=== PATIENT | female | born 1965 | race African-American/Black ===

== ENCOUNTER 2017-11-23 10:55 | Inpatient (IN) | payer OTHER ==
[2017-11-23 13:35] VITALS: BMI 22.3
--- NOTE | 2017-11-23 14:12 | HP ---
COWS - Scale Resting Pulse: 0= [place] 80 or Below Sweatin= Chills/Flushing Restless Observation: 1= Difficult to Sit Still Pupil Size: 0= Normal to Room Light Bone or Joint Aches: 0= None Runny Nose/ Eye Tearin= Runny Nose/Eyes GI Upset > 30mins: 2= Nausea/Diarrhea Tremor Observation: 2= Slight Tremor Visible Yawning Observation: 1= 1-2x During Session Anxiety or Irritability: 2=Irritable/Anxious Goose Flesh Skin: 0=Smooth Skin COWS Score: 11 CIWA Score - CIWA Score Nausea/Vomitin Muscle Tremors: 3 Anxiety: 4-Mod. Anxious/Guarded Agitation: 3 Paroxysmal Sweats: 3 Orientation: 0-Oriented Tacttile Disturbances: 0-None Auditory Disturbances: 0-None Visual Disturbances: 0-None Headache: 0-None Present CIWA-Ar Total Score: 16 Admission ROS BHS - HPI Chief Complaint: "I am an addict and I need help." Patient is here to detox from Heroin and Alcohol. Allergies/Adverse Reactions: Allergies Allergy/AdvReac Type Severity Reaction Status Date / Time No Known Allergies Allergy Verified 11/23/17 13:59 History of Present Illness: Patient is a 52 YO female here to Detox from Heroin and Alcohol. This is patient 's first Detox admission at [facility]. Patient had a previous Detox admissions at [facility] in 09/2017 and at [facility] ([facility]) many years ago. Longest period of sobriety/non-drug use in recent years: approx. 1.5 years within last few years (while incarcerated). Exam Limitations: No Limitations - Ebola screening Have you traveled outside of the country in the last 21 days: No (N) Have you had contact with anyone from an Ebola affected area: No Have you been sick,other than usual withdrawal symptoms: No Do you have a fever: No - Review of Systems Constitutional: Chills, Diaphoresis, Fever, Loss of Appetite, Malaise, Night Sweats, Unintentional Wgt. Loss (Lost approx. 50 lbs. over last three years.) EENT: reports: Blurred Vision, Tearing Respiratory: reports: No Symptoms reported Cardiac: reports: No Symptoms Reported GI: reports: Nausea, Poor Appetite, Vomiting, Indigestion, Abdominal cramping : reports: No Symptoms Reported Musculoskeletal: reports: No Symptoms Reported Integumentary: reports: No Symptoms Reported Neuro: reports: Seizure (Seizure Disorder, Takes Dilantin. Last Seizure: 04/2017 ; evaluated at ER.), Tremors Endocrine: reports: No Symptoms Reported Hematology: reports: No Symptoms Reported, Swollen Glands Psychiatric: reports: Judgement Intact, Mood/Affect Appropiate, Orientated x3, Anxious, Depressed (No previous Treatment.) Other Systems: Reviewed and Negative Patient History - Patient Medical History Hx Anemia: No Hx Asthma: No Hx Chronic Obstructive Pulmonary Disease (COPD): No Hx Cancer: No Hx Cardiac Disorders: No Hx Congestive Heart Failure: No Hx Hypertension: No Hx Hypercholesterolemia: No Hx Pacemaker: No HX Cerebrovascular Accident: No Hx Seizures: Yes (Seizure Disorder, Takes Dilantin; Last Seizure: 04/2017.) Hx Dementia: No Hx Diabetes: No Hx Gastrointestinal Disorders: No Hx Liver Disease: No Hx Genitourinary Disorders: No Hx Sexually Transmitted Disorders: No Hx Renal Disease (ESRD): No Hx Thyroid Disease: No Hx Human Immunodeficiency Virus (HIV): No (Never Tested.) Hx Hepatitis C: No (Does not recall if ever tested, uncertain if postive for Hep B or C.) Hx Depression: Yes (No previous treatment. Patient Declines PSYCH eval. this admission.) Hx Suicide Attempt: No (PATIENT DENIES CURRENT SI / HI.) Hx Bipolar Disorder: No Hx Schizophrenia: No Other Medical History: Hep B or Hep C (tested positive in past, uncertain for which type). - Patient Surgical History Past Surgical History: No Hx Neurologic Surgery: No Hx Cataract Extraction: No Hx Cardiac Surgery: No Hx Lung Surgery: No Hx Breast Surgery: No Hx Breast Biopsy: No Hx Abdominal Surgery: No Hx Appendectomy: No Hx Cholecystectomy: No Hx Genitourinary Surgery: No Hx Section: No Hx Orthopedic Surgery: No Hx Hysterectomy: No Other Surgical History: DENIES. Anesthesia Reaction: No - PPD History Previous Implant?: Yes Documented Results: Negative w/o proof Implanted On Prior R Admission?: No PPD to be Administered?: Yes - Reproductive History Patient is a Female of Child Bearing Age (11 -55 yrs old): Yes LMP comment: Approx. 13 years ago. - Smoking Cessation Smoking history: Current every day smoker Have you smoked in the past 12 months: Yes Aproximately how many cigarettes per day: 20 Cigars Per Day: 0 Hx Chewing Tobacco Use: No Initiated information on smoking cessation: Yes 'Breaking Loose' booklet given: 11/23/17 (GIVEN TO PATIENT.) - Substance & Tx. History Hx Alcohol Use: Yes Hx Substance Use: Yes Substance Use Type: Alcohol, Cocaine, Heroin Hx Substance Use Treatment: Yes (Last Detox admission: [facility], 2017.) - Substances Abused Alcohol Route: Oral Frequency: 1-2 times per week Amount used: 8OZ BEER Age of first use: 2 Date of Last Use: 11/23/17 Cocaine Route: Smoking Frequency: Daily Amount used: $200 Age of first use: 25 Date of Last Use: 11/23/17 Heroin Route: SNIFF Frequency: Daily Amount used: 6 BAGS Age of first use: 12 Date of Last Use: 11/23/17 Family Disease History - Family Disease History Family History: Denies Admission Physical Exam BHS - Vital Signs Vital Signs: Vital Signs - 24 hr 11/23/17 11/23/17 13:27 13:32 Temperature 96.2 F L 96.2 F L Pulse Rate 65 65 Respiratory 20 20 Rate Blood Pressure 130/75 130/75 - Physical General Appearance: Yes: No Apparent Distress, Nourished, Appropriately Dressed , Tremorous, Anxious HEENTM: Yes: Hearing grossly Normal, Normocephalic, Normal Voice, JANNETTE, Pharynx Normal Respiratory: Yes: Chest Non-Tender, Lungs Clear, No Respiratory Distress, No Accessory Muscle Use Neck: Yes: No masses,lesions,Nodules, Supple, Trachea in good position Breast: Yes: Breast Exam Deferred Cardiology: Yes: Regular Rhythm, Regular Rate, S1, S2 Abdominal: Yes: Normal Bowel Sounds, Non Tender, Flat, Soft Genitourinary: Yes: Within Normal Limits Back: Yes: Normal Inspection Musculoskeletal: Yes: full range of Motion, Gait Steady Extremities: Yes: Normal Capillary Refill, Normal Range of Motion, Non-Tender, Tremors Neurological: Yes: Fully Oriented, Alert, Normal Mood/Affect, Normal Response Integumentary: Yes: Normal Color, Dry, Warm Lymphatic: Yes: Within Normal Limits - Diagnostic (1) Opioid dependence with withdrawal Current Visit: Yes Status: Acute (2) Alcohol dependence with uncomplicated withdrawal Current Visit: Yes Status: Acute (3) Cocaine dependence, uncomplicated Current Visit: Yes Status: Acute (4) Nicotine dependence Current Visit: Yes Status: Chronic Qualifiers: Nicotine product type: cigarettes Substance use status: uncomplicated Qualified Code(s): F17.210 - Nicotine dependence, cigarettes, uncomplicated (5) Seizure disorder Current Visit: Yes Status: Chronic Cleared for Admission [facility] - Detox or Rehab [facility] Level of Care: Medically Managed Detox Regimen/Protocol: Methadone/Librium S Breath Alcohol Content Breath Alcohol Content: 0 Urine Pregancy Test - Result Urine Test Results: Negative- NO Line Present Urine Drug Screen - Results Drug Screen Negative: No Urine Drug Screen Results: KANE-Cocaine, OPI-Opiates, BAR-Barbiturates
[2017-11-23] MEDS ORDERED: P-EPHED 60MG/TRIPROLIDI 2.5MG TABLET PO PRN (14:37)
[2017-11-23] MEDS ORDERED: MAG HYDROX/AL HYDROX/SIMETH 30 ML UNIT-DOSE CUP PO PRN (14:37)
[2017-11-23] MEDS ORDERED: IBUPROFEN 400 MG TABLET (FP) PO PRN (14:37)
[2017-11-23] MEDS ORDERED: MAGNESIUM CITRATE 300 ML BOTTLE PO PRN (14:37)
[2017-11-23] MEDS ORDERED: MENTHOL/PHENOL 1 EACH UD MM PRN (14:37)
[2017-11-23] MEDS ORDERED: MAGNESIUM HYDROX 2400MG/30ML ORAL SUSPENSION 30 ML CUP PO PRN (14:37)
[2017-11-23] MEDS ORDERED: ACETAMINOPHEN 325 MG TABLET (FP) PO PRN (14:37)
[2017-11-23] MEDS ORDERED: guaiFENesin/D-METHORPHAN HB 10 ML UNIT-DOSE CUPS PO PRN (14:37)
[2017-11-23] MEDS ORDERED: chlordiazePOXIDE HCL 25 MG CAPSULE PO PRN (14:37)
[2017-11-23] MEDS ORDERED: NICOTINE POLACRILEX 2 MG GUM BUC PRN (14:37)
[2017-11-23] MEDS ORDERED: LOPERAMIDE HCL 2 MG CAPSULE PO PRN (14:37)
[2017-11-23] MEDS ORDERED: chlordiazePOXIDE HCL 25 MG CAPSULE PO ONE (15:45)
[2017-11-23] MEDS ORDERED: METHADONE HCL 10 MG TABLET (FOR DETOX USE ONLY) PO ONE ×2 (15:45→23:00)
[2017-11-23] MEDS: PHENYTOIN NA EXTENDED 100 MG CAPSULE (FP) PO SCH ×2 (15:55→22:52)
[2017-11-23] MEDS: NICOTINE 21 MG/24 HOURS TOPICAL PATCH TD SCH (15:56)
[2017-11-23] MEDS: chlordiazePOXIDE HCL 25 MG CAPSULE PO SCH ×2 (18:34→22:52)
[2017-11-23 21:15] LABS: URINE APPEARANCE SL CLOUDY; URINE BILIRUBIN NEGATIVE (<2.0 mg/dL); URINE COLOR YELLOW; URINE GLUCOSE (UA) NEGATIVE (NEGATIVE)
[2017-11-23 21:16] LABS: URINE BLOOD NEGATIVE (NEGATIVE); URINE KETONE NEGATIVE (NEGATIVE); URINE LEUK ESTERASE TRACE (NEGATIVE); URINE NITRITE NEGATIVE (NEGATIVE); URINE PROTEIN NEGATIVE (NEGATIVE); URINE UROBILINOGEN NORMAL mg/dL (0.2-1.0)
[2017-11-23 21:17] LABS: EPI CELLS FEW /HPF (FEW); URINE BACTERIA RARE /hpf (NONE SEEN); URINE MUCUS RARE
[2017-11-23] MEDS ORDERED: MELATONIN 5 MG TABLETS PO PRN (22:00)
[2017-11-23] MEDS: THIAMINE HCL 100 MG TABLET (FP) PO SCH (22:52)
[2017-11-24] MEDS: PHENYTOIN NA EXTENDED 100 MG CAPSULE (FP) PO SCH ×3 (05:44→22:25)
[2017-11-24] MEDS: chlordiazePOXIDE HCL 25 MG CAPSULE PO SCH ×4 (05:44→22:25)
[2017-11-24] MEDS ORDERED: METHADONE HCL 10 MG TABLET (FOR DETOX USE ONLY) PO SCH (10:00)
[2017-11-24] MEDS: PRENATAL VITAMINS W/ FOLIC ACID TABLET (FP) PO SCH (10:40)
[2017-11-24] MEDS: NICOTINE 21 MG/24 HOURS TOPICAL PATCH TD SCH (10:41)
[2017-11-24 10:42] LABS: HEMATOCRIT 35.5 % (32.4-45.2); HEMOGLOBIN 11.6 GM/dL (10.7-15.3); MCH 28.3 pg (25.7-33.7); MCHC 32.7 g/dl (32.0-36.0); MEAN CELL VOLUME 86.5 fl (80-96); MEAN PLT VOLUME 8.9 fl (7.5-11.1); PLATELET COUNT 146 K/MM3 (134-434); RDW 15.8 % (11.6-15.6)
[2017-11-24 10:49] LABS: ALBUMIN 2.7 g/dl (3.4-5.0); ANION GAP 3 (8-16); BLOOD UREA NITROGEN 25 mg/dL (7-18); CALCIUM 7.9 mg/dL (8.5-10.1); CHLORIDE 113 mmol/L (98-107); CO2 29 mmol/L (21-32); GLUCOSE,RANDOM 91 mg/dL (74-106); POTASSIUM 4.3 mmol/L (3.5-5.1); SODIUM 145 mmol/L (136-145)
[2017-11-24 10:53] LABS: ALK PHOS 137 U/L (45-117); CREATININE 0.7 mg/dL (0.55-1.02); SGOT/AST 13 U/L (15-37); SGPT/ALT 16 U/L (12-78); TOT PROT 5.8 g/dl (6.4-8.2)
[2017-11-24 11:02] LABS: BILIRUBIN,TOTAL < 0.1 mg/dL (0.2-1.0)
--- NOTE | 2017-11-24 13:52 | PN ---
[facility] CIWA - CIWA Score Nausea/Vomitin Muscle Tremors: 3 Anxiety: 3 Agitation: 3 Paroxysmal Sweats: 1-Minimal Palms Moist Orientation: 0-Oriented Tacttile Disturbances: 1-Very Mild Itch/Numbness Auditory Disturbances: 1-Very Mild Visual Disturbances: 0-None Headache: 2-Mild CIWA-Ar Total Score: 17 BHS COWS - Scale Resting Pulse: 1= [place] 81-100 Sweatin= Chills/Flushing Restless Observation: 3= Extraneous Movement Pupil Size: 1= Pupils >than Normal Bone or Joint Aches: 2= Severe Diffuse Aches Runny Nose/ Eye Tearin= Runny Nose/Eyes GI Upset > 30mins: 2= Nausea/Diarrhea Tremor Observation of Outstretched Hands: 2= Slight Tremor Visible Yawning Observation: 1= 1-2x During Session Anxiety or Irritability: 2=Irritable/Anxious Goose Flesh Skin: 0=Smooth Skin COWS Score: 17 [facility] Progress Note (SOAP) Subjective: ALET,IRRITABLE,ANXIOUS,INTERRUPTED SLEEP,TREMOR,PAIN IN THE BODY AND BACK Objective: 11/24/17 13:50 Vital Signs Temperature 97.1 F L 11/24/17 10:50 Pulse Rate 82 11/24/17 10:50 Respiratory Rate 20 11/24/17 10:50 Blood Pressure 124/76 11/24/17 10:50 O2 Sat by Pulse Oximetry (%) EKG NSR,NORMAL ECG Laboratory Last Values WBC 3.0 K/mm3 (4.0-10.0) L 11/24/17 07:50 RBC 4.10 M/mm3 (3.60-5.2) 11/24/17 07:50 Hgb 11.6 GM/dL (10.7-15.3) 11/24/17 07:50 Hct 35.5 % (32.4-45.2) 11/24/17 07:50 MCV 86.5 fl (80-96) 11/24/17 07:50 MCH 28.3 pg (25.7-33.7) 11/24/17 07:50 MCHC 32.7 g/dl (32.0-36.0) 11/24/17 07:50 RDW 15.8 % (11.6-15.6) H 11/24/17 07:50 Plt Count 146 K/MM3 (134-434) 11/24/17 07:50 MPV 8.9 fl (7.5-11.1) 11/24/17 07:50 Sodium 145 mmol/L (136-145) 11/24/17 07:50 Potassium 4.3 mmol/L (3.5-5.1) 11/24/17 07:50 Chloride 113 mmol/L (98-107) H 11/24/17 07:50 Carbon Dioxide 29 mmol/L (21-32) 11/24/17 07:50 Anion Gap 3 (8-16) L 11/24/17 07:50 BUN 25 mg/dL (7-18) H 11/24/17 07:50 Creatinine 0.7 mg/dL (0.55-1.02) 11/24/17 07:50 Creat Clearance w eGFR > 60 (>60) 11/24/17 07:50 Random Glucose 91 mg/dL (74-106) 11/24/17 07:50 Calcium 7.9 mg/dL (8.5-10.1) L 11/24/17 07:50 Total Bilirubin < 0.1 mg/dL (0.2-1.0) L 11/24/17 07:50 AST 13 U/L (15-37) L 11/24/17 07:50 ALT 16 U/L (12-78) 11/24/17 07:50 Alkaline Phosphatase 137 U/L (45-117) H 11/24/17 07:50 Total Protein 5.8 g/dl (6.4-8.2) L 11/24/17 07:50 Albumin 2.7 g/dl (3.4-5.0) L 11/24/17 07:50 Urine Color Yellow 11/23/17 18:40 Urine Appearance Sl cloudy 11/23/17 18:40 Urine pH 6.0 (5.0-8.0) 11/23/17 18:40 Ur Specific [place] 1.025 (1.001-1.035) 11/23/17 18:40 Urine Protein Negative (NEGATIVE) 11/23/17 18:40 Urine Glucose (UA) Negative (NEGATIVE) 11/23/17 18:40 Urine Ketones Negative (NEGATIVE) 11/23/17 18:40 Urine Blood Negative (NEGATIVE) 11/23/17 18:40 Urine Nitrite Negative (NEGATIVE) 11/23/17 18:40 Urine Bilirubin Negative (<2.0 mg/dL) 11/23/17 18:40 Urine Urobilinogen Normal mg/dL (0.2-1.0) 11/23/17 18:40 Ur Leukocyte Esterase Trace (NEGATIVE) 11/23/17 18:40 Urine WBC (Auto) 5 /hpf (3-5) 11/23/17 18:40 Urine RBC (Auto) 2 /hpf (0-3) 11/23/17 18:40 Ur Epithelial Cells Few /HPF (FEW) 11/23/17 18:40 Urine Bacteria Rare /hpf (NONE SEEN) 11/23/17 18:40 Urine Mucus Rare 11/23/17 18:40 RPR Titer Nonreactive (NONREACTIVE) 11/24/17 07:50 HIV 1&2 Antibody Screen Negative 11/24/17 07:50 HIV P24 Antigen Negative 11/24/17 07:50 Assessment: 11/24/17 13:51 WITHDRAWAL SYMPTOM Plan: CONTINUE DETOX
--- NOTE | 2017-11-24 16:09 | PN ---
[facility] Progress Note Note: Laboratory Last Values WBC 3.0 K/mm3 (4.0-10.0) L 11/24/17 07:50 RBC 4.10 M/mm3 (3.60-5.2) 11/24/17 07:50 Hgb 11.6 GM/dL (10.7-15.3) 11/24/17 07:50 Hct 35.5 % (32.4-45.2) 11/24/17 07:50 MCV 86.5 fl (80-96) 11/24/17 07:50 MCH 28.3 pg (25.7-33.7) 11/24/17 07:50 MCHC 32.7 g/dl (32.0-36.0) 11/24/17 07:50 RDW 15.8 % (11.6-15.6) H 11/24/17 07:50 Plt Count 146 K/MM3 (134-434) 11/24/17 07:50 MPV 8.9 fl (7.5-11.1) 11/24/17 07:50 Sodium 145 mmol/L (136-145) 11/24/17 07:50 Potassium 4.3 mmol/L (3.5-5.1) 11/24/17 07:50 Chloride 113 mmol/L (98-107) H 11/24/17 07:50 Carbon Dioxide 29 mmol/L (21-32) 11/24/17 07:50 Anion Gap 3 (8-16) L 11/24/17 07:50 BUN 25 mg/dL (7-18) H 11/24/17 07:50 Creatinine 0.7 mg/dL (0.55-1.02) 11/24/17 07:50 Creat Clearance w eGFR > 60 (>60) 11/24/17 07:50 Random Glucose 91 mg/dL (74-106) 11/24/17 07:50 Calcium 7.9 mg/dL (8.5-10.1) L 11/24/17 07:50 Total Bilirubin < 0.1 mg/dL (0.2-1.0) L 11/24/17 07:50 AST 13 U/L (15-37) L 11/24/17 07:50 ALT 16 U/L (12-78) 11/24/17 07:50 Alkaline Phosphatase 137 U/L (45-117) H 11/24/17 07:50 Total Protein 5.8 g/dl (6.4-8.2) L 11/24/17 07:50 Albumin 2.7 g/dl (3.4-5.0) L 11/24/17 07:50 Urine Color Yellow 11/23/17 18:40 Urine Appearance Sl cloudy 11/23/17 18:40 Urine pH 6.0 (5.0-8.0) 11/23/17 18:40 Ur Specific [place] 1.025 (1.001-1.035) 11/23/17 18:40 Urine Protein Negative (NEGATIVE) 11/23/17 18:40 Urine Glucose (UA) Negative (NEGATIVE) 11/23/17 18:40 Urine Ketones Negative (NEGATIVE) 11/23/17 18:40 Urine Blood Negative (NEGATIVE) 11/23/17 18:40 Urine Nitrite Negative (NEGATIVE) 11/23/17 18:40 Urine Bilirubin Negative (<2.0 mg/dL) 11/23/17 18:40 Urine Urobilinogen Normal mg/dL (0.2-1.0) 11/23/17 18:40 Ur Leukocyte Esterase Trace (NEGATIVE) 11/23/17 18:40 Urine WBC (Auto) 5 /hpf (3-5) 11/23/17 18:40 Urine RBC (Auto) 2 /hpf (0-3) 11/23/17 18:40 Ur Epithelial Cells Few /HPF (FEW) 11/23/17 18:40 Urine Bacteria Rare /hpf (NONE SEEN) 11/23/17 18:40 Urine Mucus Rare 11/23/17 18:40 Phenytoin 5.6 ug/ml (10.0-20.0) L 11/24/17 07:50 RPR Titer Nonreactive (NONREACTIVE) 11/24/17 07:50 HIV 1&2 Antibody Screen Negative 11/24/17 07:50 HIV P24 Antigen Negative 11/24/17 07:50 DILANTIN LEVEL 5.6 DILANTIN 300 MS LOADING DOSE REPEAT DILANTIN LEVEL IN AM CONTINUE DILANTIN 100 MGS PO TID SEIZURE PRECAUTION
[2017-11-24] MEDS ORDERED: PHENYTOIN NA EXTENDED 100 MG CAPSULE (FP) PO ONE (16:15)
[2017-11-24] MEDS: THIAMINE HCL 100 MG TABLET (FP) PO SCH (22:25)
[2017-11-25] MEDS: PHENYTOIN NA EXTENDED 100 MG CAPSULE (FP) PO SCH ×3 (06:02→22:35)
[2017-11-25] MEDS: chlordiazePOXIDE HCL 25 MG CAPSULE PO SCH ×2 (06:02→11:03)
[2017-11-25] MEDS: PRENATAL VITAMINS W/ FOLIC ACID TABLET (FP) PO SCH (11:03)
[2017-11-25] MEDS: METHADONE HCL 5 MG TABLET (FOR DETOX USE ONLY) PO SCH (11:04)
[2017-11-25] MEDS: NICOTINE 21 MG/24 HOURS TOPICAL PATCH TD SCH (11:04)
[2017-11-25] MEDS ORDERED: PHENYTOIN NA EXTENDED 100 MG CAPSULE (FP) PO ONE (11:36)
--- NOTE | 2017-11-25 11:42 | PN ---
[facility] CIWA - CIWA Score Nausea/Vomitin-Mild Nausea/No Vomiting Muscle Tremors: 4-Moderate,w/Arms Extend Anxiety: 3 Agitation: 3 Paroxysmal Sweats: 1-Minimal Palms Moist Orientation: 0-Oriented Tacttile Disturbances: 1-Very Mild Itch/Numbness Auditory Disturbances: 0-None Visual Disturbances: 0-None Headache: 1-Very Mild CIWA-Ar Total Score: 14 BHS COWS - Scale Resting Pulse: 0= [place] 80 or Below Sweatin= Chills/Flushing Restless Observation: 1= Difficult to Sit Still Pupil Size: 0= Normal to Room Light Bone or Joint Aches: 2= Severe Diffuse Aches Runny Nose/ Eye Tearin= Runny Nose/Eyes GI Upset > 30mins: 2= Nausea/Diarrhea Tremor Observation of Outstretched Hands: 2= Slight Tremor Visible Yawning Observation: 2= >3x During Session Anxiety or Irritability: 2=Irritable/Anxious Goose Flesh Skin: 0=Smooth Skin COWS Score: 14 [facility] Progress Note (SOAP) Subjective: joint pain body ache stuffy nose sweat tremor anxiety restlessness trouble sleep at night Objective: 11/25/17 11:40 Vital Signs Temperature 97.7 F 11/25/17 07:04 Pulse Rate 73 11/25/17 07:04 Respiratory Rate 18 11/25/17 07:04 Blood Pressure 134/59 11/25/17 07:04 O2 Sat by Pulse Oximetry (%) Laboratory Last Values WBC 3.0 K/mm3 (4.0-10.0) L 11/24/17 07:50 RBC 4.10 M/mm3 (3.60-5.2) 11/24/17 07:50 Hgb 11.6 GM/dL (10.7-15.3) 11/24/17 07:50 Hct 35.5 % (32.4-45.2) 11/24/17 07:50 MCV 86.5 fl (80-96) 11/24/17 07:50 MCH 28.3 pg (25.7-33.7) 11/24/17 07:50 MCHC 32.7 g/dl (32.0-36.0) 11/24/17 07:50 RDW 15.8 % (11.6-15.6) H 11/24/17 07:50 Plt Count 146 K/MM3 (134-434) 11/24/17 07:50 MPV 8.9 fl (7.5-11.1) 11/24/17 07:50 Sodium 145 mmol/L (136-145) 11/24/17 07:50 Potassium 4.3 mmol/L (3.5-5.1) 11/24/17 07:50 Chloride 113 mmol/L (98-107) H 11/24/17 07:50 Carbon Dioxide 29 mmol/L (21-32) 11/24/17 07:50 Anion Gap 3 (8-16) L 11/24/17 07:50 BUN 25 mg/dL (7-18) H 11/24/17 07:50 Creatinine 0.7 mg/dL (0.55-1.02) 11/24/17 07:50 Creat Clearance w eGFR > 60 (>60) 11/24/17 07:50 Random Glucose 91 mg/dL (74-106) 11/24/17 07:50 Calcium 7.9 mg/dL (8.5-10.1) L 11/24/17 07:50 Total Bilirubin < 0.1 mg/dL (0.2-1.0) L 11/24/17 07:50 AST 13 U/L (15-37) L 11/24/17 07:50 ALT 16 U/L (12-78) 11/24/17 07:50 Alkaline Phosphatase 137 U/L (45-117) H 11/24/17 07:50 Total Protein 5.8 g/dl (6.4-8.2) L 11/24/17 07:50 Albumin 2.7 g/dl (3.4-5.0) L 11/24/17 07:50 Urine Color Yellow 11/23/17 18:40 Urine Appearance Sl cloudy 11/23/17 18:40 Urine pH 6.0 (5.0-8.0) 11/23/17 18:40 Ur Specific [place] 1.025 (1.001-1.035) 11/23/17 18:40 Urine Protein Negative (NEGATIVE) 11/23/17 18:40 Urine Glucose (UA) Negative (NEGATIVE) 11/23/17 18:40 Urine Ketones Negative (NEGATIVE) 11/23/17 18:40 Urine Blood Negative (NEGATIVE) 11/23/17 18:40 Urine Nitrite Negative (NEGATIVE) 11/23/17 18:40 Urine Bilirubin Negative (<2.0 mg/dL) 11/23/17 18:40 Urine Urobilinogen Normal mg/dL (0.2-1.0) 11/23/17 18:40 Ur Leukocyte Esterase Trace (NEGATIVE) 11/23/17 18:40 Urine WBC (Auto) 5 /hpf (3-5) 11/23/17 18:40 Urine RBC (Auto) 2 /hpf (0-3) 11/23/17 18:40 Ur Epithelial Cells Few /HPF (FEW) 11/23/17 18:40 Urine Bacteria Rare /hpf (NONE SEEN) 11/23/17 18:40 Urine Mucus Rare 11/23/17 18:40 Phenytoin 8.4 ug/ml (10.0-20.0) L D 11/25/17 07:30 RPR Titer Nonreactive (NONREACTIVE) 11/24/17 07:50 HIV 1&2 Antibody Screen Negative 11/24/17 07:50 HIV P24 Antigen Negative 11/24/17 07:50 lab noted dilantin 300 mg po now repet serum level 11/26/16 Assessment: 11/25/17 11:41 withdrawal sx seizure Plan: continue detox dilantin 300 mg x 1 now repeat dilantin 11/26/17
[2017-11-25] MEDS: chlordiazePOXIDE 5 MG CAPSULE PO SCH ×2 (17:43→22:35)
[2017-11-25] MEDS: THIAMINE HCL 100 MG TABLET (FP) PO SCH (22:35)
[2017-11-26] MEDS: chlordiazePOXIDE 5 MG CAPSULE PO SCH ×2 (06:42→10:27)
[2017-11-26] MEDS: PHENYTOIN NA EXTENDED 100 MG CAPSULE (FP) PO SCH ×3 (06:42→22:30)
[2017-11-26] MEDS: PRENATAL VITAMINS W/ FOLIC ACID TABLET (FP) PO SCH (10:26)
[2017-11-26] MEDS: METHADONE HCL 5 MG TABLET (FOR DETOX USE ONLY) PO SCH (10:27)
[2017-11-26] MEDS: NICOTINE 21 MG/24 HOURS TOPICAL PATCH TD SCH (10:27)
--- NOTE | 2017-11-26 12:44 | EKG ---
Test Reason : Blood Pressure : / mmHG Vent. Rate : 069 BPM Atrial Rate : 069 BPM P-R Int : 122 ms QRS Dur : 080 ms QT Int : 400 ms P-R-T Axes : 074 063 048 degrees QTc Int : 428 ms NORMAL SINUS RHYTHM NORMAL ECG NO PREVIOUS ECGS AVAILABLE Confirmed by CECELIA WOODALL MD ([id number]) on 11/26/2017 12:43:32 PM Referred By: Confirmed By:CECELIA WOODALL MD
--- NOTE | 2017-11-26 13:22 | PN ---
BHS Progress Note (SOAP) Subjective: sleepy offers no new complaint Objective: 11/26/17 13:20 ambulates steadily Vital Signs Temperature 96.3 F L 11/26/17 10:22 Pulse Rate 73 11/26/17 10:22 Respiratory Rate 18 11/26/17 10:22 Blood Pressure 121/78 11/26/17 10:22 O2 Sat by Pulse Oximetry (%) Assessment: 11/26/17 13:22 withdrawal sx Plan: Continue detox
[2017-11-26] MEDS: chlordiazePOXIDE HCL 10 MG CAPSULE PO SCH ×2 (17:16→22:31)
[2017-11-26] MEDS: THIAMINE HCL 100 MG TABLET (FP) PO SCH (22:30)
[2017-11-27] MEDS: PHENYTOIN NA EXTENDED 100 MG CAPSULE (FP) PO SCH ×2 (06:03→13:13)
[2017-11-27] MEDS: chlordiazePOXIDE HCL 10 MG CAPSULE PO SCH ×2 (06:03→10:04)
[2017-11-27] MEDS ORDERED: METHADONE HCL 10 MG TABLET (FOR DETOX USE ONLY) PO SCH (10:00)
[2017-11-27] MEDS: PRENATAL VITAMINS W/ FOLIC ACID TABLET (FP) PO SCH (10:02)
[2017-11-27] MEDS: NICOTINE 21 MG/24 HOURS TOPICAL PATCH TD SCH (10:04)
[2017-11-27 10:22] VITALS: BP 137/71; PULSE 83; TEMP 98.1
--- NOTE | 2017-11-27 11:25 | PN ---
BHS Progress Note (SOAP) Subjective: feeling better no body pain no joint aches no tremor less sweat Objective: 11/27/17 11:23 Vital Signs Temperature 98.1 F 11/27/17 10:21 Pulse Rate 83 11/27/17 10:21 Respiratory Rate 18 11/27/17 10:21 Blood Pressure 137/71 11/27/17 10:21 O2 Sat by Pulse Oximetry (%) Laboratory Last Values WBC 3.0 K/mm3 (4.0-10.0) L 11/24/17 07:50 RBC 4.10 M/mm3 (3.60-5.2) 11/24/17 07:50 Hgb 11.6 GM/dL (10.7-15.3) 11/24/17 07:50 Hct 35.5 % (32.4-45.2) 11/24/17 07:50 MCV 86.5 fl (80-96) 11/24/17 07:50 MCH 28.3 pg (25.7-33.7) 11/24/17 07:50 MCHC 32.7 g/dl (32.0-36.0) 11/24/17 07:50 RDW 15.8 % (11.6-15.6) H 11/24/17 07:50 Plt Count 146 K/MM3 (134-434) 11/24/17 07:50 MPV 8.9 fl (7.5-11.1) 11/24/17 07:50 Sodium 145 mmol/L (136-145) 11/24/17 07:50 Potassium 4.3 mmol/L (3.5-5.1) 11/24/17 07:50 Chloride 113 mmol/L (98-107) H 11/24/17 07:50 Carbon Dioxide 29 mmol/L (21-32) 11/24/17 07:50 Anion Gap 3 (8-16) L 11/24/17 07:50 BUN 25 mg/dL (7-18) H 11/24/17 07:50 Creatinine 0.7 mg/dL (0.55-1.02) 11/24/17 07:50 Creat Clearance w eGFR > 60 (>60) 11/24/17 07:50 Random Glucose 91 mg/dL (74-106) 11/24/17 07:50 Calcium 7.9 mg/dL (8.5-10.1) L 11/24/17 07:50 Total Bilirubin < 0.1 mg/dL (0.2-1.0) L 11/24/17 07:50 AST 13 U/L (15-37) L 11/24/17 07:50 ALT 16 U/L (12-78) 11/24/17 07:50 Alkaline Phosphatase 137 U/L (45-117) H 11/24/17 07:50 Total Protein 5.8 g/dl (6.4-8.2) L 11/24/17 07:50 Albumin 2.7 g/dl (3.4-5.0) L 11/24/17 07:50 Urine Color Yellow 11/23/17 18:40 Urine Appearance Sl cloudy 11/23/17 18:40 Urine pH 6.0 (5.0-8.0) 11/23/17 18:40 Ur Specific [place] 1.025 (1.001-1.035) 11/23/17 18:40 Urine Protein Negative (NEGATIVE) 11/23/17 18:40 Urine Glucose (UA) Negative (NEGATIVE) 11/23/17 18:40 Urine Ketones Negative (NEGATIVE) 11/23/17 18:40 Urine Blood Negative (NEGATIVE) 11/23/17 18:40 Urine Nitrite Negative (NEGATIVE) 11/23/17 18:40 Urine Bilirubin Negative (<2.0 mg/dL) 11/23/17 18:40 Urine Urobilinogen Normal mg/dL (0.2-1.0) 11/23/17 18:40 Ur Leukocyte Esterase Trace (NEGATIVE) 11/23/17 18:40 Urine WBC (Auto) 5 /hpf (3-5) 11/23/17 18:40 Urine RBC (Auto) 2 /hpf (0-3) 11/23/17 18:40 Ur Epithelial Cells Few /HPF (FEW) 11/23/17 18:40 Urine Bacteria Rare /hpf (NONE SEEN) 11/23/17 18:40 Urine Mucus Rare 11/23/17 18:40 Phenytoin 14.9 ug/ml (10.0-20.0) D 11/26/17 07:30 RPR Titer Nonreactive (NONREACTIVE) 11/24/17 07:50 HIV 1&2 Antibody Screen Negative 11/24/17 07:50 HIV P24 Antigen Negative 11/24/17 07:50 lab noted hypocalcemia Assessment: 11/27/17 11:25 mild withdrawal sx low calcium 11/27/17 11:25 11/27/17 11:26 seizure Plan: medically supervised detox melissa farr level
[2017-11-27] MEDS ORDERED: CALCIUM 250MG/VIT-D 125 UNITS 1 COMBO TABLET PO SCH (12:00)
--- NOTE | 2017-11-27 14:29 | DS ---
[facility] Detox Discharge Summary Admission Date: 11/23/17 Discharge Date: 11/27/17 - History Present History: Alcohol Dependence, Opioid Dependence Additional Comments: 52 years old female admitted on 11/23/17 for alcohol and opioid detox patient wants to terminate her detox regimen today that detox is not for her denies suicidal denies homocidal no self destructive behavior patient is alert oriented x 3 no acute distress health teaching on risk of addiction encourage aftercare as arranged by the counselor - Physical Exam Results Vital Signs: Vital Signs Temperature 98.1 F 11/27/17 10:21 Pulse Rate 83 11/27/17 10:21 Respiratory Rate 18 11/27/17 10:21 Blood Pressure 137/71 11/27/17 10:21 O2 Sat by Pulse Oximetry (%) Pertinent Admission Physical Exam Findings: withdrawal sx Vital Signs Temperature 98.1 F 11/27/17 10:21 Pulse Rate 83 11/27/17 10:21 Respiratory Rate 18 11/27/17 10:21 Blood Pressure 137/71 11/27/17 10:21 O2 Sat by Pulse Oximetry (%) Laboratory Last Values WBC 3.0 K/mm3 (4.0-10.0) L 11/24/17 07:50 RBC 4.10 M/mm3 (3.60-5.2) 11/24/17 07:50 Hgb 11.6 GM/dL (10.7-15.3) 11/24/17 07:50 Hct 35.5 % (32.4-45.2) 11/24/17 07:50 MCV 86.5 fl (80-96) 11/24/17 07:50 MCH 28.3 pg (25.7-33.7) 11/24/17 07:50 MCHC 32.7 g/dl (32.0-36.0) 11/24/17 07:50 RDW 15.8 % (11.6-15.6) H 11/24/17 07:50 Plt Count 146 K/MM3 (134-434) 11/24/17 07:50 MPV 8.9 fl (7.5-11.1) 11/24/17 07:50 Sodium 145 mmol/L (136-145) 11/24/17 07:50 Potassium 4.3 mmol/L (3.5-5.1) 11/24/17 07:50 Chloride 113 mmol/L (98-107) H 11/24/17 07:50 Carbon Dioxide 29 mmol/L (21-32) 11/24/17 07:50 Anion Gap 3 (8-16) L 11/24/17 07:50 BUN 25 mg/dL (7-18) H 11/24/17 07:50 Creatinine 0.7 mg/dL (0.55-1.02) 11/24/17 07:50 Creat Clearance w eGFR > 60 (>60) 11/24/17 07:50 Random Glucose 91 mg/dL (74-106) 11/24/17 07:50 Calcium 7.9 mg/dL (8.5-10.1) L 11/24/17 07:50 Total Bilirubin < 0.1 mg/dL (0.2-1.0) L 11/24/17 07:50 AST 13 U/L (15-37) L 11/24/17 07:50 ALT 16 U/L (12-78) 11/24/17 07:50 Alkaline Phosphatase 137 U/L (45-117) H 11/24/17 07:50 Total Protein 5.8 g/dl (6.4-8.2) L 11/24/17 07:50 Albumin 2.7 g/dl (3.4-5.0) L 11/24/17 07:50 Urine Color Yellow 11/23/17 18:40 Urine Appearance Sl cloudy 11/23/17 18:40 Urine pH 6.0 (5.0-8.0) 11/23/17 18:40 Ur Specific Bryce 1.025 (1.001-1.035) 11/23/17 18:40 Urine Protein Negative (NEGATIVE) 11/23/17 18:40 Urine Glucose (UA) Negative (NEGATIVE) 11/23/17 18:40 Urine Ketones Negative (NEGATIVE) 11/23/17 18:40 Urine Blood Negative (NEGATIVE) 11/23/17 18:40 Urine Nitrite Negative (NEGATIVE) 11/23/17 18:40 Urine Bilirubin Negative (<2.0 mg/dL) 11/23/17 18:40 Urine Urobilinogen Normal mg/dL (0.2-1.0) 11/23/17 18:40 Ur Leukocyte Esterase Trace (NEGATIVE) 11/23/17 18:40 Urine WBC (Auto) 5 /hpf (3-5) 11/23/17 18:40 Urine RBC (Auto) 2 /hpf (0-3) 11/23/17 18:40 Ur Epithelial Cells Few /HPF (FEW) 11/23/17 18:40 Urine Bacteria Rare /hpf (NONE SEEN) 11/23/17 18:40 Urine Mucus Rare 11/23/17 18:40 Phenytoin 14.9 ug/ml (10.0-20.0) D 11/26/17 07:30 RPR Titer Nonreactive (NONREACTIVE) 11/24/17 07:50 HIV 1&2 Antibody Screen Negative 11/24/17 07:50 HIV P24 Antigen Negative 11/24/17 07:50 lab noted - Treatment Hospital Course: Detox Protocol Followed, Responded well Patient has Accepted a Rehab Referral to: as per counselor arranged - Medication Discharge Medications: Ambulatory Orders Phenytoin Na Extended [Dilantin -] 100 mg PO TID #90 capsule 11/27/17 - Diagnosis (1) Alcohol dependence with uncomplicated withdrawal Status: Acute (2) Opioid dependence with withdrawal Status: Acute (3) Nicotine dependence Status: Acute Qualifiers: Nicotine product type: cigarettes Substance use status: in withdrawal Qualified Code(s): F17.213 - Nicotine dependence, cigarettes, with withdrawal (4) Seizure disorder Status: Chronic - AMA Did Patient Leave Against Medical Advice: Yes
[2017-11-28] MEDS ORDERED: METHADONE HCL 5 MG TABLET (FOR DETOX USE ONLY) PO SCH (06:00)
== END 2017-11-27 13:30 | disposition left against medical advice (07) | DRG 770 ==
LOC: YASAS 10:55 → Y6N 15:18
PROVIDERS: ADMIT Internal Medicine; ATTEND Internal Medicine
PROC: HZ2ZZZZ Detoxification Services for Substance Abuse Treatment (ICD-10-PCS; principal; 2017-11-23)
DX: F11.23 Opioid dependence with withdrawal (principal); F10.230 Alcohol dependence with withdrawal, uncomplicated; F14.20 Cocaine dependence, uncomplicated; F17.213 Nicotine dependence, cigarettes, with withdrawal; G40.909 Epilepsy, unspecified, not intractable, without status epilepticus
CPT/HCPCS: 36415; 80053; 80185; 81003; 81015; 85027; 86593; 87389; 93005; 93010

== ENCOUNTER 2018-01-14 11:39 | Inpatient (IN) | payer OTHER ==
[2018-01-14 13:37] VITALS: BMI 21.5
--- NOTE | 2018-01-14 15:38 | HP ---
COWS - Scale Resting Pulse: 0= [place] 80 or Below Sweatin= Chills/Flushing Restless Observation: 3= Extraneous Movement Pupil Size: 0= Normal to Room Light Bone or Joint Aches: 2= Severe Diffuse Aches Runny Nose/ Eye Tearin= Runny Nose/Eyes GI Upset > 30mins: 2= Nausea/Diarrhea Tremor Observation: 2= Slight Tremor Visible Yawning Observation: 2= >3x During Session Anxiety or Irritability: 2=Irritable/Anxious Goose Flesh Skin: 0=Smooth Skin COWS Score: 16 CIWA Score - CIWA Score Nausea/Vomitin-Mild Nausea/No Vomiting Muscle Tremors: 4-Moderate,w/Arms Extend Anxiety: 4-Mod. Anxious/Guarded Agitation: 4-Moderately Restless Paroxysmal Sweats: 1-Minimal Palms Moist Orientation: 1-Uncertain about Date Tacttile Disturbances: 1-Very Mild Itch/Numbness Auditory Disturbances: 0-None Visual Disturbances: 0-None Headache: 2-Mild CIWA-Ar Total Score: 18 Admission ROS S - HPI Chief Complaint: alcohol and opiate withdrawal sx Allergies/Adverse Reactions: Allergies Allergy/AdvReac Type Severity Reaction Status Date / Time No Known Allergies Allergy Verified 01/14/18 13:52 History of Present Illness: 52 years old female with long history of alcohol opiate nicotine dependence had seizure Exam Limitations: No Limitations - Ebola screening Have you traveled outside of the country in the last 21 days: No (N) Have you had contact with anyone from an Ebola affected area: No Have you been sick,other than usual withdrawal symptoms: No Do you have a fever: No - Review of Systems Constitutional: Loss of Appetite, Changes in sleep, Unintentional Wgt. Loss, Unexplained wgt Loss EENT: reports: Dental Problems (multiple teeth missing) Respiratory: reports: No Symptoms reported Cardiac: reports: No Symptoms Reported GI: reports: Nausea, Poor Appetite, Poor Fluid Intake, Abdominal cramping : reports: No Symptoms Reported Musculoskeletal: reports: Back Pain, Joint Pain, Muscle Pain, Neck Pain Integumentary: reports: No Symptoms Reported Neuro: reports: Seizure (01/12/18 since 1992 brain aneurythem), Tremors Endocrine: reports: No Symptoms Reported Hematology: reports: No Symptoms Reported Psychiatric: reports: Judgement Intact, Mood/Affect Appropiate, Orientated x3 Other Systems: Reviewed and Negative Patient History - Patient Medical History Hx Anemia: No Hx Asthma: No Hx Chronic Obstructive Pulmonary Disease (COPD): No Hx Cancer: No Hx Cardiac Disorders: No Hx Congestive Heart Failure: No Hx Hypertension: No Hx Hypercholesterolemia: No Hx Pacemaker: No HX Cerebrovascular Accident: No 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) Hx Dementia: No Hx Diabetes: No Hx Gastrointestinal Disorders: No Hx Liver Disease: No Hx Genitourinary Disorders: No Hx Sexually Transmitted Disorders: No (gonorrhea and syphilis) Hx Renal Disease (ESRD): No Hx Thyroid Disease: No Hx Human Immunodeficiency Virus (HIV): No (Never Tested.) Hx Hepatitis C: No (Does not recall if ever tested, uncertain if postive for Hep B or C.) Hx Depression: No Hx Suicide Attempt: No Hx Bipolar Disorder: No Hx Schizophrenia: No - Patient Surgical History Past Surgical History: Yes Hx Neurologic Surgery: Yes (brain aneurysm in 1992) Hx Cataract Extraction: No Hx Cardiac Surgery: No Hx Lung Surgery: No Hx Breast Surgery: No Hx Breast Biopsy: No Hx Abdominal Surgery: No Hx Appendectomy: No Hx Cholecystectomy: No Hx Genitourinary Surgery: No Hx Section: No Hx Orthopedic Surgery: No Hx Hysterectomy: No Other Surgical History: DENIES. Anesthesia Reaction: No - PPD History Previous Implant?: Yes Documented Results: Negative w/proof Implanted On Prior [facility] Admission?: Yes Date: 11/25/17 Results: 0 mm PPD to be Administered?: No - Reproductive History Patient is a Female of Child Bearing Age (11 -55 yrs old): Yes Last Menstrual Period: 01/15/08 Patient : No - Smoking Cessation Smoking history: Current every day smoker Have you smoked in the past 12 months: Yes Aproximately how many cigarettes per day: 10 Cigars Per Day: 0 Hx Chewing Tobacco Use: No Initiated information on smoking cessation: Yes 'Breaking Loose' booklet given: 01/14/18 - Substance & Tx. History Hx Alcohol Use: Yes Hx Substance Use: Yes Substance Use Type: Alcohol, Cocaine, Opiates Hx Substance Use Treatment: Yes (11/2017 [facility]) - Substances Abused Heroin Route: Inhalation Frequency: Daily Amount used: 6-8 bags Age of first use: 12 Date of Last Use: 01/14/18 Crack Route: Smoking Frequency: Daily Amount used: $300 Age of first use: 26 Date of Last Use: 01/14/18 Alcohol-vodka/beer Route: Oral Frequency: Daily Amount used: 2-3 pts./1- pk. Age of first use: 11 Date of Last Use: 01/14/18 Family Disease History - Family Disease History Family Disease History: [place]: Father (), Mother (), Other: Father , Mother, Brother (no contact), Sister (no contact) Admission Physical Exam [facility] - Vital Signs Vital Signs: Vital Signs - 24 hr 01/14/18 13:29 Temperature 97.9 F Pulse Rate 68 Respiratory 20 Rate Blood Pressure 154/86 - Physical General Appearance: Yes: Appropriately Dressed, Mild Distress, Thin, Tremorous, Irritable, Sweating, Anxious HEENTM: Yes: Hearing grossly Normal, Normocephalic, Normal Voice, Other ( craniotomy 1993 aneurythem repaired) Respiratory: Yes: Chest Non-Tender, Lungs Clear, Normal Breath Sounds, No Respiratory Distress, No Accessory Muscle Use Neck: Yes: Supple, Trachea in good position Breast: Yes: Breasts Symetrical, No Discharge Cardiology: Yes: Regular Rhythm, Regular Rate, S1, S2 Abdominal: Yes: Non Tender, Flat, Increased Bowel Sounds Genitourinary: Yes: Within Normal Limits Back: Yes: Normal Inspection Musculoskeletal: Yes: full range of Motion, Gait Steady, Back pain, Muscle Pain Extremities: Yes: Normal Inspection, Normal Range of Motion, Non-Tender, Tremors Neurological: Yes: Fully Oriented, Alert, Motor Strength 5/5, Normal Mood/Affect , Normal Response Integumentary: Yes: Warm Lymphatic: Yes: Within Normal Limits - Diagnostic (1) Alcohol dependence with uncomplicated withdrawal Current Visit: Yes Status: Acute (2) Nicotine dependence Current Visit: Yes Status: Acute Qualifiers: Nicotine product type: cigarettes Substance use status: in withdrawal Qualified Code(s): F17.213 - Nicotine dependence, cigarettes, with withdrawal (3) Opioid dependence with withdrawal Current Visit: Yes Status: Acute (4) Seizure disorder Current Visit: Yes Status: Chronic Comment: dilantin level pending Cleared for Admission [facility] - Detox or Rehab [facility] Level of Care: Medically Managed Detox Regimen/Protocol: Methadone/Librium [facility] Breath Alcohol Content Breath Alcohol Content: 0 Urine Pregancy Test - Result Urine Test Results: Negative- NO Line Present Urine Drug Screen - Results Drug Screen Negative: No Urine Drug Screen Results: KANE-Cocaine, OPI-Opiates, BAR-Barbiturates
[2018-01-14] MEDS ORDERED: IBUPROFEN 400 MG TABLET (FP) PO PRN (15:45)
[2018-01-14] MEDS ORDERED: MAGNESIUM HYDROX 2400MG/30ML ORAL SUSPENSION 30 ML CUP PO PRN (15:45)
[2018-01-14] MEDS ORDERED: LOPERAMIDE HCL 2 MG CAPSULE PO PRN (15:45)
[2018-01-14] MEDS ORDERED: ACETAMINOPHEN 325 MG TABLET (FP) PO PRN (15:45)
[2018-01-14] MEDS ORDERED: MAGNESIUM CITRATE 300 ML BOTTLE PO PRN (15:45)
[2018-01-14] MEDS ORDERED: chlordiazePOXIDE HCL 25 MG CAPSULE PO PRN (15:45)
[2018-01-14] MEDS ORDERED: guaiFENesin/D-METHORPHAN HB 10 ML UNIT-DOSE CUPS PO PRN (15:45)
[2018-01-14] MEDS ORDERED: MAG HYDROX/AL HYDROX/SIMETH 30 ML UNIT-DOSE CUP PO PRN (15:45)
[2018-01-14] MEDS ORDERED: P-EPHED 60MG/TRIPROLIDI 2.5MG TABLET PO PRN (15:45)
[2018-01-14] MEDS ORDERED: MENTHOL/PHENOL 1 EACH UD MM PRN (15:45)
[2018-01-14] MEDS ORDERED: NICOTINE POLACRILEX 2 MG GUM BC PRN (15:45)
[2018-01-14] MEDS ORDERED: METHADONE HCL 10 MG TABLET (FOR DETOX USE ONLY) PO ONE ×2 (16:45→23:00)
[2018-01-14] MEDS: chlordiazePOXIDE HCL 25 MG CAPSULE PO SCH ×2 (18:33→22:19)
[2018-01-14] MEDS: PHENYTOIN NA EXTENDED 100 MG CAPSULE (FP) PO SCH ×2 (18:34→22:17)
[2018-01-14] MEDS: NICOTINE 14 MG/24 HOURS TOPICAL PATCH TD SCH (18:36)
[2018-01-14] MEDS ORDERED: MELATONIN 5 MG TABLETS PO PRN (22:00)
[2018-01-14] MEDS: THIAMINE HCL 100 MG TABLET (FP) PO SCH (22:17)
[2018-01-15 02:19] LABS: URINE APPEARANCE CLOUDY; URINE BILIRUBIN NEGATIVE (<2.0 mg/dL); URINE BLOOD NEGATIVE (NEGATIVE); URINE COLOR AMBER; URINE GLUCOSE (UA) NEGATIVE (NEGATIVE); URINE KETONE NEGATIVE (NEGATIVE); URINE LEUK ESTERASE TRACE (NEGATIVE); URINE NITRITE POSITIVE (NEGATIVE)
[2018-01-15 02:41] LABS: URINE PROTEIN 1+ (NEGATIVE)
[2018-01-15 02:52] LABS: EPI CELLS FEW /HPF (FEW); URINE BACTERIA FEW /hpf (NONE SEEN); URINE MUCUS MANY
[2018-01-15] MEDS: PHENYTOIN NA EXTENDED 100 MG CAPSULE (FP) PO SCH ×3 (05:18→22:16)
[2018-01-15] MEDS: chlordiazePOXIDE HCL 25 MG CAPSULE PO SCH ×4 (05:18→22:16)
[2018-01-15] MEDS ORDERED: METHADONE HCL 10 MG TABLET (FOR DETOX USE ONLY) PO SCH (10:00)
[2018-01-15 10:22] LABS: HEMATOCRIT 35.6 % (32.4-45.2); HEMOGLOBIN 11.5 GM/dL (10.7-15.3); MCH 28.6 pg (25.7-33.7); MCHC 32.4 g/dl (32.0-36.0); MEAN CELL VOLUME 88.3 fl (80-96); MEAN PLT VOLUME 9.1 fl (7.5-11.1); PLATELET COUNT 219 K/MM3 (134-434); RBC 4.03 M/mm3 (3.60-5.2); RDW 14.8 % (11.6-15.6); WHITE BLOOD COUNT 4.4 K/mm3 (4.0-10.0)
[2018-01-15] MEDS: PRENATAL VITAMINS W/ FOLIC ACID TABLET (FP) PO SCH (10:31)
[2018-01-15] MEDS: NICOTINE 14 MG/24 HOURS TOPICAL PATCH TD SCH (10:32)
[2018-01-15 10:46] LABS: ALBUMIN 3.1 g/dl (3.4-5.0); ANION GAP 9 (8-16); BILIRUBIN,TOTAL 0.2 mg/dL (0.2-1.0); BLOOD UREA NITROGEN 17 mg/dL (7-18); CALCIUM 8.4 mg/dL (8.5-10.1); CHLORIDE 109 mmol/L (98-107); CO2 27 mmol/L (21-32); CREATININE 0.8 mg/dL (0.55-1.02); GLUCOSE,RANDOM 80 mg/dL (74-106); POTASSIUM 4.3 mmol/L (3.5-5.1); SGOT/AST 20 U/L (15-37); SGPT/ALT 21 U/L (12-78); SODIUM 145 mmol/L (136-145); TOT PROT 6.9 g/dl (6.4-8.2)
[2018-01-15 10:49] LABS: ALK PHOS 153 U/L (45-117)
--- NOTE | 2018-01-15 11:04 | PN ---
[facility] CIWA - CIWA Score Nausea/Vomitin Muscle Tremors: 3 Anxiety: 2 Agitation: 2 Paroxysmal Sweats: 1-Minimal Palms Moist Orientation: 0-Oriented Tacttile Disturbances: 1-Very Mild Itch/Numbness Auditory Disturbances: 1-Very Mild Visual Disturbances: 1-Very Mild Sensitivity Headache: 2-Mild CIWA-Ar Total Score: 16 BHS COWS - Scale Resting Pulse: 0= [place] 80 or Below Sweatin= Chills/Flushing Restless Observation: 3= Extraneous Movement Pupil Size: 1= Pupils >than Normal Bone or Joint Aches: 2= Severe Diffuse Aches Runny Nose/ Eye Tearin= Runny Nose/Eyes GI Upset > 30mins: 2= Nausea/Diarrhea Tremor Observation of Outstretched Hands: 2= Slight Tremor Visible Yawning Observation: 1= 1-2x During Session Anxiety or Irritability: 2=Irritable/Anxious Goose Flesh Skin: 0=Smooth Skin COWS Score: 16 [facility] Progress Note (SOAP) Subjective: alert,irritable,anxious,interrupted sleep,tremor,pain in the body and back Objective: 01/15/18 11:02 Vital Signs Temperature 98.1 F 01/15/18 09:19 Pulse Rate 79 01/15/18 09:19 Respiratory Rate 18 01/15/18 09:19 Blood Pressure 127/74 01/15/18 09:19 O2 Sat by Pulse Oximetry (%) ekg nsr,prolong qt 390/435 no chest pain,no sob,no dizziness Laboratory Last Values WBC 4.4 K/mm3 (4.0-10.0) D 01/15/18 06:00 RBC 4.03 M/mm3 (3.60-5.2) 01/15/18 06:00 Hgb 11.5 GM/dL (10.7-15.3) 01/15/18 06:00 Hct 35.6 % (32.4-45.2) 01/15/18 06:00 MCV 88.3 fl (80-96) 01/15/18 06:00 MCH 28.6 pg (25.7-33.7) 01/15/18 06:00 MCHC 32.4 g/dl (32.0-36.0) 01/15/18 06:00 RDW 14.8 % (11.6-15.6) 01/15/18 06:00 Plt Count 219 K/MM3 (134-434) D 01/15/18 06:00 MPV 9.1 fl (7.5-11.1) 01/15/18 06:00 Sodium 145 mmol/L (136-145) 01/15/18 06:00 Potassium 4.3 mmol/L (3.5-5.1) 01/15/18 06:00 Chloride 109 mmol/L (98-107) H 01/15/18 06:00 Carbon Dioxide 27 mmol/L (21-32) 01/15/18 06:00 Anion Gap 9 (8-16) 01/15/18 06:00 BUN 17 mg/dL (7-18) 01/15/18 06:00 Creatinine 0.8 mg/dL (0.55-1.02) 01/15/18 06:00 Creat Clearance w eGFR > 60 (>60) 01/15/18 06:00 Random Glucose 80 mg/dL (74-106) 01/15/18 06:00 Calcium 8.4 mg/dL (8.5-10.1) L 01/15/18 06:00 Total Bilirubin 0.2 mg/dL (0.2-1.0) D 01/15/18 06:00 AST 20 U/L (15-37) 01/15/18 06:00 ALT 21 U/L (12-78) 01/15/18 06:00 Alkaline Phosphatase 153 U/L (45-117) H 01/15/18 06:00 Total Protein 6.9 g/dl (6.4-8.2) 01/15/18 06:00 Albumin 3.1 g/dl (3.4-5.0) L 01/15/18 06:00 Urine Color Coleen 01/14/18 Unknown Urine Appearance Cloudy 01/14/18 Unknown Urine pH 6.0 (5.0-8.0) 01/14/18 Unknown Ur Specific [place] 1.030 (1.001-1.035) 01/14/18 Unknown Urine Protein 1+ (NEGATIVE) H 01/14/18 Unknown Urine Glucose (UA) Negative (NEGATIVE) 01/14/18 Unknown Urine Ketones Negative (NEGATIVE) 01/14/18 Unknown Urine Blood Negative (NEGATIVE) 01/14/18 Unknown Urine Nitrite Positive (NEGATIVE) 01/14/18 Unknown Urine Bilirubin Negative (<2.0 mg/dL) 01/14/18 Unknown Urine Urobilinogen 2.0 mg/dL (0.2-1.0) H 01/14/18 Unknown Ur Leukocyte Esterase Trace (NEGATIVE) 01/14/18 Unknown Urine WBC (Auto) 9 /hpf (3-5) 01/14/18 Unknown Urine RBC (Auto) 6 /hpf (0-3) 01/14/18 Unknown Ur Epithelial Cells Few /HPF (FEW) 01/14/18 Unknown Urine Bacteria Few /hpf (NONE SEEN) 01/14/18 Unknown Urine Mucus Many 01/14/18 Unknown 01/15/18 11:04 lab pending Assessment: 01/15/18 11:04 withdrawal symptom Plan: continue detox
--- NOTE | 2018-01-15 17:59 | EKG ---
Test Reason : Blood Pressure : / mmHG Vent. Rate : 075 BPM Atrial Rate : 075 BPM P-R Int : 114 ms QRS Dur : 078 ms QT Int : 390 ms P-R-T Axes : 069 053 050 degrees QTc Int : 435 ms NORMAL SINUS RHYTHM POSSIBLE ANTERIOR INFARCT , AGE UNDETERMINED ABNORMAL ECG WHEN COMPARED WITH ECG OF 14-JAN-2018 18:18, NO SIGNIFICANT CHANGE WAS FOUND Confirmed by MD KATHERINE, MILENA ([id number]) on 01/15/2018 5:59:23 PM Referred By: Confirmed By:MILENA MURPHY MD
--- NOTE | 2018-01-15 18:00 | EKG ---
Test Reason : Blood Pressure : / mmHG Vent. Rate : 074 BPM Atrial Rate : 074 BPM P-R Int : 122 ms QRS Dur : 076 ms QT Int : 390 ms P-R-T Axes : 075 057 052 degrees QTc Int : 432 ms NORMAL SINUS RHYTHM NONSPECIFIC ST ABNORMALITY ABNORMAL ECG WHEN COMPARED WITH ECG OF 23-NOV-2017 15:43, NO SIGNIFICANT CHANGE WAS FOUND Confirmed by MD KATHERINE, MILENA ([id number]) on 01/15/2018 5:59:50 PM Referred By: Confirmed By:MILENA MURPHY MD
[2018-01-15] MEDS: THIAMINE HCL 100 MG TABLET (FP) PO SCH (22:16)
[2018-01-16] MEDS: chlordiazePOXIDE HCL 25 MG CAPSULE PO SCH ×2 (06:12→10:50)
[2018-01-16] MEDS: PHENYTOIN NA EXTENDED 100 MG CAPSULE (FP) PO SCH ×3 (07:12→22:32)
[2018-01-16] MEDS: METHADONE HCL 5 MG TABLET (FOR DETOX USE ONLY) PO SCH (10:49)
[2018-01-16] MEDS: NICOTINE 14 MG/24 HOURS TOPICAL PATCH TD SCH (10:49)
[2018-01-16] MEDS: PRENATAL VITAMINS W/ FOLIC ACID TABLET (FP) PO SCH (10:49)
--- NOTE | 2018-01-16 11:27 | PN ---
[facility] CIWA - CIWA Score Nausea/Vomitin Muscle Tremors: 3 Anxiety: 2 Agitation: 2 (0) Paroxysmal Sweats: 1-Minimal Palms Moist Orientation: 0-Oriented Tacttile Disturbances: 1-Very Mild Itch/Numbness Auditory Disturbances: 1-Very Mild Visual Disturbances: 0-None Headache: 2-Mild CIWA-Ar Total Score: 15 BHS COWS - Scale Resting Pulse: 0= [place] 80 or Below Sweatin= Chills/Flushing Restless Observation: 3= Extraneous Movement Pupil Size: 1= Pupils >than Normal Bone or Joint Aches: 2= Severe Diffuse Aches Runny Nose/ Eye Tearin= Runny Nose/Eyes GI Upset > 30mins: 2= Nausea/Diarrhea Tremor Observation of Outstretched Hands: 2= Slight Tremor Visible Yawning Observation: 1= 1-2x During Session Anxiety or Irritability: 2=Irritable/Anxious Goose Flesh Skin: 0=Smooth Skin COWS Score: 16 S Progress Note (SOAP) Subjective: alert,irritable,anxious,interrupted sleep,pain in the body and back Objective: 01/16/18 11:24 Vital Signs Temperature 97.0 F L 01/16/18 09:37 Pulse Rate 77 01/16/18 09:37 Respiratory Rate 16 01/16/18 09:37 Blood Pressure 139/94 01/16/18 09:37 O2 Sat by Pulse Oximetry (%) Assessment: 01/16/18 11:25 withdrawal symptom Plan: continue detox
[2018-01-16] MEDS: chlordiazePOXIDE 5 MG CAPSULE PO SCH ×2 (18:10→22:31)
[2018-01-16] MEDS: THIAMINE HCL 100 MG TABLET (FP) PO SCH (22:32)
[2018-01-17] MEDS: chlordiazePOXIDE 5 MG CAPSULE PO SCH ×2 (06:20→10:21)
[2018-01-17] MEDS: PHENYTOIN NA EXTENDED 100 MG CAPSULE (FP) PO SCH ×3 (06:21→22:24)
[2018-01-17] MEDS ORDERED: PHENYTOIN NA EXTENDED 100 MG CAPSULE (FP) PO ONE (10:07)
--- NOTE | 2018-01-17 10:13 | PN ---
S Progress Note (SOAP) Subjective: alert,irritable,anxious,interrupted sleep,tremor,pain in the body and back Objective: 01/17/18 10:11 Vital Signs Temperature 98.1 F 01/17/18 09:14 Pulse Rate 83 01/17/18 09:14 Respiratory Rate 18 01/17/18 09:14 Blood Pressure 153/88 01/17/18 09:14 O2 Sat by Pulse Oximetry (%) Laboratory Last Values WBC 4.4 K/mm3 (4.0-10.0) D 01/15/18 06:00 RBC 4.03 M/mm3 (3.60-5.2) 01/15/18 06:00 Hgb 11.5 GM/dL (10.7-15.3) 01/15/18 06:00 Hct 35.6 % (32.4-45.2) 01/15/18 06:00 MCV 88.3 fl (80-96) 01/15/18 06:00 MCH 28.6 pg (25.7-33.7) 01/15/18 06:00 MCHC 32.4 g/dl (32.0-36.0) 01/15/18 06:00 RDW 14.8 % (11.6-15.6) 01/15/18 06:00 Plt Count 219 K/MM3 (134-434) D 01/15/18 06:00 MPV 9.1 fl (7.5-11.1) 01/15/18 06:00 Sodium 145 mmol/L (136-145) 01/15/18 06:00 Potassium 4.3 mmol/L (3.5-5.1) 01/15/18 06:00 Chloride 109 mmol/L (98-107) H 01/15/18 06:00 Carbon Dioxide 27 mmol/L (21-32) 01/15/18 06:00 Anion Gap 9 (8-16) 01/15/18 06:00 BUN 17 mg/dL (7-18) 01/15/18 06:00 Creatinine 0.8 mg/dL (0.55-1.02) 01/15/18 06:00 Creat Clearance w eGFR > 60 (>60) 01/15/18 06:00 Random Glucose 80 mg/dL (74-106) 01/15/18 06:00 Calcium 8.4 mg/dL (8.5-10.1) L 01/15/18 06:00 Total Bilirubin 0.2 mg/dL (0.2-1.0) D 01/15/18 06:00 AST 20 U/L (15-37) 01/15/18 06:00 ALT 21 U/L (12-78) 01/15/18 06:00 Alkaline Phosphatase 153 U/L (45-117) H 01/15/18 06:00 Total Protein 6.9 g/dl (6.4-8.2) 01/15/18 06:00 Albumin 3.1 g/dl (3.4-5.0) L 01/15/18 06:00 Urine Color Coleen 01/14/18 Unknown Urine Appearance Cloudy 01/14/18 Unknown Urine pH 6.0 (5.0-8.0) 01/14/18 Unknown Ur Specific [place] 1.030 (1.001-1.035) 01/14/18 Unknown Urine Protein 1+ (NEGATIVE) H 01/14/18 Unknown Urine Glucose (UA) Negative (NEGATIVE) 01/14/18 Unknown Urine Ketones Negative (NEGATIVE) 01/14/18 Unknown Urine Blood Negative (NEGATIVE) 01/14/18 Unknown Urine Nitrite Positive (NEGATIVE) 01/14/18 Unknown Urine Bilirubin Negative (<2.0 mg/dL) 01/14/18 Unknown Urine Urobilinogen 2.0 mg/dL (0.2-1.0) H 01/14/18 Unknown Ur Leukocyte Esterase Trace (NEGATIVE) 01/14/18 Unknown Urine WBC (Auto) 9 /hpf (3-5) 01/14/18 Unknown Urine RBC (Auto) 6 /hpf (0-3) 01/14/18 Unknown Ur Epithelial Cells Few /HPF (FEW) 01/14/18 Unknown Urine Bacteria Few /hpf (NONE SEEN) 01/14/18 Unknown Urine Mucus Many 01/14/18 Unknown Phenytoin < 2.5 ug/ml (10.0-20.0) L D 01/14/18 15:47 RPR Titer Nonreactive (NONREACTIVE) 01/15/18 06:00 Assessment: 01/17/18 10:12 withdrawal symptom Plan: continue detox,dilantin 300 mgs po now then tid,repeat dilantin in am
[2018-01-17] MEDS: METHADONE HCL 5 MG TABLET (FOR DETOX USE ONLY) PO SCH (10:20)
[2018-01-17] MEDS: PRENATAL VITAMINS W/ FOLIC ACID TABLET (FP) PO SCH (10:20)
[2018-01-17] MEDS: NICOTINE 14 MG/24 HOURS TOPICAL PATCH TD SCH (10:21)
[2018-01-17] MEDS: chlordiazePOXIDE HCL 10 MG CAPSULE PO SCH ×2 (17:47→22:24)
[2018-01-17] MEDS: THIAMINE HCL 100 MG TABLET (FP) PO SCH (22:24)
[2018-01-18] MEDS: chlordiazePOXIDE HCL 10 MG CAPSULE PO SCH ×2 (05:52→10:43)
[2018-01-18] MEDS: PHENYTOIN NA EXTENDED 100 MG CAPSULE (FP) PO SCH ×3 (05:52→22:35)
[2018-01-18] MEDS ORDERED: METHADONE HCL 10 MG TABLET (FOR DETOX USE ONLY) PO SCH (10:00)
[2018-01-18] MEDS: NICOTINE 14 MG/24 HOURS TOPICAL PATCH TD SCH (10:43)
[2018-01-18] MEDS: PRENATAL VITAMINS W/ FOLIC ACID TABLET (FP) PO SCH (10:43)
--- NOTE | 2018-01-18 12:07 | PN ---
S Progress Note (SOAP) Subjective: alert,irritable,anxious,interrupted sleep Objective: 01/18/18 12:06 Vital Signs Temperature 97.9 F 01/18/18 11:33 Pulse Rate 83 01/18/18 11:33 Respiratory Rate 16 01/18/18 11:33 Blood Pressure 141/75 01/18/18 11:33 O2 Sat by Pulse Oximetry (%) Laboratory Results - last 24 hr 01/18/18 07:30 Phenytoin 10.8 D Assessment: 01/18/18 12:06 withdrawal symptom Plan: continue detox,discharge in am
[2018-01-18] MEDS: THIAMINE HCL 100 MG TABLET (FP) PO SCH (22:35)
[2018-01-19] MEDS: PHENYTOIN NA EXTENDED 100 MG CAPSULE (FP) PO SCH (05:23)
[2018-01-19] MEDS ORDERED: METHADONE HCL 5 MG TABLET (FOR DETOX USE ONLY) PO SCH (06:00)
--- NOTE | 2018-01-19 10:00 | PN ---
S Progress Note (SOAP) Subjective: alert,no complaint Objective: 01/19/18 09:59 Vital Signs Temperature 97.7 F 01/19/18 06:45 Pulse Rate 75 01/19/18 06:45 Respiratory Rate 18 01/19/18 06:45 Blood Pressure 141/96 01/19/18 06:45 O2 Sat by Pulse Oximetry (%) Assessment: 01/19/18 09:59 detox completed,no withdrawal symptom Plan: discharge today,follow up with after care program as arrangement
--- NOTE | 2018-01-19 10:04 | DS ---
[facility] Detox Discharge Summary Admission Date: 01/14/18 Discharge Date: 01/19/18 - History Present History: Alcohol Dependence, Opioid Dependence Additional Comments: follow up with after care program as arrangement Pertinent Past History: nicotine dependence seizure disorder - Physical Exam Results Vital Signs: Vital Signs Temperature 97.7 F 01/19/18 06:45 Pulse Rate 75 01/19/18 06:45 Respiratory Rate 18 01/19/18 06:45 Blood Pressure 141/96 01/19/18 06:45 O2 Sat by Pulse Oximetry (%) Pertinent Admission Physical Exam Findings: withdrawal signs and symptom Vital Signs Temperature 97.7 F 01/19/18 06:45 Pulse Rate 75 01/19/18 06:45 Respiratory Rate 18 01/19/18 06:45 Blood Pressure 141/96 01/19/18 06:45 O2 Sat by Pulse Oximetry (%) Laboratory Last Values WBC 4.4 K/mm3 (4.0-10.0) D 01/15/18 06:00 RBC 4.03 M/mm3 (3.60-5.2) 01/15/18 06:00 Hgb 11.5 GM/dL (10.7-15.3) 01/15/18 06:00 Hct 35.6 % (32.4-45.2) 01/15/18 06:00 MCV 88.3 fl (80-96) 01/15/18 06:00 MCH 28.6 pg (25.7-33.7) 01/15/18 06:00 MCHC 32.4 g/dl (32.0-36.0) 01/15/18 06:00 RDW 14.8 % (11.6-15.6) 01/15/18 06:00 Plt Count 219 K/MM3 (134-434) D 01/15/18 06:00 MPV 9.1 fl (7.5-11.1) 01/15/18 06:00 Sodium 145 mmol/L (136-145) 01/15/18 06:00 Potassium 4.3 mmol/L (3.5-5.1) 01/15/18 06:00 Chloride 109 mmol/L (98-107) H 01/15/18 06:00 Carbon Dioxide 27 mmol/L (21-32) 01/15/18 06:00 Anion Gap 9 (8-16) 01/15/18 06:00 BUN 17 mg/dL (7-18) 01/15/18 06:00 Creatinine 0.8 mg/dL (0.55-1.02) 01/15/18 06:00 Creat Clearance w eGFR > 60 (>60) 01/15/18 06:00 Random Glucose 80 mg/dL (74-106) 01/15/18 06:00 Calcium 8.4 mg/dL (8.5-10.1) L 01/15/18 06:00 Total Bilirubin 0.2 mg/dL (0.2-1.0) D 01/15/18 06:00 AST 20 U/L (15-37) 01/15/18 06:00 ALT 21 U/L (12-78) 01/15/18 06:00 Alkaline Phosphatase 153 U/L (45-117) H 01/15/18 06:00 Total Protein 6.9 g/dl (6.4-8.2) 01/15/18 06:00 Albumin 3.1 g/dl (3.4-5.0) L 01/15/18 06:00 Urine Color [place] 01/14/18 Unknown Urine Appearance Cloudy 01/14/18 Unknown Urine pH 6.0 (5.0-8.0) 01/14/18 Unknown Ur Specific [place] 1.030 (1.001-1.035) 01/14/18 Unknown Urine Protein 1+ (NEGATIVE) H 01/14/18 Unknown Urine Glucose (UA) Negative (NEGATIVE) 01/14/18 Unknown Urine Ketones Negative (NEGATIVE) 01/14/18 Unknown Urine Blood Negative (NEGATIVE) 01/14/18 Unknown Urine Nitrite Positive (NEGATIVE) 01/14/18 Unknown Urine Bilirubin Negative (<2.0 mg/dL) 01/14/18 Unknown Urine Urobilinogen 2.0 mg/dL (0.2-1.0) H 01/14/18 Unknown Ur Leukocyte Esterase Trace (NEGATIVE) 01/14/18 Unknown Urine WBC (Auto) 9 /hpf (3-5) 01/14/18 Unknown Urine RBC (Auto) 6 /hpf (0-3) 01/14/18 Unknown Ur Epithelial Cells Few /HPF (FEW) 01/14/18 Unknown Urine Bacteria Few /hpf (NONE SEEN) 01/14/18 Unknown Urine Mucus Many 01/14/18 Unknown Phenytoin 10.8 ug/ml (10.0-20.0) D 01/18/18 07:30 RPR Titer Nonreactive (NONREACTIVE) 01/15/18 06:00 - Treatment Hospital Course: Detox Protocol Followed, Detoxed Safely, Responded well, Discharged Condition Good, Rehab Referral Accepted Patient has Accepted a Rehab Referral to: [facility] - Medication Discharge Medications: Ambulatory Orders Phenytoin Na Extended [Dilantin -] 100 mg PO TID #90 capsule 11/27/17 - Diagnosis (1) Opioid dependence with withdrawal Current Visit: Yes Status: Acute (2) Alcohol dependence with uncomplicated withdrawal Current Visit: Yes Status: Acute (3) Nicotine dependence Current Visit: Yes Status: Acute Qualifiers: Nicotine product type: cigarettes Substance use status: in withdrawal Qualified Code(s): F17.213 - Nicotine dependence, cigarettes, with withdrawal (4) Seizure disorder Current Visit: Yes Status: Chronic - AMA Did Patient Leave Against Medical Advice: No
[2018-01-19 10:24] VITALS: BP 135/80; PULSE 78; TEMP 97.2
[2018-01-19] MEDS: NICOTINE 14 MG/24 HOURS TOPICAL PATCH TD SCH (11:36)
[2018-01-19] MEDS: PRENATAL VITAMINS W/ FOLIC ACID TABLET (FP) PO SCH (11:36)
== END 2018-01-19 11:33 | disposition home or self-care (01) | DRG 773 ==
LOC: YASAS 11:39 → Y6N 15:39
PROVIDERS: ADMIT Surgery; ATTEND Surgery
PROC: HZ2ZZZZ Detoxification Services for Substance Abuse Treatment (ICD-10-PCS; principal; 2018-01-14)
DX: F11.23 Opioid dependence with withdrawal (principal); F10.230 Alcohol dependence with withdrawal, uncomplicated; F17.213 Nicotine dependence, cigarettes, with withdrawal; G40.909 Epilepsy, unspecified, not intractable, without status epilepticus; Z87.42 Personal history of other diseases of the female genital tract; Z86.79 Personal history of other diseases of the circulatory system
CPT/HCPCS: 36415; 80053; 80185; 81003; 81015; 85027; 86593; 93005; 93010

== ENCOUNTER 2018-07-22 10:49 | Inpatient (IN) | payer OTHER ==
[2018-07-22 11:23] VITALS: BMI 20.7
--- NOTE | 2018-07-22 13:33 | HP ---
CIWA Score - Admission Criteria OASAS Guidelines: Admission for Medically Managed Detox: Requires at least one of the followin. CIWA greater than 12 2. Seizures within the past 24 hours 3. Delirium tremens within the past 24 hours 4. Hallucinations within the past 24 hours 5. Acute intervention needed for co occurring medical disorder 6. Acute intervention needed for co occurring psychiatric disorder 7. Severe withdrawal that cannot be handled at a lower level of care (continued vomiting, continued diarrhea, abnormal vital signs) requiring intravenous medication and/or fluids 8. Admission ROS S - HPI Chief Complaint: I am here for rehab for further treatment. Allergies/Adverse Reactions: Allergies Allergy/AdvReac Type Severity Reaction Status Date / Time No Known Allergies Allergy Verified 07/22/18 12:30 History of Present Illness: pt is a 53yr old female with a history of alcohol, crack/cocaine dependence seeking rehab for treatment. Pt last detox was about 5months ago. Pt longest sobriety was 3yrs ago for about 9months. Exam Limitations: No Limitations - Ebola screening Have you traveled outside of the country in the last 21 days: No Have you had contact with anyone from an Ebola affected area: No Have you been sick,other than usual withdrawal symptoms: No Do you have a fever: No - Review of Systems Constitutional: No Symptoms Reported EENT: reports: Dental Problems (missing teeth.) Respiratory: reports: No Symptoms reported Cardiac: reports: No Symptoms Reported GI: reports: No Symptoms Reported : reports: No Symptoms Reported Musculoskeletal: reports: No Symptoms Reported Integumentary: reports: No Symptoms Reported Neuro: reports: Seizure (last seizure 7mo ago) Endocrine: reports: No Symptoms Reported Hematology: reports: No Symptoms Reported Psychiatric: reports: Judgement Intact, Mood/Affect Appropiate, Orientated x3, Anxious Other Systems: Reviewed and Negative Patient History - Patient Medical History Hx Anemia: No Hx Asthma: No Hx Chronic Obstructive Pulmonary Disease (COPD): No Hx Cancer: No Hx Cardiac Disorders: No Hx Congestive Heart Failure: No Hx Hypertension: No Hx Hypercholesterolemia: No Hx Pacemaker: No HX Cerebrovascular Accident: No Hx Seizures: Yes (r/t brain aneurysm-last episode was in 01/2018) Hx Dementia: No Hx Diabetes: No Hx Gastrointestinal Disorders: No Hx Liver Disease: No Hx Genitourinary Disorders: No Hx Sexually Transmitted Disorders: Yes (syphilis) Hx Renal Disease (ESRD): No Hx Thyroid Disease: No Hx Human Immunodeficiency Virus (HIV): No (negative) Hx Hepatitis C: Yes Hx Depression: Yes Hx Suicide Attempt: No (denies) Hx Bipolar Disorder: No Hx Schizophrenia: No - Patient Surgical History Past Surgical History: Yes Hx Neurologic Surgery: Yes (brain aneurysm in 1992) Hx Cataract Extraction: No Hx Cardiac Surgery: No Hx Lung Surgery: No Hx Breast Surgery: No Hx Breast Biopsy: No Hx Abdominal Surgery: No Hx Appendectomy: No Hx Cholecystectomy: No Hx Genitourinary Surgery: No Hx Section: No Hx Orthopedic Surgery: No Hx Hysterectomy: No Other Surgical History: DENIES. Anesthesia Reaction: No - PPD History Previous Implant?: Yes Documented Results: Negative w/proof Implanted On Prior [facility] Admission?: Yes Date: 11/25/17 Results: 0 mm PPD to be Administered?: No - Reproductive History Patient is a Female of Child Bearing Age (11 -55 yrs old): Yes Last Menstrual Period: 01/15/08 Patient : No - Smoking Cessation Smoking history: Current every day smoker Have you smoked in the past 12 months: Yes Aproximately how many cigarettes per day: 10 Cigars Per Day: 0 Hx Chewing Tobacco Use: No Initiated information on smoking cessation: Yes 'Breaking Loose' booklet given: 07/22/18 - Substance & Tx. History Hx Alcohol Use: Yes Hx Substance Use: Yes Substance Use Type: Alcohol, Cocaine Hx Substance Use Treatment: Yes (last detox [facility] 2017) - Substances Abused Crack Route: Smoking Frequency: Daily Amount used: $200 Age of first use: 25 Date of Last Use: 07/21/18 Alcohol-beer Route: Oral Frequency: 3-6 times per week Amount used: 7 (12 oz.) Age of first use: 3 Date of Last Use: 07/20/18 Family Disease History - Family Disease History Family Disease History: CA: Father (), Mother (), Other: Father , Mother, Brother (no contact), Sister (no contact) Admission Physical Exam [facility] - Vital Signs Vital Signs: Vital Signs - 24 hr 07/22/18 11:16 Temperature 96.0 F L Pulse Rate 73 Respiratory 17 Rate Blood Pressure 111/74 - Physical General Appearance: Yes: Within Normal Limits, Thin, Anxious HEENTM: Yes: Hearing grossly Normal, Normal Voice, Other (missing teeth) Respiratory: Yes: Lungs Clear, Normal Breath Sounds, No Respiratory Distress Neck: Yes: No masses,lesions,Nodules Breast: Yes: Within Normal Limits Cardiology: Yes: Regular Rhythm, Regular Rate, S1, S2 Abdominal: Yes: Normal Bowel Sounds, Non Tender, Flat Genitourinary: Yes: Within Normal Limits Back: Yes: Within Normal Limits Musculoskeletal: Yes: full range of Motion Extremities: Yes: Normal Capillary Refill, Normal Inspection, Tremors Neurological: Yes: Fully Oriented, Alert, Normal Response Integumentary: Yes: Normal Color Lymphatic: Yes: Within Normal Limits - Diagnostic (1) Cocaine dependence, uncomplicated Current Visit: Yes Status: Chronic (2) Nicotine dependence Current Visit: Yes Status: Chronic Qualifiers: Nicotine product type: cigarettes Substance use status: uncomplicated Qualified Code(s): F17.210 - Nicotine dependence, cigarettes, uncomplicated (3) Seizure disorder Current Visit: Yes Status: Chronic Comment: dilantin level pending (4) Methadone maintenance therapy patient Current Visit: Yes Status: Chronic Comment: dose verified with program last received today 07/22/18 with 110mg [facility] - Detox or Rehab [facility] Level of Care: Medically Managed Claeared for Rehab Admission: Yes [facility] Breath Alcohol Content Breath Alcohol Content: 0 Urine Drug Screen - Results Drug Screen Negative: No Urine Drug Screen Results: KANE-Cocaine, MTD-Methadone Inpatient Rehab Admission - Initial Determination Are CD services needed?: Yes Free of communicable disease: Yes Not in need of hospitalization: Yes - Rehab Admission Criteria Previous failed treatment: Yes Poor recovery environment: Yes Comorbidities: Yes Lacks judgement: Yes
[2018-07-22] MEDS ORDERED: MAG HYDROX/AL HYDROX/SIMETH 30 ML UNIT-DOSE CUP PO PRN (13:38)
[2018-07-22] MEDS ORDERED: guaiFENesin/D-METHORPHAN HB 10 ML UNIT-DOSE CUPS PO PRN (13:38)
[2018-07-22] MEDS ORDERED: P-EPHED 60MG/TRIPROLIDI 2.5MG TABLET PO PRN (13:38)
[2018-07-22] MEDS ORDERED: LOPERAMIDE HCL 2 MG CAPSULE PO PRN (13:38)
[2018-07-22] MEDS ORDERED: MENTHOL/PHENOL 1 EACH UD MM PRN (13:38)
[2018-07-22] MEDS ORDERED: IBUPROFEN 400 MG TABLET (FP) PO PRN (13:38)
[2018-07-22] MEDS ORDERED: ACETAMINOPHEN 325 MG TABLET (FP) PO PRN (13:38)
[2018-07-22] MEDS ORDERED: MAGNESIUM CITRATE 300 ML BOTTLE PO PRN (13:38)
[2018-07-22] MEDS ORDERED: MAGNESIUM HYDROX 2400MG/30ML ORAL SUSPENSION 30 ML CUP PO PRN (13:38)
[2018-07-22] MEDS ORDERED: hydrOXYzine PAMOATE 50 MG CAPSULE (FP) PO PRN (13:38)
[2018-07-22] MEDS ORDERED: NICOTINE POLACRILEX 4 MG GUM BUC PRN (13:38)
[2018-07-22 14:38] LABS: HEMATOCRIT 40.5 % (32.4-45.2); HEMOGLOBIN 12.8 GM/dL (10.7-15.3); MCH 28.1 pg (25.7-33.7); MCHC 31.5 g/dl (32.0-36.0); MEAN PLT VOLUME 9.1 fl (7.5-11.1); PLATELET COUNT 171 K/MM3 (134-434); RBC 4.55 M/mm3 (3.60-5.2); RDW 14.9 % (11.6-15.6); WHITE BLOOD COUNT 3.4 K/mm3 (4.0-10.0)
[2018-07-22 14:59] LABS: ALBUMIN 3.4 g/dl (3.4-5.0); ALK PHOS 194 U/L (45-117); ANION GAP 6 MMOL/L (8-16); BILIRUBIN,TOTAL 0.2 mg/dL (0.2-1); BLOOD UREA NITROGEN 17 mg/dL (7-18); CALCIUM 8.4 mg/dL (8.5-10.1); CHLORIDE 108 mmol/L (98-107); CO2 29 mmol/L (21-32); GLUCOSE,RANDOM 99 mg/dL (74-106); POTASSIUM 4.8 mmol/L (3.5-5.1); SGOT/AST 21 U/L (15-37); SGPT/ALT 29 U/L (13-61); SODIUM 142 mmol/L (136-145); TOT PROT 7.2 g/dl (6.4-8.2)
[2018-07-22] MEDS: PHENYTOIN NA EXTENDED 100 MG CAPSULE (FP) PO SCH ×2 (15:00→21:28)
--- NOTE | 2018-07-22 16:35 | HP ---
Psychiatrist Admission - Data Date of interview: 07/22/18 Admission source: [facility] Identifying data: This is the first inpatient rehasbilitation for this 53 years old AA single female mother of 38 yo daughter,undomiciled,supported by PA. Medical History: Significant for Seizure disorder,H/O Brain aneyrism. Psychiatric History: denies,no suicidal attempts,no psychiatric admissions reported. Physical/Sexual Abuse/Trauma History: denies Vital Signs: Vital Signs - 24 hr 07/22/18 07/22/18 11:16 15:19 Temperature 96.0 F L 97.6 F Pulse Rate 73 82 Respiratory 17 16 Rate Blood Pressure 111/74 101/64 Allergies/Adverse Reactions: Allergies Allergy/AdvReac Type Severity Reaction Status Date / Time No Known Allergies Allergy Verified 07/22/18 12:30 Date of last physical exam: 07/22/18 Concur with the findings of this exam: Yes - Substance Abuse/Tx History Hx Alcohol Use: No Hx Substance Use: Yes (cocaine since 25 yo,heroin since 12 yo,sniffing,8 bags daily,MMTP 110 mg) Substance Use Type: Cocaine, Heroin Hx Substance Use Treatment: Yes (never completed inpatient rehab treatment) Mental Status Exam - Mental Status Exam Alert and Oriented to: Time, Place, Person Cognitive Function: Grossly Intact Patient Appearance: Well Groomed Mood: Euthymic Affect: Mood Congruent Patient Behavior: Cooperative Speech Pattern: Clear Voice Loudness: Normal Thought Process: Goal Oriented Thought Disorder: Not Present Hallucinations: Denies Suicidal Ideation: Denies Homicidal Ideation: Denies Insight/Judgement: Fair Sleep: Fair Appetite: Good Muscle strength/Tone: Normal Gait/Station: Normal Psychiatric Findings - Problem List ([place] 1, 2,3) (1) Cocaine dependence, uncomplicated Current Visit: Yes Status: Chronic (2) Methadone maintenance therapy patient Current Visit: Yes Status: Chronic Comment: dose verified with program last received today 07/22/18 with 110mg with HANY Staples and HANY Renee at [facility] mmtp (3) Nicotine dependence Current Visit: Yes Status: Chronic Qualifiers: Nicotine product type: cigarettes Substance use status: uncomplicated Qualified Code(s): F17.210 - Nicotine dependence, cigarettes, uncomplicated (4) Seizure disorder Current Visit: Yes Status: Chronic Comment: dilantin level pending - Initial Treatment Plan Initial Treatment Plan: Will monitor progress.
[2018-07-22 17:16] LABS: URINE APPEARANCE CLOUDY; URINE BILIRUBIN NEGATIVE (<2.0 mg/dL); URINE COLOR YELLOW; URINE GLUCOSE (UA) NEGATIVE (NEGATIVE); URINE KETONE NEGATIVE (NEGATIVE); URINE LEUK ESTERASE 1+ (NEGATIVE); URINE NITRITE POSITIVE (NEGATIVE); URINE PROTEIN NEGATIVE (NEGATIVE); URINE UROBILINOGEN NEGATIVE mg/dL (0.2-1.0)
[2018-07-22 17:36] LABS: EPI CELLS RARE /HPF (FEW); URINE BACTERIA FEW /hpf (NONE SEEN); URINE HYALINE CAST 3 /lpf; URINE MUCUS FEW
[2018-07-22] MEDS: MELATONIN 5 MG TABLETS PO PRN (21:28)
[2018-07-22] MEDS: THIAMINE HCL 100 MG TABLET (FP) PO SCH (21:28)
[2018-07-23] MEDS ORDERED: METHADONE HCL 40 MG DISPERSABLE TABLET PO SCH (06:00)
[2018-07-23] MEDS ORDERED: METHADONE HCL 10 MG TABLET ONE (06:28)
[2018-07-23] MEDS ORDERED: METHADONE HCL 40 MG DISPERSABLE TABLET ONE (06:29)
[2018-07-23] MEDS: METHADONE 80 MG, METHADONE 30 MG PO SCH (06:44)
[2018-07-23] MEDS: PHENYTOIN NA EXTENDED 100 MG CAPSULE (FP) PO SCH ×3 (06:44→21:12)
[2018-07-23] MEDS: NICOTINE 21 MG/24 HOURS TOPICAL PATCH TD SCH (10:16)
[2018-07-23] MEDS: PRENATAL VITAMINS W/ FOLIC ACID TABLET (FP) PO SCH (10:16)
--- NOTE | 2018-07-23 13:03 | EKG ---
Test Reason : Blood Pressure : / mmHG Vent. Rate : 078 BPM Atrial Rate : 078 BPM P-R Int : 118 ms QRS Dur : 080 ms QT Int : 372 ms P-R-T Axes : 078 052 058 degrees QTc Int : 424 ms NORMAL SINUS RHYTHM NORMAL ECG WHEN COMPARED WITH ECG OF 15-JAN-2018 10:36, NO SIGNIFICANT CHANGE WAS FOUND Confirmed by Everett Borden ([id number]) on 07/23/2018 1:03:14 PM Referred By: Confirmed By:Everett Borden
[2018-07-23] MEDS ORDERED: PT OWN MED DRAWER 7, Y5N ONE (14:01)
[2018-07-23] MEDS: THIAMINE HCL 100 MG TABLET (FP) PO SCH (21:12)
[2018-07-23] MEDS: MELATONIN 5 MG TABLETS PO PRN (21:12)
[2018-07-24] MEDS ORDERED: METHADONE HCL 40 MG DISPERSABLE TABLET ONE (03:27)
[2018-07-24] MEDS ORDERED: METHADONE HCL 10 MG TABLET ONE (03:27)
[2018-07-24] MEDS: METHADONE 80 MG, METHADONE 30 MG PO SCH (06:16)
[2018-07-24] MEDS: PHENYTOIN NA EXTENDED 100 MG CAPSULE (FP) PO SCH ×3 (06:17→21:46)
[2018-07-24] MEDS: NICOTINE 21 MG/24 HOURS TOPICAL PATCH TD SCH (09:56)
[2018-07-24] MEDS: PRENATAL VITAMINS W/ FOLIC ACID TABLET (FP) PO SCH (09:56)
[2018-07-24] MEDS: THIAMINE HCL 100 MG TABLET (FP) PO SCH (21:46)
[2018-07-24] MEDS: MELATONIN 5 MG TABLETS PO PRN (21:46)
[2018-07-25] MEDS ORDERED: METHADONE HCL 10 MG TABLET ONE (03:26)
[2018-07-25] MEDS ORDERED: METHADONE HCL 40 MG DISPERSABLE TABLET ONE (03:26)
[2018-07-25] MEDS: METHADONE 80 MG, METHADONE 30 MG PO SCH (06:23)
[2018-07-25] MEDS: PHENYTOIN NA EXTENDED 100 MG CAPSULE (FP) PO SCH ×3 (06:24→21:23)
[2018-07-25] MEDS: NICOTINE 21 MG/24 HOURS TOPICAL PATCH TD SCH (09:53)
[2018-07-25] MEDS: PRENATAL VITAMINS W/ FOLIC ACID TABLET (FP) PO SCH (09:53)
[2018-07-25] MEDS: THIAMINE HCL 100 MG TABLET (FP) PO SCH (21:23)
[2018-07-26] MEDS ORDERED: METHADONE HCL 10 MG TABLET ONE (06:00)
[2018-07-26] MEDS ORDERED: METHADONE HCL 40 MG DISPERSABLE TABLET ONE (06:01)
[2018-07-26] MEDS: PHENYTOIN NA EXTENDED 100 MG CAPSULE (FP) PO SCH ×3 (06:15→21:37)
[2018-07-26] MEDS: METHADONE 80 MG, METHADONE 30 MG PO SCH (06:15)
[2018-07-26] MEDS: NICOTINE 21 MG/24 HOURS TOPICAL PATCH TD SCH (10:04)
[2018-07-26] MEDS: PRENATAL VITAMINS W/ FOLIC ACID TABLET (FP) PO SCH (10:04)
[2018-07-26] MEDS: THIAMINE HCL 100 MG TABLET (FP) PO SCH (21:37)
[2018-07-27] MEDS ORDERED: METHADONE HCL 40 MG DISPERSABLE TABLET ONE (03:26)
[2018-07-27] MEDS ORDERED: METHADONE HCL 10 MG TABLET ONE (03:26)
[2018-07-27] MEDS: METHADONE 80 MG, METHADONE 30 MG PO SCH (06:32)
[2018-07-27] MEDS: PHENYTOIN NA EXTENDED 100 MG CAPSULE (FP) PO SCH ×3 (06:34→21:16)
[2018-07-27] MEDS: NICOTINE 21 MG/24 HOURS TOPICAL PATCH TD SCH (09:54)
[2018-07-27] MEDS: PRENATAL VITAMINS W/ FOLIC ACID TABLET (FP) PO SCH (09:54)
[2018-07-27] MEDS: THIAMINE HCL 100 MG TABLET (FP) PO SCH (21:16)
[2018-07-27] MEDS: MELATONIN 5 MG TABLETS PO PRN (21:16)
[2018-07-28] MEDS ORDERED: METHADONE HCL 40 MG DISPERSABLE TABLET ONE (02:55)
[2018-07-28] MEDS ORDERED: METHADONE HCL 10 MG TABLET ONE (02:55)
[2018-07-28] MEDS: PHENYTOIN NA EXTENDED 100 MG CAPSULE (FP) PO SCH ×3 (06:27→21:13)
[2018-07-28] MEDS: METHADONE 80 MG, METHADONE 30 MG PO SCH (06:28)
[2018-07-28] MEDS: PRENATAL VITAMINS W/ FOLIC ACID TABLET (FP) PO SCH (10:02)
[2018-07-28] MEDS: NICOTINE 21 MG/24 HOURS TOPICAL PATCH TD SCH (10:02)
[2018-07-28] MEDS: MELATONIN 5 MG TABLETS PO PRN (21:13)
[2018-07-28] MEDS: THIAMINE HCL 100 MG TABLET (FP) PO SCH (21:13)
[2018-07-29] MEDS ORDERED: METHADONE HCL 10 MG TABLET PO SCH (06:00)
[2018-07-29] MEDS ORDERED: METHADONE HCL 40 MG DISPERSABLE TABLET ONE (06:13)
[2018-07-29] MEDS ORDERED: METHADONE HCL 10 MG TABLET ONE (06:13)
[2018-07-29] MEDS: METHADONE 80 MG, METHADONE 30 MG PO SCH (06:14)
[2018-07-29] MEDS: PHENYTOIN NA EXTENDED 100 MG CAPSULE (FP) PO SCH ×3 (06:14→21:05)
[2018-07-29 07:01] VITALS: TEMP 97.3
[2018-07-29] MEDS: PRENATAL VITAMINS W/ FOLIC ACID TABLET (FP) PO SCH (09:53)
[2018-07-29] MEDS: NICOTINE 21 MG/24 HOURS TOPICAL PATCH TD SCH (09:53)
[2018-07-29] MEDS: THIAMINE HCL 100 MG TABLET (FP) PO SCH (21:05)
[2018-07-29] MEDS: MELATONIN 5 MG TABLETS PO PRN (21:06)
[2018-07-30] MEDS ORDERED: METHADONE HCL 40 MG DISPERSABLE TABLET ONE (05:59)
[2018-07-30] MEDS ORDERED: METHADONE HCL 10 MG TABLET ONE (05:59)
[2018-07-30] MEDS: PHENYTOIN NA EXTENDED 100 MG CAPSULE (FP) PO SCH (06:23)
[2018-07-30] MEDS: METHADONE 80 MG, METHADONE 30 MG PO SCH (06:23)
[2018-07-30 07:24] VITALS: BP 132/75; PULSE 61
[2018-07-30] MEDS: NICOTINE 21 MG/24 HOURS TOPICAL PATCH TD SCH (10:26)
[2018-07-30] MEDS: PRENATAL VITAMINS W/ FOLIC ACID TABLET (FP) PO SCH (10:26)
--- NOTE | 2018-07-30 11:06 | PN ---
[facility] Progress Note Note: Patient completed this program today.She has met her treatment goals and will continue to address her issues on ouaptient basis.patient is stable for discharge today.
--- NOTE | 2018-07-30 11:24 | PN ---
[facility] Progress Note Note: Pt was discharged. WAs in stable condition Vital Signs Temperature 97.3 F L 07/30/18 07:23 Pulse Rate 61 07/30/18 07:23 Respiratory Rate 18 07/30/18 07:23 Blood Pressure 132/75 07/30/18 07:23 O2 Sat by Pulse Oximetry (%) She will do aftercare by attending her [facility] methadone program and outpatient meetings. Pt will also follow up with her PCP Dr Palafox at the clinic on [address] [place], [place] Narcan and Dilantin was sent to [place] [facility] and pt verbalized knowing to go pick them up on her way out. Pt was accompanied off the unit by printing assistant
== END 2018-07-30 10:43 | disposition home or self-care (01) | DRG 772 ==
LOC: YASAS 10:49 → Y3E 13:59
PROVIDERS: ADMIT Psychiatry & Neurology Psychiatry; ATTEND Psychiatry & Neurology Psychiatry
PROC: HZ42ZZZ Group Counseling for Substance Abuse Treatment, Cognitive-Behavioral (ICD-10-PCS; principal; 2018-07-22)
DX: F14.20 Cocaine dependence, uncomplicated (principal); F11.20 Opioid dependence, uncomplicated; F17.210 Nicotine dependence, cigarettes, uncomplicated; G40.909 Epilepsy, unspecified, not intractable, without status epilepticus; Z86.79 Personal history of other diseases of the circulatory system; Z87.42 Personal history of other diseases of the female genital tract
CPT/HCPCS: 36415; 80053; 81003; 81015; 85027; 86593; 87389; 93005; 93010

== ENCOUNTER 2018-10-18 12:06 | Inpatient (IN) | payer OTHER ==
[2018-10-18 14:33] VITALS: BMI 25.1
--- NOTE | 2018-10-18 15:02 | HP ---
CIWA Score Nausea/Vomitin Muscle Tremors: 2 Anxiety: 2 Agitation: 2 Paroxysmal Sweats: 1-Minimal Palms Moist Orientation: 0-Oriented Tacttile Disturbances: 1-Very Mild Itch/Numbness Auditory Disturbances: 1-Very Mild Visual Disturbances: 0-None Headache: 2-Mild CIWA-Ar Total Score: 13 - Admission Criteria OASAS Guidelines: Admission for Medically Managed Detox: Requires at least one of the followin. CIWA greater than 12 2. Seizures within the past 24 hours 3. Delirium tremens within the past 24 hours 4. Hallucinations within the past 24 hours 5. Acute intervention needed for co occurring medical disorder 6. Acute intervention needed for co occurring psychiatric disorder 7. Severe withdrawal that cannot be handled at a lower level of care (continued vomiting, continued diarrhea, abnormal vital signs) requiring intravenous medication and/or fluids 8. Admission ROS [facility] - [facility] Chief Complaint: this 53 years old female with alcohol,crack dependence seeking detox,withdrawal symptom, multiple admissions in detox,last [facility] in 08/31 mmtp 120 mgs/day,last medicate today weight loss nicotine dependence seizure last 8 months ago s/p surgery of aneurysm hepatitis c treated no significant period of sobriety Allergies/Adverse Reactions: Allergies Allergy/AdvReac Type Severity Reaction Status Date / Time No Known Allergies Allergy Verified 07/22/18 12:30 History of Present Illness: this 53 years old female with alcohol,cocaine dependence,heroin abused on mmtp 120 mgs/day,last medicated today plese see chief complaint - Ebola screening Have you traveled outside of the country in the last 21 days: No Have you had contact with anyone from an Ebola affected area: No Have you been sick,other than usual withdrawal symptoms: No Do you have a fever: No - Review of Systems Constitutional: Loss of Appetite, Malaise, Night Sweats, Changes in sleep, Unintentional Wgt. Loss EENT: reports: Tearing, Nose Congestion Respiratory: reports: No Symptoms reported Cardiac: reports: No Symptoms Reported GI: reports: Nausea, Poor Appetite, Vomiting, Abdominal cramping : reports: No Symptoms Reported Musculoskeletal: reports: Back Pain, Muscle Pain Integumentary: reports: Dryness Neuro: reports: Headache, Tremors Endocrine: reports: No Symptoms Reported Hematology: reports: No Symptoms Reported Psychiatric: reports: No Sypmtoms Reported, Judgement Intact, Mood/Affect Appropiate, Orientated x3, Depressed (history of drug overdose [place]) Other Systems: Reviewed and Negative Patient History - Patient Medical History Hx Anemia: No Hx Asthma: No Hx Chronic Obstructive Pulmonary Disease (COPD): No Hx Cancer: No Hx Cardiac Disorders: No Hx Congestive Heart Failure: No Hx Hypertension: No Hx Hypercholesterolemia: No Hx Pacemaker: No HX Cerebrovascular Accident: No Hx Seizures: Yes (r/t brain aneurysm-last episode was in 01/2018) Hx Dementia: No Hx Diabetes: No Hx Gastrointestinal Disorders: No Hx Liver Disease: No Hx Genitourinary Disorders: No Hx Sexually Transmitted Disorders: Yes (syphilis) Hx Renal Disease (ESRD): No Hx Thyroid Disease: No Hx Human Immunodeficiency Virus (HIV): No (08/31 last negative) Hx Hepatitis C: Yes Hx Depression: Yes Hx Suicide Attempt: Yes (overdose) Hx Bipolar Disorder: No Hx Schizophrenia: No Other Medical History: no suicidal,no homicidal - Patient Surgical History Past Surgical History: Yes Hx Neurologic Surgery: Yes (brain aneurysm in 1992 left) Hx Cataract Extraction: No Hx Cardiac Surgery: No Hx Lung Surgery: No Hx Breast Surgery: No Hx Breast Biopsy: No Hx Abdominal Surgery: No Hx Appendectomy: No Hx Cholecystectomy: No Hx Genitourinary Surgery: No Hx Section: No Hx Orthopedic Surgery: No Hx Hysterectomy: No Other Surgical History: DENIES. Anesthesia Reaction: No - PPD History Previous Implant?: Yes Documented Results: Negative w/proof Implanted On Prior [facility] Admission?: Yes Date: 11/25/17 Results: 0 mm PPD to be Administered?: No - Reproductive History Patient is a Female of Child Bearing Age (11 -55 yrs old): Yes Last Menstrual Period: 01/15/08 Patient : No - Smoking Cessation Smoking history: Current every day smoker Have you smoked in the past 12 months: Yes Aproximately how many cigarettes per day: 20 Cigars Per Day: 0 Hx Chewing Tobacco Use: No Initiated information on smoking cessation: Yes 'Breaking Loose' booklet given: 10/18/18 - Substance & Tx. History Hx Alcohol Use: Yes Hx Substance Use: Yes Substance Use Type: Alcohol, Cocaine, Heroin Hx Substance Use Treatment: Yes (alexa sanchez 08/31) - Substances Abused Alcohol Route: Oral Frequency: Daily Amount used: 2 pints vodka Age of first use: 12 Date of Last Use: 10/18/18 Crack Route: Smoking Frequency: Daily Amount used: $300 Age of first use: 25 Date of Last Use: 10/17/18 Heroin Route: Inhalation Frequency: Daily Amount used: 7-8 bags Age of first use: 12 Date of Last Use: 10/17/18 Family Disease History - Family Disease History Family Disease History: CA: Father (), Mother (), Other: Father , Mother, Brother (no contact), Sister (no contact) Admission Physical Exam [facility] - Vital Signs Vital Signs: Vital Signs - 24 hr 10/18/18 14:31 Temperature 96.0 F L Pulse Rate 70 Respiratory 18 Rate Blood Pressure 88/63 L - Physical General Appearance: Yes: Moderate Distress, Tremorous, Irritable, Sweating, Anxious HEENTM: Yes: Normal ENT Inspection, JANNETTE, Pharynx Normal, Other (no teeth upper no denture s/p surgery for brain aneurysm left) Respiratory: Yes: Lungs Clear, Normal Breath Sounds, No Respiratory Distress Neck: Yes: Within Normal Limits, Supple, Trachea in good position Breast: Yes: Breast Exam Deferred Cardiology: Yes: Within Normal Limits, Regular Rhythm, Regular Rate, S1, S2 Abdominal: Yes: Within Normal Limits, Normal Bowel Sounds, Non Tender, Soft Genitourinary: Yes: Within Normal Limits Back: Yes: Muscle Spasm Musculoskeletal: Yes: full range of Motion, Back pain, Muscle Pain Extremities: Yes: Normal Range of Motion, Tremors Neurological: Yes: dope mixer II-XII NML intact, Fully Oriented, Alert, Motor Strength 5/5 Integumentary: Yes: Dry Lymphatic: Yes: Within Normal Limits - Diagnostic (1) Alcohol dependence with uncomplicated withdrawal Current Visit: Yes Status: Acute (2) Cocaine dependence, uncomplicated Current Visit: No Status: Chronic (3) Methadone maintenance therapy patient Current Visit: No Status: Chronic Comment: dose verified with program last received today 07/22/18 with 110mg with HANY Staples and HANY Renee at [facility] (4) Nicotine dependence Current Visit: Yes Status: Chronic Qualifiers: Nicotine product type: cigarettes Substance use status: uncomplicated Qualified Code(s): F17.210 - Nicotine dependence, cigarettes, uncomplicated (5) Seizure disorder Current Visit: No Status: Chronic Comment: dilantin level pending (6) Heroin abuse Current Visit: Yes Status: Acute (7) No natural teeth Current Visit: Yes Status: Acute (8) Brain aneurysm Current Visit: Yes Status: Acute (9) Weight loss Current Visit: Yes Status: Acute (10) Depression Current Visit: Yes Status: Acute (11) History of suicidal ideation Current Visit: Yes Status: Acute (12) Hepatitis C Current Visit: Yes Status: Acute Cleared for Admission [facility] - Detox or Rehab [facility] Level of Care: Medically Managed Detox Regimen/Protocol: Valium S Breath Alcohol Content Breath Alcohol Content: 0 Urine Pregancy Test - Result Urine Test Results: Negative - NO Line Present Urine Drug Screen - Results Drug Screen Negative: No Urine Drug Screen Results: KANE-Cocaine, BZO-Benzodiazepines, MTD-Methadone Inpatient Rehab Admission - Rehab Decision to Admit Inpatient rehab admission?: No
[2018-10-18] MEDS ORDERED: IBUPROFEN 400 MG TABLET (FP) PO PRN (15:20)
[2018-10-18] MEDS ORDERED: MENTHOL/PHENOL 1 EACH UD MM PRN (15:20)
[2018-10-18] MEDS ORDERED: MAG HYDROX/AL HYDROX/SIMETH 30 ML UNIT-DOSE CUP PO PRN (15:20)
[2018-10-18] MEDS ORDERED: MAGNESIUM HYDROX 2400MG/30ML ORAL SUSPENSION 30 ML CUP PO PRN (15:20)
[2018-10-18] MEDS ORDERED: METHOCARBAMOL 500 MG TABLET PO PRN (15:20)
[2018-10-18] MEDS ORDERED: MAGNESIUM CITRATE 300 ML BOTTLE PO PRN (15:20)
[2018-10-18] MEDS ORDERED: BISMUTH SUBSALICYLATE 262 MG/15 ML BTL PO PRN (15:20)
[2018-10-18] MEDS ORDERED: ACETAMINOPHEN 325 MG TABLET (FP) PO PRN ×2 (15:20)
[2018-10-18] MEDS ORDERED: hydrOXYzine PAMOATE 25 MG CAPSULE (FP) PO PRN (15:20)
[2018-10-18] MEDS: diazePAM 5 MG TABLET PO PRN (17:50)
[2018-10-18] MEDS: diazePAM 5 MG TABLET PO SCH (22:57)
[2018-10-18] MEDS: THIAMINE HCL 100 MG TABLET (FP) PO SCH (22:57)
[2018-10-19] MEDS: diazePAM 5 MG TABLET PO SCH ×3 (06:22→22:17)
[2018-10-19] MEDS: METHADONE HCL 40 MG DISPERSABLE TABLET PO SCH (07:58)
[2018-10-19] MEDS: diazePAM 5 MG TABLET PO PRN (07:59)
[2018-10-19 10:11] LABS: HEMATOCRIT 39.2 % (32.4-45.2); MCH 30.2 pg (25.7-33.7); MCHC 33.2 g/dl (32.0-36.0); MEAN CELL VOLUME 90.9 fl (80-96); PLATELET COUNT 165 K/MM3 (134-434); RBC 4.32 M/mm3 (3.60-5.2); RDW 14.7 % (11.6-15.6); WHITE BLOOD COUNT 2.6 K/mm3 (4.0-10.0)
[2018-10-19] MEDS: PHENYTOIN NA EXTENDED 100 MG CAPSULE (FP) PO SCH (10:26)
[2018-10-19] MEDS: PRENATAL VITAMINS W/ FOLIC ACID TABLET (FP) PO SCH (10:26)
[2018-10-19 10:36] LABS: ALBUMIN 3.1 g/dl (3.4-5.0); ALK PHOS 173 U/L (45-117); ANION GAP 4 MMOL/L (8-16); BILIRUBIN,TOTAL 0.1 mg/dL (0.2-1); BLOOD UREA NITROGEN 19 mg/dL (7-18); CALCIUM 8.5 mg/dL (8.5-10.1); CHLORIDE 108 mmol/L (98-107); CO2 31 mmol/L (21-32); CREATININE 0.8 mg/dL (0.55-1.3); GLUCOSE,RANDOM 74 mg/dL (74-106); POTASSIUM 4.4 mmol/L (3.5-5.1); SGOT/AST 16 U/L (15-37); SGPT/ALT 34 U/L (13-61); SODIUM 143 mmol/L (136-145); TOT PROT 6.6 g/dl (6.4-8.2)
--- NOTE | 2018-10-19 15:25 | PN ---
[facility] CIWA - CIWA Score Nausea/Vomitin-No Nausea/No Vomiting Muscle Tremors: 3 Anxiety: 3 Agitation: 1-Slight > Activity Paroxysmal Sweats: 3 Orientation: 0-Oriented Tacttile Disturbances: 2-Mild Itch/Numbness/Burn Auditory Disturbances: 0-None Visual Disturbances: 1-Very Mild Sensitivity Headache: 0-None Present CIWA-Ar Total Score: 13 B[facility] Progress Note (SOAP) Subjective: Tremors, Anxious, Sweating. Objective: PATIENT A & O X 3, OBSERVED AMBULATING ON UNIT. IN NO ACUTE DISTRESS. 10/19/18 15:22 Vital Signs Temperature 96.7 F L 10/19/18 13:57 Pulse Rate 69 10/19/18 13:57 Respiratory Rate 18 10/19/18 13:57 Blood Pressure 93/62 10/19/18 13:57 O2 Sat by Pulse Oximetry (%) Laboratory Tests 10/19/18 10/19/18 10/19/18 07:40 07:40 07:40 WBC 2.6 L RBC 4.32 Hgb 13.0 Hct 39.2 MCV 90.9 MCH 30.2 MCHC 33.2 RDW 14.7 Plt Count 165 MPV 9.0 Sodium 143 Potassium 4.4 Chloride 108 H Carbon Dioxide 31 Anion Gap 4 L BUN 19 H Creatinine 0.8 Creat Clearance w eGFR > 60 Random Glucose 74 Calcium 8.5 Total Bilirubin 0.1 L AST 16 ALT 34 Alkaline Phosphatase 173 H Total Protein 6.6 Albumin 3.1 L Phenytoin 4.5 L LABS NOTED. Assessment: 10/19/18 15:23 WITHDRAWAL SYMPTOMS. Plan: CONTINUE DETOX. INCREASE DAILY PO FLUID INTAKE. X 1 DOSE OF DILATNIN ER (300 MG PO) ORDERED DUE TO LOW ADMISSION DILANTIN LEVEL.
[2018-10-19] MEDS ORDERED: PHENYTOIN NA EXTENDED 100 MG CAPSULE (FP) PO ONE (15:45)
--- NOTE | 2018-10-19 20:03 | CONSULT ---
[facility] Psychiatric Consult - Data Date of interview: 10/19/18 Admission source: [facility] Identifying data: Readmission to [facility] for this 53 y/o AA female self- referred for detoxification (heroin, cannabis, alcohol). Interviewed at [address] [place] [address]. Patient is single, a mother of one, homeless, unemployed and supported on food stamps. Substance Abuse History: Conformed by patient in this interview. Details in current [facility] report as follows : Smoking history: Current every day smoker. Have you smoked in the past 12 months: Yes. Aproximately how many cigarettes per day: 20. Cigars Per Day: 0. Hx Chewing Tobacco Use: No. Initiated information on smoking cessation: Yes. 'Breaking Loose' booklet given: . - Substance & Tx. History. Hx Alcohol Use: Yes. Hx Substance Use: Yes. Substance Use Type: Alcohol, Cocaine, Heroin. Hx Substance Use Treatment: Yes ( alexa sanchez 08/31). - Substances Abused. Alcohol. Route: Oral. Frequency : Daily. Amount used: 2 pints vodka. Age of first use: 12. Date of Last Use: 10/18/18. Crack. Route: Smoking. Frequency: Daily. Amount used: $300. Age of first use: 25. Date of Last Use: 10/17/18. Heroin. Route: Inhalation. Frequency: Daily. Amount used: 7-8 bags. Age of first use: 12. Date of Last Use: 10/17/18 Medical History: Remarkable for a history of seizure disorder, hepatitis C and neurosurgery for left brain aneurysm (01/2018). Psychiatric History: Patient denies history of psychiatric hospitalizations. Endorses brief history of OPD care for MDD. Treated in the past with sertraline. Lost to follow-up. Ms Chirinos denies history of suicide attempts. On methadone maintenance (120 mg/day). Physical/Sexual Abuse/Trauma History: Patient denies. Additional Comment: Urine Drug Screen Results: KANE-Cocaine, BZO-Benzodiazepines , MTD-Methadone. Noted. Mental Status Exam - Mental Status Exam Alert and Oriented to: Time, Place, Person Cognitive Function: Good Patient Appearance: Well Groomed Mood: Withdrawn Affect: Mood Congruent, Constricted Patient Behavior: Fatigued, Cooperative Speech Pattern: Clear Voice Loudness: Normal Thought Process: Goal Oriented Thought Disorder: Not Present Hallucinations: Denies Suicidal Ideation: Denies Homicidal Ideation: Denies Insight/Judgement: Poor Sleep: Well Appetite: Fair Gait/Station: Other (not observed. In bed for entire interview.) Psychiatric Findings - Problem List ([place] 1, 2,3) (1) Alcohol dependence with uncomplicated withdrawal Current Visit: Yes Status: Acute (2) Nicotine dependence Current Visit: Yes Status: Chronic Qualifiers: Nicotine product type: cigarettes Substance use status: uncomplicated Qualified Code(s): F17.210 - Nicotine dependence, cigarettes, uncomplicated
[2018-10-19] MEDS: MELATONIN 5 MG TABLETS PO PRN (22:18)
[2018-10-19] MEDS: THIAMINE HCL 100 MG TABLET (FP) PO SCH (22:18)
[2018-10-19 23:03] LABS: URINE APPEARANCE SLCLOUDY; URINE BILIRUBIN NEGATIVE (<2.0 mg/dL); URINE COLOR YELLOW; URINE GLUCOSE (UA) NEGATIVE (NEGATIVE); URINE KETONE NEGATIVE (NEGATIVE); URINE LEUK ESTERASE 3+ (NEGATIVE); URINE NITRITE POSITIVE (NEGATIVE); URINE PROTEIN NEGATIVE (NEGATIVE); URINE UROBILINOGEN NEGATIVE mg/dL (0.2-1.0)
[2018-10-19 23:15] LABS: EPI CELLS RARE /HPF (FEW); URINE BACTERIA MANY /hpf (NONE SEEN); URINE MUCUS FEW
[2018-10-20] MEDS: METHADONE HCL 40 MG DISPERSABLE TABLET PO SCH (05:54)
--- NOTE | 2018-10-20 10:41 | PN ---
S CIWA - CIWA Score Nausea/Vomitin-No Nausea/No Vomiting Muscle Tremors: 2 Anxiety: 1-Mildly Anxious Agitation: 2 Paroxysmal Sweats: 1-Minimal Palms Moist Orientation: 0-Oriented Tacttile Disturbances: 0-None Auditory Disturbances: 0-None Visual Disturbances: 0-None Headache: 2-Mild CIWA-Ar Total Score: 8 S Progress Note (SOAP) Subjective: feeling better today less tremor mild sweating sleep better at night patient has seizure treated with 300 mg dilantine daily admits none adherence patient had 4.7 serum level of dilantin patient preferred return to methadone treatment program for dilantin monitoring Objective: 10/20/18 10:37 Vital Signs Temperature 97.2 F L 10/20/18 09:38 Pulse Rate 69 10/20/18 09:38 Respiratory Rate 18 10/20/18 09:38 Blood Pressure 84/50 L 10/20/18 09:38 O2 Sat by Pulse Oximetry (%) Laboratory Last Values WBC 2.6 K/mm3 (4.0-10.0) L 10/19/18 07:40 RBC 4.32 M/mm3 (3.60-5.2) 10/19/18 07:40 Hgb 13.0 GM/dL (10.7-15.3) 10/19/18 07:40 Hct 39.2 % (32.4-45.2) 10/19/18 07:40 MCV 90.9 fl (80-96) 10/19/18 07:40 MCH 30.2 pg (25.7-33.7) 10/19/18 07:40 MCHC 33.2 g/dl (32.0-36.0) 10/19/18 07:40 RDW 14.7 % (11.6-15.6) 10/19/18 07:40 Plt Count 165 K/MM3 (134-434) 10/19/18 07:40 MPV 9.0 fl (7.5-11.1) 10/19/18 07:40 Sodium 143 mmol/L (136-145) 10/19/18 07:40 Potassium 4.4 mmol/L (3.5-5.1) 10/19/18 07:40 Chloride 108 mmol/L (98-107) H 10/19/18 07:40 Carbon Dioxide 31 mmol/L (21-32) 10/19/18 07:40 Anion Gap 4 MMOL/L (8-16) L 10/19/18 07:40 BUN 19 mg/dL (7-18) H 10/19/18 07:40 Creatinine 0.8 mg/dL (0.55-1.3) 10/19/18 07:40 Creat Clearance w eGFR > 60 (>60) 10/19/18 07:40 Random Glucose 74 mg/dL (74-106) 10/19/18 07:40 Calcium 8.5 mg/dL (8.5-10.1) 10/19/18 07:40 Total Bilirubin 0.1 mg/dL (0.2-1) L 10/19/18 07:40 AST 16 U/L (15-37) 10/19/18 07:40 ALT 34 U/L (13-61) 10/19/18 07:40 Alkaline Phosphatase 173 U/L (45-117) H 10/19/18 07:40 Total Protein 6.6 g/dl (6.4-8.2) 10/19/18 07:40 Albumin 3.1 g/dl (3.4-5.0) L 10/19/18 07:40 Urine Color Yellow 10/19/18 18:19 Urine Appearance Slcloudy 10/19/18 18:19 Urine pH 5.0 (5.0-8.0) 10/19/18 18:19 Ur Specific [place] 1.025 (1.010-1.035) 10/19/18 18:19 Urine Protein Negative (NEGATIVE) 10/19/18 18:19 Urine Glucose (UA) Negative (NEGATIVE) 10/19/18 18:19 Urine Ketones Negative (NEGATIVE) 10/19/18 18: Urine Blood Negative (NEGATIVE) 10/19/18 18: Urine Nitrite Positive (NEGATIVE) 10/19/18 18: Urine Bilirubin Negative (<2.0 mg/dL) 10/19/18 18: Urine Urobilinogen Negative mg/dL (0.2-1.0) 10/19/18 18:19 Ur Leukocyte Esterase 3+ (NEGATIVE) H D 10/19/18 18:19 Urine WBC (Auto) 37 /hpf (3-5) 03/09/19 18:19 Urine RBC (Auto) 3 /hpf (0-3) 10/19/18 18:19 Ur Epithelial Cells Rare /HPF (FEW) 10/19/18 18:19 Urine Bacteria Many /hpf (NONE SEEN) 10/19/18 18:19 Urine Mucus Few 10/19/18 18:19 Phenytoin 4.5 ug/ml (10.0-20.0) L 10/19/18 07:40 lab noted Assessment: 10/20/18 10:51 mild alcohol withdrawal sx 10/20/18 10:51 Plan: continue detox
[2018-10-20] MEDS: PRENATAL VITAMINS W/ FOLIC ACID TABLET (FP) PO SCH (10:49)
[2018-10-20] MEDS: PHENYTOIN NA EXTENDED 100 MG CAPSULE (FP) PO SCH (10:49)
[2018-10-20] MEDS: diazePAM 5 MG TABLET PO SCH ×2 (10:49→22:00)
[2018-10-20] MEDS: THIAMINE HCL 100 MG TABLET (FP) PO SCH (22:00)
[2018-10-20] MEDS: MELATONIN 5 MG TABLETS PO PRN (22:01)
[2018-10-21] MEDS: METHADONE HCL 40 MG DISPERSABLE TABLET PO SCH (05:21)
[2018-10-21] MEDS ORDERED: diazePAM 5 MG TABLET PO SCH (06:00)
[2018-10-21 09:37] VITALS: TEMP 96.8
[2018-10-21] MEDS: PHENYTOIN NA EXTENDED 100 MG CAPSULE (FP) PO SCH (10:19)
[2018-10-21] MEDS: PRENATAL VITAMINS W/ FOLIC ACID TABLET (FP) PO SCH (10:19)
--- NOTE | 2018-10-21 12:50 | DS ---
[facility] Detox Discharge Summary Admission Date: 10/18/18 Discharge Date: 10/21/18 - History Present History: Alcohol Dependence Additional Comments: 53 years old female admitted on for alcohol withdrawal stabilization completed detox regimen aftercare [facility] - Physical Exam Results Vital Signs: Vital Signs Temperature 96.8 F L 10/21/18 09:34 Pulse Rate 69 10/21/18 09:34 Respiratory Rate 18 10/21/18 09:34 Blood Pressure 93/59 L 10/21/18 09:34 O2 Sat by Pulse Oximetry (%) Pertinent Admission Physical Exam Findings: opiate withdrawal sx Laboratory Last Values WBC 2.6 K/mm3 (4.0-10.0) L 10/19/18 07:40 RBC 4.32 M/mm3 (3.60-5.2) 10/19/18 07:40 Hgb 13.0 GM/dL (10.7-15.3) 10/19/18 07:40 Hct 39.2 % (32.4-45.2) 10/19/18 07:40 MCV 90.9 fl (80-96) 10/19/18 07:40 MCH 30.2 pg (25.7-33.7) 10/19/18 07:40 MCHC 33.2 g/dl (32.0-36.0) 10/19/18 07:40 RDW 14.7 % (11.6-15.6) 10/19/18 07:40 Plt Count 165 K/MM3 (134-434) 10/19/18 07:40 MPV 9.0 fl (7.5-11.1) 10/19/18 07:40 Sodium 143 mmol/L (136-145) 10/19/18 07:40 Potassium 4.4 mmol/L (3.5-5.1) 10/19/18 07:40 Chloride 108 mmol/L (98-107) H 10/19/18 07:40 Carbon Dioxide 31 mmol/L (21-32) 10/19/18 07:40 Anion Gap 4 MMOL/L (8-16) L 10/19/18 07:40 BUN 19 mg/dL (7-18) H 10/19/18 07:40 Creatinine 0.8 mg/dL (0.55-1.3) 10/19/18 07:40 Creat Clearance w eGFR > 60 (>60) 10/19/18 07:40 Random Glucose 74 mg/dL (74-106) 10/19/18 07:40 Calcium 8.5 mg/dL (8.5-10.1) 10/19/18 07:40 Total Bilirubin 0.1 mg/dL (0.2-1) L 10/19/18 07:40 AST 16 U/L (15-37) 10/19/18 07:40 ALT 34 U/L (13-61) 10/19/18 07:40 Alkaline Phosphatase 173 U/L (45-117) H 10/19/18 07:40 Total Protein 6.6 g/dl (6.4-8.2) 10/19/18 07:40 Albumin 3.1 g/dl (3.4-5.0) L 10/19/18 07:40 Urine Color Yellow 10/19/18 18:19 Urine Appearance Slcloudy 10/19/18 18:19 Urine pH 5.0 (5.0-8.0) 10/19/18 18:19 Ur Specific [place] 1.025 (1.010-1.035) 10/19/18 18:19 Urine Protein Negative (NEGATIVE) 10/19/18 18: Urine Glucose (UA) Negative (NEGATIVE) 10/19/18 18: Urine Ketones Negative (NEGATIVE) 10/19/18 18: Urine Blood Negative (NEGATIVE) 10/19/18 18:19 Urine Nitrite Positive (NEGATIVE) 10/19/18 18: Urine Bilirubin Negative (<2.0 mg/dL) 10/19/18 18:19 Urine Urobilinogen Negative mg/dL (0.2-1.0) 10/19/18 18:19 Ur Leukocyte Esterase 3+ (NEGATIVE) H D 10/19/18 18:19 Urine WBC (Auto) 37 /hpf (3-5) 10/19/18 18:19 Urine RBC (Auto) 3 /hpf (0-3) 10/19/18 18:19 Ur Epithelial Cells Rare /HPF (FEW) 10/19/18 18:19 Urine Bacteria Many /hpf (NONE SEEN) 10/19/18 18:19 Urine Mucus Few 10/19/18 18:19 Phenytoin 4.5 ug/ml (10.0-20.0) L 10/19/18 07:40 RPR Titer Nonreactive (NONREACTIVE) 10/19/18 07:40 lab noted low wbc uti - Treatment Hospital Course: Detox Protocol Followed, Detoxed Safely, Responded well, Discharged Condition Good, Rehab Referral Accepted Patient has Accepted a Rehab Referral to: [facility] - Medication Discharge Medications: Ambulatory Orders Methadone [Dolophine -] 120 mg PO DAILY 10/18/18 Phenytoin Na Extended [Dilantin -] 300 mg PO DAILY #30 capsule 10/20/18 - Diagnosis (1) Seizure disorder Current Visit: Yes Status: Chronic (2) Methadone maintenance therapy patient Current Visit: Yes Status: Chronic (3) Alcohol dependence with uncomplicated withdrawal Current Visit: Yes Status: Acute (4) Hepatitis C Current Visit: Yes Status: Suspected Qualifiers: Viral hepatitis chronicity: chronic Hepatic coma status: without hepatic coma Qualified Code(s): B18.2 - Chronic viral hepatitis C - AMA Did Patient Leave Against Medical Advice: No
[2018-10-21 13:25] VITALS: BP 99/62; PULSE 71
== END 2018-10-21 15:58 | disposition other institution (70) | DRG 773 ==
LOC: YASAS 12:06 → Y3N 15:16
PROVIDERS: ADMIT Surgery; ATTEND Surgery
PROC: HZ2ZZZZ Detoxification Services for Substance Abuse Treatment (ICD-10-PCS; principal; 2018-10-18)
DX: F10.230 Alcohol dependence with withdrawal, uncomplicated (principal); F11.20 Opioid dependence, uncomplicated; F14.20 Cocaine dependence, uncomplicated; F17.210 Nicotine dependence, cigarettes, uncomplicated; G40.89 Other seizures; B18.2 Chronic viral hepatitis C; K08.109 Complete loss of teeth, unspecified cause, unspecified class; Z87.42 Personal history of other diseases of the female genital tract; Z86.79 Personal history of other diseases of the circulatory system; Z91.5 Personal history of self-harm
CPT/HCPCS: 36415; 80053; 80185; 81003; 81015; 85027; 86593

== ENCOUNTER 2018-10-21 15:47 | Inpatient (IN) | payer OTHER ==
--- NOTE | 2018-10-21 12:53 | HP ---
[facility] Rehab Assess/Revision - Admission History Admitted to Rehab from: [facility] Date of Admission to Rehab: 10/21/18 - Findings Detox History & Physical reviewed: Yes Concur with findings: Yes Comments/Additional Findings: transferred from detox to rehab admission as per protocol Inpatient Rehab Admission - Rehab Decision to Admit Inpatient rehab admission?: Yes - Initial Determination Are CD services needed?: Yes Free of communicable disease: Yes Not in need of hospitalization: Yes - Rehab Admission Criteria Previous failed treatment: Yes Poor recovery environment: Yes Comorbidities: Yes Lacks judgement: No Patient is meeting Inpatient Rehab admission criteria:: Yes
[~2018-10-21 15:47] MED LIST: ACETAMINOPHEN 325 MG TABLET (FP) PO PRN; LOPERAMIDE HCL 2 MG CAPSULE PO PRN; MAG HYDROX/AL HYDROX/SIMETH 30 ML UNIT-DOSE CUP PO PRN; MAGNESIUM CITRATE 300 ML BOTTLE PO PRN; MAGNESIUM HYDROX 2400MG/30ML ORAL SUSPENSION 30 ML CUP PO PRN; MENTHOL/PHENOL 1 EACH UD MM PRN; NICOTINE 14 MG/24 HOURS TOPICAL PATCH TD PRN; NICOTINE POLACRILEX 2 MG GUM BUC PRN; P-EPHED 60MG/TRIPROLIDI 2.5MG TABLET PO PRN; guaiFENesin 200 MG/10 ML 10 ML UNIT-DOSE CUPS PO PRN
[2018-10-21] MEDS: SULFAMETHOXAZOLE/TRIMETHOPRIM 800MG/160MG D.S. TABLET PO SCH ×2 (17:29→21:47)
[2018-10-21] MEDS: THIAMINE HCL 100 MG TABLET (FP) PO SCH (21:48)
[2018-10-22] MEDS ORDERED: MENTHOL/PHENOL 1 EACH UD MM PRN (06:35)
[2018-10-22] MEDS: METHADONE HCL 40 MG DISPERSABLE TABLET PO SCH (06:46)
[2018-10-22] MEDS: PRENATAL VITAMINS W/ FOLIC ACID TABLET (FP) PO SCH (09:59)
[2018-10-22] MEDS: SULFAMETHOXAZOLE/TRIMETHOPRIM 800MG/160MG D.S. TABLET PO SCH ×2 (10:00→21:16)
[2018-10-22] MEDS ORDERED: METHADONE HCL 40 MG DISPERSABLE TABLET PO SCH (10:00)
[2018-10-22] MEDS: PHENYTOIN NA EXTENDED 100 MG CAPSULE (FP) PO SCH (10:01)
[2018-10-22 10:23] LABS: BASO % 0.7 % (0-2.0); EOS % 4.2 % (0-4.5); HEMATOCRIT 35.4 % (32.4-45.2); HEMOGLOBIN 11.8 GM/dL (10.7-15.3); LYMPH % 40.1 % (8-40); MCH 29.6 pg (25.7-33.7); MCHC 33.3 g/dl (32.0-36.0); MEAN PLT VOLUME 9.2 fl (7.5-11.1); MONO % 11.4 % (3.8-10.2); NEUT % 43.6 % (42.8-82.8); PLATELET COUNT 185 K/MM3 (134-434); RBC 3.98 M/mm3 (3.60-5.2); RDW 14.6 % (11.6-15.6)
[2018-10-22 15:33] LABS: URINE APPEARANCE CLOUDY; URINE BILIRUBIN NEGATIVE (<2.0 mg/dL); URINE COLOR AMBER; URINE GLUCOSE (UA) NEGATIVE (NEGATIVE); URINE KETONE NEGATIVE (NEGATIVE); URINE LEUK ESTERASE TRACE (NEGATIVE); URINE NITRITE NEGATIVE (NEGATIVE); URINE PROTEIN NEGATIVE (NEGATIVE); URINE UROBILINOGEN NEGATIVE mg/dL (0.2-1.0)
[2018-10-22 15:36] LABS: EPI CELLS MODERATE /HPF (FEW); URINE HYALINE CAST 5 /lpf; URINE MUCUS RARE
--- NOTE | 2018-10-22 15:39 | PN ---
[facility] Progress Note Note: Laboratory Tests 10/22/18 10/22/18 10/22/18 08:30 08:30 08:30 WBC 3.0 L RBC 3.98 Hgb 11.8 Hct 35.4 MCV 89.0 MCH 29.6 MCHC 33.3 RDW 14.6 Plt Count 185 MPV 9.2 Absolute Neuts (auto) 1.3 L Neutrophils % 43.6 Lymphocytes % 40.1 H Monocytes % 11.4 H Eosinophils % 4.2 Basophils % 0.7 Nucleated RBC % 0 Urine Color Urine Appearance Urine pH Ur Specific [place] Urine Protein Urine Glucose (UA) Urine Ketones Urine Blood Urine Nitrite Urine Bilirubin Urine Urobilinogen Ur Leukocyte Esterase Urine WBC (Auto) Urine RBC (Auto) Ur Epithelial Cells Hyaline Casts Urine Mucus Phenytoin 13.0 HIV 1&2 Antibody Screen Negative HIV P24 Antigen Negative 10/22/18 13:10 WBC RBC Hgb Hct MCV MCH MCHC RDW Plt Count MPV Absolute Neuts (auto) Neutrophils % Lymphocytes % Monocytes % Eosinophils % Basophils % Nucleated RBC % Urine Color [place] Urine Appearance Cloudy Urine pH 5.0 Ur Specific [place] 1.026 Urine Protein Negative Urine Glucose (UA) Negative Urine Ketones Negative Urine Blood Negative Urine Nitrite Negative Urine Bilirubin Negative Urine Urobilinogen Negative Ur Leukocyte Esterase Trace Urine WBC (Auto) 4 Urine RBC (Auto) 2 Ur Epithelial Cells Moderate Hyaline Casts 5 Urine Mucus Rare Phenytoin HIV 1&2 Antibody Screen HIV P24 Antigen ua improved. increase po fluids Started on bactrim ds in detox and continued in rehab. Spoke to Tere Hobbs np in detox and intends to treat for 7 days. To stop tx on 10/25/18.
[2018-10-22] MEDS: THIAMINE HCL 100 MG TABLET (FP) PO SCH (21:16)
[2018-10-22] MEDS: MELATONIN 5 MG TABLETS PO PRN (21:17)
[2018-10-23] MEDS: METHADONE HCL 40 MG DISPERSABLE TABLET PO SCH (06:21)
[2018-10-23] MEDS: SULFAMETHOXAZOLE/TRIMETHOPRIM 800MG/160MG D.S. TABLET PO SCH ×2 (10:01→21:31)
[2018-10-23] MEDS: PRENATAL VITAMINS W/ FOLIC ACID TABLET (FP) PO SCH (10:01)
[2018-10-23] MEDS: PHENYTOIN NA EXTENDED 100 MG CAPSULE (FP) PO SCH (10:02)
[2018-10-23] MEDS ORDERED: COLLOIDAL OATMEAL 1 BAR EACH TP PRN (11:08)
[2018-10-23] MEDS: THIAMINE HCL 100 MG TABLET (FP) PO SCH (21:31)
[2018-10-23] MEDS: MELATONIN 5 MG TABLETS PO PRN (22:03)
[2018-10-24] MEDS: METHADONE HCL 40 MG DISPERSABLE TABLET PO SCH (06:20)
[2018-10-24] MEDS: PHENYTOIN NA EXTENDED 100 MG CAPSULE (FP) PO SCH (10:01)
[2018-10-24] MEDS: PRENATAL VITAMINS W/ FOLIC ACID TABLET (FP) PO SCH (10:01)
[2018-10-24] MEDS: SULFAMETHOXAZOLE/TRIMETHOPRIM 800MG/160MG D.S. TABLET PO SCH ×2 (10:01→21:38)
[2018-10-24] MEDS: IBUPROFEN 400 MG TABLET (FP) PO PRN (12:27)
[2018-10-24] MEDS: THIAMINE HCL 100 MG TABLET (FP) PO SCH (21:37)
[2018-10-24] MEDS: MELATONIN 5 MG TABLETS PO PRN (21:38)
[2018-10-25] MEDS: METHADONE HCL 40 MG DISPERSABLE TABLET PO SCH (06:12)
[2018-10-25] MEDS: SULFAMETHOXAZOLE/TRIMETHOPRIM 800MG/160MG D.S. TABLET PO SCH ×2 (10:45→21:04)
[2018-10-25] MEDS: PHENYTOIN NA EXTENDED 100 MG CAPSULE (FP) PO SCH (10:49)
[2018-10-25] MEDS: PRENATAL VITAMINS W/ FOLIC ACID TABLET (FP) PO SCH (10:49)
[2018-10-25] MEDS: MELATONIN 5 MG TABLETS PO PRN (21:04)
[2018-10-25] MEDS: THIAMINE HCL 100 MG TABLET (FP) PO SCH (21:04)
[2018-10-26] MEDS: METHADONE HCL 40 MG DISPERSABLE TABLET PO SCH (06:13)
[2018-10-26] MEDS: SULFAMETHOXAZOLE/TRIMETHOPRIM 800MG/160MG D.S. TABLET PO SCH ×2 (10:27→21:40)
[2018-10-26] MEDS: PHENYTOIN NA EXTENDED 100 MG CAPSULE (FP) PO SCH (10:27)
[2018-10-26] MEDS: PRENATAL VITAMINS W/ FOLIC ACID TABLET (FP) PO SCH (10:27)
[2018-10-26] MEDS: MELATONIN 5 MG TABLETS PO PRN (21:40)
[2018-10-26] MEDS: THIAMINE HCL 100 MG TABLET (FP) PO SCH (21:40)
[2018-10-27] MEDS: METHADONE HCL 40 MG DISPERSABLE TABLET PO SCH (06:19)
[2018-10-27] MEDS: PHENYTOIN NA EXTENDED 100 MG CAPSULE (FP) PO SCH (10:14)
[2018-10-27] MEDS: PRENATAL VITAMINS W/ FOLIC ACID TABLET (FP) PO SCH (10:14)
[2018-10-27] MEDS: SULFAMETHOXAZOLE/TRIMETHOPRIM 800MG/160MG D.S. TABLET PO SCH ×2 (10:14→21:30)
[2018-10-27] MEDS: THIAMINE HCL 100 MG TABLET (FP) PO SCH (21:30)
[2018-10-27] MEDS: MELATONIN 5 MG TABLETS PO PRN (21:31)
[2018-10-28] MEDS: METHADONE HCL 40 MG DISPERSABLE TABLET PO SCH (06:14)
[2018-10-28] MEDS: PHENYTOIN NA EXTENDED 100 MG CAPSULE (FP) PO SCH (10:24)
[2018-10-28] MEDS: PRENATAL VITAMINS W/ FOLIC ACID TABLET (FP) PO SCH (10:24)
[2018-10-28] MEDS: SULFAMETHOXAZOLE/TRIMETHOPRIM 800MG/160MG D.S. TABLET PO SCH ×2 (10:24→21:29)
--- NOTE | 2018-10-28 14:30 | PN ---
S Progress Note Note: Called by nursing staff on behalf of patient complaining of anxiety. Vistaril 50 mg po Q 4hrs ordered pending consultation
[2018-10-28] MEDS: hydrOXYzine PAMOATE 50 MG CAPSULE (FP) PO PRN ×2 (15:30→21:28)
--- NOTE | 2018-10-28 15:37 | PN ---
[facility] Progress Note Note: PT ON METHADONE 120 MG PO DAILY BUT AGITATED AND C/O "IT'S NOT HOLDING ME". REQUESTING FOR INCREASED METHADONE. PT WAS INFORMED TO SPEAK TO HER COUNSELOR AND CONTACT HER MMTP. LETTER OF INTENT TO BE FAXED TO [facility] PROGRAM ALLOWING US TO INCREASE HER IF THAT BE THEIR RECOMMENDATION. PT IS ALERT O X 3. NAD. Vital Signs (72 hours) 10/26/18 10/26/18 10/26/18 00:30 03:30 07:09 Temperature 97.2 F L Pulse Rate 60 Respiratory 17 18 18 Rate Blood Pressure 105/70 10/27/18 10/27/18 10/28/18 03:30 07:22 00:30 Temperature 97.2 F L Pulse Rate 73 Respiratory 18 18 16 Rate Blood Pressure 121/78 10/28/18 10/28/18 03:30 07:11 Temperature 97.1 F L Pulse Rate 73 Respiratory 16 16 Rate Blood Pressure 103/67 Laboratory Tests 10/22/18 10/22/18 10/22/18 08:30 08:30 08:30 WBC 3.0 L RBC 3.98 Hgb 11.8 Hct 35.4 MCV 89.0 MCH 29.6 MCHC 33.3 RDW 14.6 Plt Count 185 MPV 9.2 Absolute Neuts (auto) 1.3 L Neutrophils % 43.6 Lymphocytes % 40.1 H Monocytes % 11.4 H Eosinophils % 4.2 Basophils % 0.7 Nucleated RBC % 0 Urine Color Urine Appearance Urine pH Ur Specific [place] Urine Protein Urine Glucose (UA) Urine Ketones Urine Blood Urine Nitrite Urine Bilirubin Urine Urobilinogen Ur Leukocyte Esterase Urine WBC (Auto) Urine RBC (Auto) Ur Epithelial Cells Hyaline Casts Urine Mucus Phenytoin 13.0 HIV 1&2 Antibody Screen Negative HIV P24 Antigen Negative 10/22/18 13:10 WBC RBC Hgb Hct MCV MCH MCHC RDW Plt Count MPV Absolute Neuts (auto) Neutrophils % Lymphocytes % Monocytes % Eosinophils % Basophils % Nucleated RBC % Urine Color [place] Urine Appearance Cloudy Urine pH 5.0 Ur Specific [place] 1.026 Urine Protein Negative Urine Glucose (UA) Negative Urine Ketones Negative Urine Blood Negative Urine Nitrite Negative Urine Bilirubin Negative Urine Urobilinogen Negative Ur Leukocyte Esterase Trace Urine WBC (Auto) 4 Urine RBC (Auto) 2 Ur Epithelial Cells Moderate Hyaline Casts 5 Urine Mucus Rare Phenytoin HIV 1&2 Antibody Screen HIV P24 Antigen PLAN:CONTINUE VISTARIL 50 MG PO Q4H PRN. ONE DOSE WAS GIVEN NOW BY NURSE LEEROY.
[2018-10-28] MEDS: THIAMINE HCL 100 MG TABLET (FP) PO SCH (21:28)
[2018-10-29] MEDS: METHADONE HCL 40 MG DISPERSABLE TABLET PO SCH (06:12)
[2018-10-29] MEDS: hydrOXYzine PAMOATE 50 MG CAPSULE (FP) PO PRN ×3 (07:42→17:36)
--- NOTE | 2018-10-29 08:05 | CONSULT ---
[facility] Psychiatric Consult - Data Date of interview: 10/29/18 Admission source: 3N Identifying data: Ms Chirinos is a 53 years old single Black female, mother of a 38 years old daughter, unemployed receiving food stamp, homeless seeking inpatient rehab treatment for alcohol, opioid and cocaine Substance Abuse History: Reports history of alcohol, heroin and cocaine use. Refer to welding specialist's summary for further information Medical History: Significant for seizure disorder, history of treatment for hepatitis C, syphilis and neurosurgery for left brain aneurysm in 1992. Patient is on methadone 120 mg/day( [facility]). Smokes cigarettes 1ppd Psychiatric History: Patient is a versatile, unreliable historian. She saw Dr Huynh recently on 10/29/18 while in detox in this facility. She denied history of psychiatric hospitalizations but endorses brief history of OPD care for MDD and treatment in the past with sertraline. Now told copywriter she was hospitalized twice. She claims that first hospitalization occured 2 months ago when she was referred to a hospital in after she presented to [facility] for depression and suicidal ideation. Told copywriter that depression stemmed from the lost of her 4 years ago. Reports one more hospitalization at [facility]. Told copywriter that she was treated with Zoloft. Denies current OPD care or taking medication. Denies history of suicide attempts. Physical/Sexual Abuse/Trauma History: Denies Mental Status Exam - Mental Status Exam Alert and Oriented to: Time, Place, Person Cognitive Function: Fair Patient Appearance: Well Groomed Mood: Irritable Affect: Appropriate Patient Behavior: Uncooperative Speech Pattern: Clear Voice Loudness: Normal Thought Process: Intact Thought Disorder: Not Present Hallucinations: Denies Suicidal Ideation: Denies Homicidal Ideation: Denies Insight/Judgement: Fair Sleep: Well Appetite: Good Psychiatric Findings - Problem List ([place] 1, 2,3) (1) Substance induced mood disorder Current Visit: Yes Status: Acute (2) Alcohol dependence Current Visit: Yes Status: Acute (3) Cocaine dependence Current Visit: Yes Status: Acute (4) Nicotine dependence Current Visit: No Status: Chronic Qualifiers: Nicotine product type: cigarettes Substance use status: uncomplicated Qualified Code(s): F17.210 - Nicotine dependence, cigarettes, uncomplicated (5) Opioid dependence Current Visit: Yes Status: Chronic (6) Brain aneurysm Current Visit: No Status: Acute (7) Seizure disorder Current Visit: No Status: Chronic Comment: yordan level pending (8) Hepatitis C Current Visit: No Status: Suspected Qualifiers: Viral hepatitis chronicity: chronic Hepatic coma status: without hepatic coma Qualified Code(s): B18.2 - Chronic viral hepatitis C - Initial Treatment Plan Initial Treatment Plan: Continue inpatient rehabilitation
[2018-10-29] MEDS: SULFAMETHOXAZOLE/TRIMETHOPRIM 800MG/160MG D.S. TABLET PO SCH ×2 (10:16→21:16)
[2018-10-29] MEDS: PRENATAL VITAMINS W/ FOLIC ACID TABLET (FP) PO SCH (10:16)
[2018-10-29] MEDS: PHENYTOIN NA EXTENDED 100 MG CAPSULE (FP) PO SCH (10:16)
[2018-10-29] MEDS: IBUPROFEN 400 MG TABLET (FP) PO PRN (10:17)
[2018-10-29] MEDS: THIAMINE HCL 100 MG TABLET (FP) PO SCH (21:16)
[2018-10-29] MEDS: MELATONIN 5 MG TABLETS PO PRN (21:17)
[2018-10-30] MEDS: METHADONE HCL 40 MG DISPERSABLE TABLET PO SCH (06:27)
[2018-10-30] MEDS: hydrOXYzine PAMOATE 50 MG CAPSULE (FP) PO PRN (06:27)
[2018-10-30 07:37] VITALS: BP 120/78; PULSE 69; TEMP 97.2
[2018-10-30] MEDS: SULFAMETHOXAZOLE/TRIMETHOPRIM 800MG/160MG D.S. TABLET PO SCH (10:29)
[2018-10-30] MEDS: PHENYTOIN NA EXTENDED 100 MG CAPSULE (FP) PO SCH (10:29)
[2018-10-30] MEDS: PRENATAL VITAMINS W/ FOLIC ACID TABLET (FP) PO SCH (10:29)
[2018-10-30 11:38] LABS: URINE APPEARANCE SLCLOUDY; URINE BILIRUBIN NEGATIVE (<2.0 mg/dL); URINE COLOR YELLOW; URINE GLUCOSE (UA) NEGATIVE (NEGATIVE); URINE KETONE NEGATIVE (NEGATIVE); URINE LEUK ESTERASE TRACE (NEGATIVE); URINE NITRITE NEGATIVE (NEGATIVE); URINE PROTEIN NEGATIVE (NEGATIVE); URINE UROBILINOGEN NEGATIVE mg/dL (0.2-1.0)
[2018-10-30 11:40] LABS: CALCIUM OXALATE CRYSTALS RARE /hpf (NONE SEEN); URINE BACTERIA FEW /hpf (NONE SEEN); URINE HYALINE CAST 2 /lpf; URINE MUCUS FEW
--- NOTE | 2018-10-30 13:59 | PN ---
[facility] Progress Note Note: PT REQUESTED FOR EARLY DISCHARGE TODAY. PT MET WITH HER COUNSELOR AND HAS BEEN REFERRED TO [facility] FOR CD AFTERCARE AT [address], [place]. PT REPORTS SHE HAS PRIMARY CARE WITH DR. MCGEE AT [facility] [address]/[place], [place]. COURTESY RX FOR NARCAN ELECTRONICALLY SENT TO [facility] BELOW FOR PATIENT IT ARCHITECTURE CONSULTANT AFTER DISCHARGE. PT ALSO HAS RX FOR DILANTIN WAITING FOR IT ARCHITECTURE CONSULTANT AT [facility]. ALERT O X 3. DENIES S/H /I. Home Medications Medication Instructions Recorded Methadone [Dolophine -] 120 mg PO DAILY 10/18/18 Phenytoin Na Extended [Dilantin -] 300 mg PO DAILY #30 capsule 10/20/18 Naloxone HCl [Narcan] 4 mg NS ONCE #1 spray 10/30/18 Vital Signs (72 hours) 10/28/18 10/28/18 10/28/18 00:30 03:30 07:11 Temperature 97.1 F L Pulse Rate 73 Respiratory 16 16 16 Rate Blood Pressure 103/67 10/29/18 10/29/18 10/29/18 00:30 03:30 07:08 Temperature 97.5 F L Pulse Rate 66 Respiratory 16 16 18 Rate Blood Pressure 118/70 10/30/18 10/30/18 10/30/18 00:30 03:30 07:36 Temperature 97.2 F L Pulse Rate 69 Respiratory 16 16 18 Rate Blood Pressure 120/78 Laboratory Tests 10/22/18 10/22/18 10/22/18 08:30 08:30 08:30 WBC 3.0 L RBC 3.98 Hgb 11.8 Hct 35.4 MCV 89.0 MCH 29.6 MCHC 33.3 RDW 14.6 Plt Count 185 MPV 9.2 Absolute Neuts (auto) 1.3 L Neutrophils % 43.6 Lymphocytes % 40.1 H Monocytes % 11.4 H Eosinophils % 4.2 Basophils % 0.7 Nucleated RBC % 0 Urine Color Urine Appearance Urine pH Ur Specific [place] Urine Protein Urine Glucose (UA) Urine Ketones Urine Blood Urine Nitrite Urine Bilirubin Urine Urobilinogen Ur Leukocyte Esterase Urine WBC (Auto) Urine RBC (Auto) Ur Epithelial Cells Calcium Oxalate Crystal Urine Bacteria Hyaline Casts Urine Mucus Phenytoin 13.0 HIV 1&2 Antibody Screen Negative HIV P24 Antigen Negative 10/22/18 10/30/18 13:10 08:00 WBC RBC Hgb Hct MCV MCH MCHC RDW Plt Count MPV Absolute Neuts (auto) Neutrophils % Lymphocytes % Monocytes % Eosinophils % Basophils % Nucleated RBC % Urine Color [place] Yellow Urine Appearance Cloudy Slcloudy Urine pH 5.0 5.0 Ur Specific [place] 1.026 1.024 Urine Protein Negative Negative Urine Glucose (UA) Negative Negative Urine Ketones Negative Negative Urine Blood Negative Negative Urine Nitrite Negative Negative Urine Bilirubin Negative Negative Urine Urobilinogen Negative Negative Ur Leukocyte Esterase Trace Trace Urine WBC (Auto) 4 2 Urine RBC (Auto) 2 4 Ur Epithelial Cells Moderate Calcium Oxalate [place] Rare Urine Bacteria Few Hyaline Casts 5 2 Urine Mucus Rare Few Phenytoin HIV 1&2 Antibody Screen HIV P24 Antigen NAD MEDICALLY STABLE PLAN:FOLLOW UP WITH CD AFTERCARE RECOMMENDED. FOLLOW UP WITH PRIMARY CARE ABOVE WITHIN 1-2 WEEKS AFTER DISCHARGE.
== END 2018-10-30 13:51 | disposition home or self-care (01) | DRG 772 ==
LOC: YASAS 15:47 → Y3E 15:49
PROVIDERS: ADMIT Neuromusculoskeletal Medicine & OMM; ATTEND Neuromusculoskeletal Medicine & OMM
PROC: HZ42ZZZ Group Counseling for Substance Abuse Treatment, Cognitive-Behavioral (ICD-10-PCS; principal; 2018-10-21)
DX: F10.20 Alcohol dependence, uncomplicated (principal); F14.20 Cocaine dependence, uncomplicated; F11.20 Opioid dependence, uncomplicated; F19.24 Other psychoactive substance dependence with psychoactive substance-induced mood disorder; B18.2 Chronic viral hepatitis C; G40.909 Epilepsy, unspecified, not intractable, without status epilepticus; Z86.79 Personal history of other diseases of the circulatory system
CPT/HCPCS: 36415; 80185; 81003; 81015; 85025; 87389

== ENCOUNTER 2019-04-08 08:53 | Inpatient (IN) | payer OTHER ==
--- NOTE | 2019-04-08 12:03 | HP ---
COWS - Scale Resting Pulse: 1= NE 81-100 Sweatin= Chills/Flushing Restless Observation: 1= Difficult to Sit Still Pupil Size: 1= Pupils >than Normal Bone or Joint Aches: 2= Severe Diffuse Aches Runny Nose/ Eye Tearin= Nasal Congestion GI Upset > 30mins: 1= Stomach Cramp Tremor Observation: 1= Tremor [place], Not Seen Yawning Observation: 1= 1-2x During Session Anxiety or Irritability: 2=Irritable/Anxious (appropriate for opiate detox) Goose Flesh Skin: 0=Smooth Skin COWS Score: 12 CIWA Score - Admission Criteria OASAS Guidelines: Admission for Medically Managed Detox: Requires at least one of the followin. CIWA greater than 12 2. Seizures within the past 24 hours 3. Delirium tremens within the past 24 hours 4. Hallucinations within the past 24 hours 5. Acute intervention needed for co occurring medical disorder 6. Acute intervention needed for co occurring psychiatric disorder 7. Severe withdrawal that cannot be handled at a lower level of care (continued vomiting, continued diarrhea, abnormal vital signs) requiring intravenous medication and/or fluids 8. Admission ROS [facility] Chief Complaint: I want to get into detox. I'm using heroin every day and I left [facility] Methadone program 3 months ago. Allergies/Adverse Reactions: Allergies Allergy/AdvReac Type Severity Reaction Status Date / Time No Known Allergies Allergy Verified 04/08/19 10:22 History of Present Illness: Patient is a 54 year old black female with Opioid Dependence and Cocaine use disorder. Patient has been using 3 bundles of heroin per day, last used early this morning. She left her [facility] Methadone program 3 months ago and relapsed and started using heavily thereafter. She also admits to using Cocaine daily as well, last used yesterday. PMH: HCV, Seizure Disorder Psych Hx: Depression with attempted suicide in 2018 by overdosing on dilantin. Patient has Brain aneurysm in 1992. Exam Limitations: No Limitations - Ebola screening Have you traveled outside of the country in the last 21 days: No Have you had contact with anyone from an Ebola affected area: No Have you been sick,other than usual withdrawal symptoms: No Do you have a fever: No - Review of Systems Constitutional: Chills, Diaphoresis EENT: reports: No Symptoms Reported Respiratory: reports: No Symptoms reported Cardiac: reports: No Symptoms Reported GI: reports: Nausea, Poor Appetite : reports: No Symptoms Reported Musculoskeletal: reports: Back Pain Integumentary: reports: No Symptoms Reported Neuro: reports: No Symptoms reported Endocrine: reports: No Symptoms Reported Hematology: reports: No Symptoms Reported Psychiatric: reports: Judgement Intact, Mood/Affect Appropiate, Orientated x3 Other Systems: Reviewed and Negative Patient History - Patient Medical History Hx Anemia: No Hx Asthma: No Hx Chronic Obstructive Pulmonary Disease (COPD): No Hx Cancer: No Hx Cardiac Disorders: No Hx Congestive Heart Failure: No Hx Hypertension: No Hx Hypercholesterolemia: No Hx Pacemaker: No HX Cerebrovascular Accident: No Hx Seizures: Yes (Last seizure 01/2018) Hx Dementia: No Hx Diabetes: No Hx Gastrointestinal Disorders: No Hx Liver Disease: No Hx Genitourinary Disorders: No Hx Sexually Transmitted Disorders: Yes (Treated for Syphilis) Hx Renal Disease (ESRD): No Hx Thyroid Disease: No Hx Human Immunodeficiency Virus (HIV): No (08/31 last negative) Hx Hepatitis C: Yes Hx Depression: Yes Hx Suicide Attempt: Yes (ON with Dilantin) Hx Bipolar Disorder: No Hx Schizophrenia: No - Patient Surgical History Past Surgical History: Yes Hx Neurologic Surgery: Yes (brain aneurysm in 1992 left) Hx Cataract Extraction: No Hx Cardiac Surgery: No Hx Lung Surgery: No Hx Breast Surgery: No Hx Breast Biopsy: No Hx Abdominal Surgery: No Hx Appendectomy: No Hx Cholecystectomy: No Hx Genitourinary Surgery: No Hx Section: No Hx Orthopedic Surgery: No Hx Hysterectomy: No Other Surgical History: DENIES. Anesthesia Reaction: No - PPD History Previous Implant?: Yes Documented Results: Negative w/proof Implanted On Prior [facility] Admission?: Yes Date: 11/25/17 Results: 0 mm PPD to be Administered?: No - Reproductive History Last Menstrual Period: 09/01/04 - Smoking Cessation Smoking history: Current every day smoker Have you smoked in the past 12 months: Yes Aproximately how many cigarettes per day: 20 Cigars Per Day: 0 Hx Chewing Tobacco Use: No Initiated information on smoking cessation: Yes 'Breaking Loose' booklet given: 04/08/19 - Substances abused Alprazolam (Xanax) Substance route: Oral Frequency: 1-2 times per week Amount used: pint of vodka Age of first use: 3 Date of last use: 04/07/19 Heroin Substance route: Inhalation Frequency: Daily Amount used: 2 bags Age of first use: 12 Date of last use: 04/07/19 Family Disease History - Family Disease History Family Disease History: [place]: Father (), Mother (), Other: Father , Mother, Brother (no contact), Sister (no contact) Admission Physical Exam [facility] - Vital Signs Vital Signs: Vital Signs - 24 hr 04/08/19 10:15 Temperature 97.2 F L Pulse Rate 80 Respiratory 17 Rate Blood Pressure 150/80 - Physical General Appearance: Yes: Mild Distress HEENTM: Yes: EOMI, Hearing grossly Normal, Normocephalic, Normal Voice, JANNETTE, Pharynx Normal Respiratory: Yes: Chest Non-Tender, Lungs Clear, Normal Breath Sounds, No Respiratory Distress, No Accessory Muscle Use Neck: Yes: No masses,lesions,Nodules, Supple, Trachea in good position Breast: Yes: Breast Exam Deferred Cardiology: Yes: Regular Rhythm, Regular Rate, S1, S2 Abdominal: Yes: Non Tender, Soft, Increased Bowel Sounds Genitourinary: Yes: Within Normal Limits Back: Yes: Normal Inspection Musculoskeletal: Yes: full range of Motion, Gait Steady Extremities: Yes: Normal Capillary Refill, Normal Inspection, Normal Range of Motion, Non-Tender Neurological: Yes: resident physician II-XII NML intact, Fully Oriented, Alert, Motor Strength 5/5, Normal Mood/Affect Integumentary: Yes: Dry, Warm Lymphatic: Yes: Within Normal Limits - Diagnostic (1) Brain aneurysm Current Visit: Yes Status: Chronic (2) Depression Current Visit: Yes Status: Chronic (3) Cocaine dependence Current Visit: Yes Status: Acute (4) Opioid dependence Current Visit: Yes Status: Acute (5) Seizure disorder Current Visit: No Status: Chronic Comment: dilantin level pending (6) Hepatitis C Current Visit: No Status: Suspected Qualifiers: Viral hepatitis chronicity: chronic Hepatic coma status: without hepatic coma Qualified Code(s): B18.2 - Chronic viral hepatitis C Cleared for Admission S - Detox or Rehab [facility] Level of Care: Medically Managed Screened but not Admitted - Documentation of Visit Screened but not Admitted: No Breathalyzer - Breathalyzer Breathalyzer: 0 Vital Signs - Vital Signs Vital signs refused: No Temperature: 97.2 F Temperature source: Oral Pulse Rate: 80 Respiratory Rate: 17 Blood Pressure: 150/80 BP Location: Left Arm Blood Pressure position: Sitting - Height Height: 5 ft 11 in - Weight Weight: 145 lb Weight measurement method: Standing scale - BMI Body Mass Index (BMI): 20.2 - Bowel Function Bowel Movement: No Urine Drug Screen - Test Device Lot number: [id number] Expiration date: 01/10/21 - Control Is test valid?: Yes - Results Drug screen NEGATIVE: Yes Urine drug screen results: KANE-Cocaine, MOP-Opiates, BZO-Benzodiazepines Inpatient Rehab Admission - Rehab Decision to Admit Inpatient rehab admission?: No
[2019-04-08 12:10] VITALS: BMI 20.2
[2019-04-08] MEDS ORDERED: cloNIDine HCL 0.1 MG TABLET PO PRN (12:14)
[2019-04-08] MEDS ORDERED: MAG HYDROX/AL HYDROX/SIMETH 30 ML UNIT-DOSE CUP PO PRN (12:14)
[2019-04-08] MEDS ORDERED: MENTHOL/PHENOL 1 EACH UD MM PRN (12:14)
[2019-04-08] MEDS ORDERED: MAGNESIUM CITRATE 300 ML BOTTLE PO PRN (12:14)
[2019-04-08] MEDS ORDERED: MAGNESIUM HYDROX 2400MG/30ML ORAL SUSPENSION 30 ML CUP PO PRN (12:14)
[2019-04-08] MEDS ORDERED: ACETAMINOPHEN 325 MG TABLET (FP) PO PRN ×2 (12:14)
[2019-04-08] MEDS ORDERED: BISMUTH SUBSALICYLATE 524 MG/30 ML UD PO PRN (12:14)
[2019-04-08] MEDS: NICOTINE 7 MG/24 HOURS TOPICAL PATCH TD SCH (13:44)
[2019-04-08] MEDS ORDERED: PHENYTOIN NA EXTENDED 100 MG CAPSULE (FP) PO SCH (13:45)
[2019-04-08] MEDS ORDERED: METHADONE HCL 10 MG TABLET (FOR DETOX USE ONLY) PO ONE (13:45)
[2019-04-08] MEDS: hydrOXYzine PAMOATE 25 MG CAPSULE (FP) PO PRN (21:55)
[2019-04-08] MEDS: THIAMINE HCL 100 MG TABLET (FP) PO SCH (21:56)
[2019-04-08] MEDS: MELATONIN 5 MG TABLETS PO PRN (21:56)
[2019-04-09] MEDS: PHENYTOIN NA EXTENDED 100 MG CAPSULE (FP) PO SCH (07:11)
--- NOTE | 2019-04-09 08:15 | CONSULT ---
[facility] Psychiatric Consult - Data Date of interview: 04/09/19 Admission source: Self-referred Identifying data: Ms Chirinos is a 54 years old single Black female, mother of a 38 years old daughter, unemployed receiving food stamp, homeless seeking inpatient rehab treatment for alcohol, opioid and cocaine Medical History: Significant for seizure disorder, history of treatment for hepatitis C, syphilis and neurosurgery for left brain aneurysm in 1992. Smokes cigarettes 1ppd Psychiatric History: Patient came for interview and then decided to leave the office saying:" I'm tired of this. I don't want to be asked questions"
[2019-04-09] MEDS ORDERED: METHADONE HCL 10 MG TABLET (FOR DETOX USE ONLY) ONE (09:15)
[2019-04-09] MEDS ORDERED: METHADONE HCL 5 MG TABLET (FOR DETOX USE ONLY) ONE (09:16)
[2019-04-09] MEDS ORDERED: METHADONE (DETOX) 20 MG, METHADONE (DETOX) 5 MG PO ONE (10:00)
[2019-04-09] MEDS: PRENATAL VITAMINS W/ FOLIC ACID TABLET (FP) PO SCH (10:31)
[2019-04-09] MEDS: NICOTINE 7 MG/24 HOURS TOPICAL PATCH TD SCH (10:32)
[2019-04-09] MEDS: METHOCARBAMOL 500 MG TABLET PO PRN (10:32)
[2019-04-09] MEDS: hydrOXYzine PAMOATE 25 MG CAPSULE (FP) PO PRN (10:32)
--- NOTE | 2019-04-09 11:00 | PN ---
BHS COWS - Scale Resting Pulse: 1= [place] 81-100 Sweatin= Chills/Flushing Restless Observation: 1= Difficult to Sit Still Pupil Size: 0= Normal to Room Light Bone or Joint Aches: 2= Severe Diffuse Aches Runny Nose/ Eye Tearin= Nasal Congestion GI Upset > 30mins: 0= None Tremor Observation of Outstretched Hands: 2= Slight Tremor Visible Yawning Observation: 2= >3x During Session Anxiety or Irritability: 2=Irritable/Anxious Goose Flesh Skin: 0=Smooth Skin COWS Score: 12 BHS Progress Note (SOAP) Subjective: sweats shakes interrupted sleep body aches Objective: 04/09/19 10:58 Vital Signs Temperature 98.1 F 04/09/19 09:33 Pulse Rate 84 04/09/19 09:33 Respiratory Rate 20 04/09/19 09:33 Blood Pressure 139/71 04/09/19 09:33 O2 Sat by Pulse Oximetry (%) labs pending aaox3 ambulating no acute distress Assessment: 04/09/19 10:58 withdrawal sx Plan: continue detox increase fluids pending labs
[2019-04-09] MEDS: THIAMINE HCL 100 MG TABLET (FP) PO SCH (22:06)
[2019-04-10] MEDS: IBUPROFEN 400 MG TABLET (FP) PO PRN (07:16)
[2019-04-10] MEDS: PHENYTOIN NA EXTENDED 100 MG CAPSULE (FP) PO SCH (07:19)
[2019-04-10] MEDS ORDERED: METHADONE HCL 10 MG TABLET (FOR DETOX USE ONLY) PO ONE (10:00)
[2019-04-10] MEDS: METHOCARBAMOL 500 MG TABLET PO PRN ×2 (10:08→15:26)
[2019-04-10] MEDS: PRENATAL VITAMINS W/ FOLIC ACID TABLET (FP) PO SCH (10:08)
[2019-04-10] MEDS: NICOTINE 7 MG/24 HOURS TOPICAL PATCH TD SCH (14:52)
[2019-04-10] MEDS: hydrOXYzine PAMOATE 25 MG CAPSULE (FP) PO PRN (19:49)
[2019-04-10] MEDS: THIAMINE HCL 100 MG TABLET (FP) PO SCH (22:51)
[2019-04-11] MEDS: PHENYTOIN NA EXTENDED 100 MG CAPSULE (FP) PO SCH (07:05)
[2019-04-11] MEDS: hydrOXYzine PAMOATE 25 MG CAPSULE (FP) PO PRN (07:23)
[2019-04-11] MEDS: IBUPROFEN 400 MG TABLET (FP) PO PRN ×2 (07:23→22:14)
[2019-04-11] MEDS ORDERED: METHADONE HCL 10 MG TABLET (FOR DETOX USE ONLY) ONE (08:47)
[2019-04-11] MEDS ORDERED: METHADONE HCL 5 MG TABLET (FOR DETOX USE ONLY) ONE (08:48)
[2019-04-11] MEDS ORDERED: METHADONE (DETOX) 10 MG, METHADONE (DETOX) 5 MG PO ONE (10:00)
[2019-04-11] MEDS: PRENATAL VITAMINS W/ FOLIC ACID TABLET (FP) PO SCH (10:07)
[2019-04-11] MEDS: METHOCARBAMOL 500 MG TABLET PO PRN (10:10)
[2019-04-11] MEDS: NICOTINE 7 MG/24 HOURS TOPICAL PATCH TD SCH (10:31)
--- NOTE | 2019-04-11 13:20 | PN ---
BHS COWS - Scale Resting Pulse: 0= ME 80 or Below Sweatin= Chills/Flushing Restless Observation: 1= Difficult to Sit Still Pupil Size: 0= Normal to Room Light Bone or Joint Aches: 2= Severe Diffuse Aches Runny Nose/ Eye Tearin= None GI Upset > 30mins: 0= None Tremor Observation of Outstretched Hands: 1= Tremor [place], Not Seen Yawning Observation: 0= None Anxiety or Irritability: 1=Feels Anxious/Irritable Goose Flesh Skin: 0=Smooth Skin COWS Score: 6 BHS Progress Note (SOAP) Subjective: sweats restless interrupted sleep Objective: 04/11/19 13:19 Vital Signs Temperature 98.1 F 04/11/19 12:43 Pulse Rate 86 04/11/19 12:43 Respiratory Rate 18 04/11/19 12:43 Blood Pressure 140/79 04/11/19 12:43 O2 Sat by Pulse Oximetry (%) aaox3 ambulating no acute distress Assessment: 04/11/19 13:20 withdrawal sx Plan: continue detox increase fluids
[2019-04-11] MEDS: THIAMINE HCL 100 MG TABLET (FP) PO SCH (22:15)
[2019-04-11] MEDS: MELATONIN 5 MG TABLETS PO PRN (22:15)
[2019-04-12] MEDS: PHENYTOIN NA EXTENDED 100 MG CAPSULE (FP) PO SCH (07:06)
[2019-04-12] MEDS: IBUPROFEN 400 MG TABLET (FP) PO PRN (09:47)
[2019-04-12] MEDS: METHOCARBAMOL 500 MG TABLET PO PRN (09:48)
[2019-04-12] MEDS: PRENATAL VITAMINS W/ FOLIC ACID TABLET (FP) PO SCH (09:48)
[2019-04-12] MEDS ORDERED: METHADONE HCL 10 MG TABLET (FOR DETOX USE ONLY) PO ONE (10:00)
[2019-04-12] MEDS: NICOTINE 7 MG/24 HOURS TOPICAL PATCH TD SCH (10:40)
--- NOTE | 2019-04-12 11:21 | PN ---
BHS COWS - Scale Resting Pulse: 0= MT 80 or Below Sweatin= Chills/Flushing Restless Observation: 0= Sits Still Pupil Size: 0= Normal to Room Light Bone or Joint Aches: 0= None Runny Nose/ Eye Tearin= None GI Upset > 30mins: 0= None Tremor Observation of Outstretched Hands: 0= None Yawning Observation: 1= 1-2x During Session Anxiety or Irritability: 1=Feels Anxious/Irritable Goose Flesh Skin: 0=Smooth Skin COWS Score: 3 BHS Progress Note (SOAP) Subjective: c/o muscle pain and interrupted sleep. Objective: 04/12/19 11:19 Vital Signs 04/12/19 04/12/19 04/12/19 03:30 07:17 09:50 Temperature 97.5 F L 96.4 F L Pulse Rate 68 64 Respiratory 18 18 16 Rate Blood Pressure 135/69 153/72 Assessment: 04/12/19 11:20 AOX3, in no acute respiratory distress. Full ROM, ambulating in the unit. mild withdrawal symptoms. For D/C 04/13/19 Plan: continue detox. D/C in AM.
[2019-04-12] MEDS ORDERED: NICOTINE POLACRILEX 2 MG GUM BUC PRN (12:28)
[2019-04-12] MEDS: hydrOXYzine PAMOATE 25 MG CAPSULE (FP) PO PRN ×2 (12:59→19:40)
[2019-04-12] MEDS: THIAMINE HCL 100 MG TABLET (FP) PO SCH (22:35)
[2019-04-13] MEDS ORDERED: METHADONE HCL 5 MG TABLET (FOR DETOX USE ONLY) PO ONE (06:00)
[2019-04-13] MEDS: PHENYTOIN NA EXTENDED 100 MG CAPSULE (FP) PO SCH (07:20)
[2019-04-13] MEDS: hydrOXYzine PAMOATE 25 MG CAPSULE (FP) PO PRN (07:22)
[2019-04-13 09:28] VITALS: BP 137/78; PULSE 74; TEMP 98.2
--- NOTE | 2019-04-13 11:52 | DS ---
[facility] Detox Discharge Summary Admission Date: 04/08/19 Discharge Date: 04/13/19 - History Present History: Cocaine Dependence, Opioid Dependence Additional Comments: Patient completed detox successfully. Patient scheduled for admission to [facility] today and stated she should be picked up at 10:am. There was no transportation at that time and chief underwriter and staff encouraged patient to wait for transportation. Patient decided to go home instead. Admission bed arranged for patient here at [facility] but she refused stating she rather go home. Patient discharged in stable condition. Encouraged to follow up with her PCP within 1 week. Pertinent Past History: Opioid dependence Cocaine dependence Benzodiazepine abuse Nicotine dependence Seizure disorder Hepatitis C - Physical Exam Results Vital Signs: Vital Signs Temperature 98.2 F 04/13/19 09:27 Pulse Rate 74 04/13/19 09:27 Respiratory Rate 18 04/13/19 09:27 Blood Pressure 137/78 04/13/19 09:27 O2 Sat by Pulse Oximetry (%) Pertinent Admission Physical Exam Findings: Withdrawal sxs No Admission labs seen; lab results from 10/2018 reviewed - Treatment Hospital Course: Detox Protocol Followed, Detoxed Safely, Responded well, Discharged Condition Good - Medication Discharge Medications: Ambulatory Orders Methadone [Dolophine -] 120 mg PO DAILY 10/18/18 Phenytoin Na Extended [Dilantin -] 300 mg PO DAILY #30 capsule 10/20/18 - Diagnosis (1) Benzodiazepine abuse Status: Acute (2) Opioid dependence Status: Acute (3) Cocaine dependence, uncomplicated Status: Chronic (4) Nicotine dependence Status: Chronic Qualifiers: Nicotine product type: cigarettes Substance use status: uncomplicated Qualified Code(s): F17.210 - Nicotine dependence, cigarettes, uncomplicated (5) Seizure disorder Status: Chronic (6) Hepatitis C Status: Chronic Qualifiers: Viral hepatitis chronicity: chronic Hepatic coma status: without hepatic coma Qualified Code(s): B18.2 - Chronic viral hepatitis C - AMA Did Patient Leave Against Medical Advice: No (Follow up with PCP within 1 week)
== END 2019-04-13 10:25 | disposition home or self-care (01) | DRG 773 ==
LOC: YASAS 08:53 → Y6N 12:48
PROVIDERS: ADMIT Surgery; ATTEND Surgery
PROC: HZ2ZZZZ Detoxification Services for Substance Abuse Treatment (ICD-10-PCS; principal; 2019-04-08)
DX: F11.23 Opioid dependence with withdrawal (principal); F13.10 Sedative, hypnotic or anxiolytic abuse, uncomplicated; F14.20 Cocaine dependence, uncomplicated; F17.210 Nicotine dependence, cigarettes, uncomplicated; F32.9 Major depressive disorder, single episode, unspecified; G40.909 Epilepsy, unspecified, not intractable, without status epilepticus; B18.2 Chronic viral hepatitis C; Z86.19 Personal history of other infectious and parasitic diseases; Z91.5 Personal history of self-harm; Z59.0 Homelessness
CPT/HCPCS: J0735

== ENCOUNTER 2020-02-03 15:47 | Inpatient (IN) | payer OTHER ==
[2020-02-03] MEDS ORDERED: METHOCARBAMOL 500 MG TABLET PO PRN (18:09)
[2020-02-03] MEDS ORDERED: MAG HYDROX/AL HYDROX/SIMETH 30 ML UNIT-DOSE CUP PO PRN (18:09)
[2020-02-03] MEDS ORDERED: BISMUTH SUBSALICYLATE 524 MG/30 ML UD PO PRN (18:09)
[2020-02-03] MEDS ORDERED: ACETAMINOPHEN 325 MG TABLET (FP) PO PRN ×2 (18:09)
[2020-02-03] MEDS ORDERED: MAGNESIUM CITRATE 300 ML BOTTLE PO PRN (18:09)
[2020-02-03] MEDS ORDERED: MENTHOL/PHENOL 1 EACH UD MM PRN (18:09)
[2020-02-03] MEDS ORDERED: IBUPROFEN 400 MG TABLET (FP) PO PRN (18:09)
[2020-02-03] MEDS ORDERED: MAGNESIUM HYDROX 2400MG/30ML ORAL SUSPENSION 30 ML CUP PO PRN (18:09)
[2020-02-03] MEDS ORDERED: cloNIDine HCL 0.1 MG TABLET PO PRN (18:24)
[2020-02-03] MEDS ORDERED: NALOXONE HCL 0.4 MG/ML VIAL IM PRN (18:24)
[2020-02-03] MEDS: PHENYTOIN NA EXTENDED 100 MG CAPSULE (FP) PO SCH (19:20)
[2020-02-03] MEDS: MELATONIN 5 MG TABLETS PO SCH (22:31)
[2020-02-03] MEDS: THIAMINE HCL 100 MG TABLET (FP) PO SCH (22:32)
[2020-02-03] MEDS ORDERED: METHADONE HCL 10 MG TABLET (FOR DETOX USE ONLY) PO ONE (23:00)
[2020-02-04] MEDS ORDERED: METHADONE HCL 5 MG TABLET (FOR DETOX USE ONLY) PO ONE (10:00)
[2020-02-04] MEDS: PHENYTOIN NA EXTENDED 100 MG CAPSULE (FP) PO SCH (10:24)
[2020-02-04] MEDS: PRENATAL VITAMINS W/ FOLIC ACID TABLET (FP) PO SCH (10:24)
[2020-02-04 10:40] LABS: ALBUMIN 3.1 g/dl (3.4-5.0); BILIRUBIN,TOTAL 0.3 mg/dL (0.2-1); BLOOD UREA NITROGEN 16.1 mg/dL (7-18); CALCIUM 8.6 mg/dL (8.5-10.1); CREATININE 0.8 mg/dL (0.55-1.3); POTASSIUM 3.9 mmol/L (3.5-5.1); TOT PROT 6.6 g/dl (6.4-8.2)
[2020-02-04 10:51] LABS: HEMATOCRIT 37.2 % (32.4-45.2); HEMOGLOBIN 11.8 GM/dL (10.7-15.3); MCH 27.8 pg (25.7-33.7); MCHC 31.8 g/dl (32.0-36.0); MEAN CELL VOLUME 87.4 fl (80-96); MEAN PLT VOLUME 8.5 fl (7.5-11.1); PLATELET COUNT 210 K/MM3 (134-434); RBC 4.26 M/mm3 (3.60-5.2); RDW 15.4 % (11.6-15.6)
[2020-02-04] MEDS ORDERED: PHENYTOIN NA EXTENDED 100 MG CAPSULE (FP) PO ONE (15:47)
[2020-02-04] MEDS: MELATONIN 5 MG TABLETS PO SCH (21:37)
[2020-02-04] MEDS: THIAMINE HCL 100 MG TABLET (FP) PO SCH (21:37)
[2020-02-05] MEDS ORDERED: METHADONE HCL 10 MG TABLET (FOR DETOX USE ONLY) PO ONE (10:00)
[2020-02-05] MEDS: PHENYTOIN NA EXTENDED 100 MG CAPSULE (FP) PO SCH (10:30)
[2020-02-05] MEDS: PRENATAL VITAMINS W/ FOLIC ACID TABLET (FP) PO SCH (10:33)
[2020-02-05] MEDS: MELATONIN 5 MG TABLETS PO SCH (22:41)
[2020-02-05] MEDS: THIAMINE HCL 100 MG TABLET (FP) PO SCH (22:41)
[2020-02-06] MEDS ORDERED: METHADONE HCL 5 MG TABLET (FOR DETOX USE ONLY) PO ONE (06:00)
[2020-02-06 06:58] VITALS: BP 138/72; PULSE 64; TEMP 98.2
[2020-02-06] MEDS: PRENATAL VITAMINS W/ FOLIC ACID TABLET (FP) PO SCH (10:14)
[2020-02-06] MEDS: PHENYTOIN NA EXTENDED 100 MG CAPSULE (FP) PO SCH (10:14)
== END 2020-02-06 11:09 | disposition other institution (70) | DRG 773 ==
LOC: YASAS 15:47 → Y5N DETOX 18:36
PROVIDERS: ADMIT Allergy & Immunology; ATTEND Allergy & Immunology
PROC: HZ2ZZZZ Detoxification Services for Substance Abuse Treatment (ICD-10-PCS; principal; 2020-02-03)
DX: F11.23 Opioid dependence with withdrawal (principal); F11.220 Opioid dependence with intoxication, uncomplicated; F14.20 Cocaine dependence, uncomplicated; K08.101 Complete loss of teeth, unspecified cause, class I; R63.4 Abnormal weight loss; B18.2 Chronic viral hepatitis C; G40.909 Epilepsy, unspecified, not intractable, without status epilepticus; Z86.79 Personal history of other diseases of the circulatory system; Z86.19 Personal history of other infectious and parasitic diseases; Z91.5 Personal history of self-harm
CPT/HCPCS: 36415; 80053; 80185; 85027; 86593; 86780; U0003

== ENCOUNTER 2020-02-06 11:38 | Inpatient (IN) | payer OTHER ==
[2020-02-06] MEDS ORDERED: P-EPHED 60MG/TRIPROLIDI 2.5MG TABLET PO PRN (12:06)
[2020-02-06] MEDS ORDERED: guaiFENesin 200 MG/10 ML 10 ML UNIT-DOSE CUPS PO PRN (12:06)
[2020-02-06] MEDS ORDERED: LOPERAMIDE HCL 2 MG CAPSULE PO PRN (12:06)
[2020-02-06] MEDS ORDERED: MENTHOL/PHENOL 1 EACH UD MM PRN (12:06)
[2020-02-06] MEDS ORDERED: MAGNESIUM HYDROX 2400MG/30ML ORAL SUSPENSION 30 ML CUP PO PRN (12:06)
[2020-02-06] MEDS ORDERED: NICOTINE POLACRILEX 2 MG GUM BUC PRN (12:06)
[2020-02-06] MEDS ORDERED: ACETAMINOPHEN 325 MG TABLET (FP) PO PRN (12:06)
[2020-02-06] MEDS ORDERED: MAG HYDROX/AL HYDROX/SIMETH 30 ML UNIT-DOSE CUP PO PRN (12:06)
[2020-02-06] MEDS ORDERED: MAGNESIUM CITRATE 300 ML BOTTLE PO PRN (12:06)
--- NOTE | 2020-02-06 12:06 | HP ---
[facility] Rehab Assess/Revision - Admission History Date of Admission to Rehab: 02/06/20 - Findings Detox History & Physical reviewed: Yes Concur with findings: Yes Comments/Additional Findings: Pt is a 54 y/o female who completed detox for heroin/opioid use disorder on and referred to rehab. PMHx: Brain Aneurysm, Seisure Disorder, Hep C. psych Hx:Depression Inpatient Rehab Admission - Rehab Decision to Admit Inpatient rehab admission?: Yes - Initial Determination Are CD services needed?: Yes Free of communicable disease: Yes Not in need of hospitalization: Yes - Rehab Admission Criteria Previous failed treatment: Yes Poor recovery environment: Yes Comorbidities: Yes Lacks judgement: Yes Patient is meeting Inpatient Rehab admission criteria:: Yes
--- NOTE | 2020-02-06 14:58 | PN ---
[facility] Progress Note Note: Pt demanded to start Suboxone today and reports she was on suboxone at a clinic and stopped 2-3 weeks ago. Pt was told that she just completed detox today and will be assessed in rehab. Informed pt she will meet with counselor on to set her up with a program of choice and she can restart thereafter. TERRITORY SALES CONSULTANT recorder as posted below: Others' Prescriptions Patient Name: Jeri ChirinosBirth Date: 1965 Address: [place], [place] [address]Vml: Female Rx Written Rx Dispensed Drug Quantity Days Supply Prescriber Name Payment Method Dispenser 01/02/2020 01/02/2020 buprenorphine-naloxone 8-2 mg sl film 14 14 Chery, Jess A Medicaid [email or web address] 01/02/2020 01/02/2020 buprenorphine-naloxone 4-1 mg sl film 28 14 Chery, Jess A Medicaid [email or web address] Patient Name: Jeri ChirinosBirth Date: 1965 Address: [place], [place] [address]Kuy: Female Rx Written Rx Dispensed Drug Quantity Days Supply Prescriber Name Payment Method Dispenser 12/15/2019 12/15/2019 buprenorphine-naloxone 4-1 mg sl film 30 [facility] 12/15/2019 12/15/2019 buprenorphine-naloxone 8-2 mg sl film 30 30 Joget [place] Medicaid [facility], [facility] 11/14/2019 11/14/2019 buprenorphine-naloxone 4-1 mg sl film 30 30 [facility] 11/12/2019 11/12/2019 buprenorphine-naloxone 8-2 mg sl film 30 30 [facility] Patient Name: Jeri ChirinosBirth Date: 1965 Address: [address] [address]Rxu: Female Rx Written Rx Dispensed Drug Quantity Days Supply Prescriber Name Payment Method Dispenser 10/16/2019 10/16/2019 buprenorphine-naloxone 4-1 mg sl film 60 30 [facility] [place] [email or web address] * - Drugs marked with an asterisk are compound drugs. If the compound drug is made up of more than one controlled substance, then each controlled
[2020-02-06] MEDS: hydrOXYzine PAMOATE 25 MG CAPSULE (FP) PO PRN (19:11)
[2020-02-06] MEDS: THIAMINE HCL 100 MG TABLET (FP) PO SCH (22:02)
[2020-02-06] MEDS: MELATONIN 5 MG TABLETS PO SCH (22:02)
[2020-02-07] MEDS: PHENYTOIN NA EXTENDED 100 MG CAPSULE (FP) PO SCH (09:50)
[2020-02-07] MEDS: PRENATAL VITAMINS W/ FOLIC ACID TABLET (FP) PO SCH (09:50)
[2020-02-07] MEDS: hydrOXYzine PAMOATE 25 MG CAPSULE (FP) PO PRN (09:51)
[2020-02-07] MEDS: IBUPROFEN 400 MG TABLET (FP) PO PRN (09:51)
[2020-02-07] MEDS: NICOTINE 14 MG/24 HOURS TOPICAL PATCH TD SCH (14:23)
[2020-02-07] MEDS: MELATONIN 5 MG TABLETS PO SCH (21:56)
[2020-02-07] MEDS: THIAMINE HCL 100 MG TABLET (FP) PO SCH (21:56)
[2020-02-08] MEDS: IBUPROFEN 400 MG TABLET (FP) PO PRN (06:28)
[2020-02-08] MEDS: hydrOXYzine PAMOATE 25 MG CAPSULE (FP) PO PRN ×2 (06:28→10:28)
[2020-02-08] MEDS: PHENYTOIN NA EXTENDED 100 MG CAPSULE (FP) PO SCH (10:27)
[2020-02-08] MEDS: PRENATAL VITAMINS W/ FOLIC ACID TABLET (FP) PO SCH (10:27)
[2020-02-08] MEDS: NICOTINE 14 MG/24 HOURS TOPICAL PATCH TD SCH (10:28)
[2020-02-08] MEDS: MELATONIN 5 MG TABLETS PO SCH (22:47)
[2020-02-08] MEDS: THIAMINE HCL 100 MG TABLET (FP) PO SCH (22:47)
[2020-02-09] MEDS: hydrOXYzine PAMOATE 25 MG CAPSULE (FP) PO PRN (00:49)
[2020-02-09] MEDS ORDERED: BUPRENORPHINE/NALOXONE 8 MG/2 MG FILM PACKET SL ONE (09:27)
[2020-02-09] MEDS: PRENATAL VITAMINS W/ FOLIC ACID TABLET (FP) PO SCH (09:45)
[2020-02-09] MEDS: PHENYTOIN NA EXTENDED 100 MG CAPSULE (FP) PO SCH (09:45)
[2020-02-09] MEDS: NICOTINE 14 MG/24 HOURS TOPICAL PATCH TD SCH (09:48)
--- NOTE | 2020-02-09 11:30 | PN ---
BHS COWS - Scale Resting Pulse: 1= [place] 81-100 Sweatin=Flushed/Facial Moisture Restless Observation: 1= Difficult to Sit Still Pupil Size: 0= Normal to Room Light Bone or Joint Aches: 2= Severe Diffuse Aches Runny Nose/ Eye Tearin= None GI Upset > 30mins: 0= None Tremor Observation of Outstretched Hands: 0= None Yawning Observation: 0= None Anxiety or Irritability: 2=Irritable/Anxious Goose Flesh Skin: 0=Smooth Skin COWS Score: 8 BHS Progress Note (SOAP) Subjective: Patient seen for c/o withdrawal symptoms, anxiety, chills/sweating, body aches and restlessness. Patient noted in tears, stating " I can't take this, I feel so sick. Please start my suboxone. WAREHOUSEMAN shows patient had active prescription for suboxone which was dispensed 01/02/2020 for 14 days. Patient relapsed and did not take medication for 2 weeks. Completed detox here at [facility] on 02/06/2020. Objective: 02/09/20 11:29 Vital Signs Temperature 98.9 F 02/09/20 07:01 Pulse Rate 93 H 02/09/20 07:01 Respiratory Rate 20 02/09/20 07:01 Blood Pressure 145/77 02/09/20 07:01 O2 Sat by Pulse Oximetry (%) 99 02/09/20 07:01 Laboratory Tests 02/07/20 07:25 Phenytoin 9.7 PE alert and oriented x 3 anxious, restless, tearful skin warm and moist neck supple, no jvd ext full rom, ,amb ad pj Assessment: 02/09/20 11:30 suboxone mat opoid use disorder Plan: Will restart suboxone 8mg daily, stat dose given. Then 4mg HS to total 12mg daily. Patient to follow up with Joel hernandez when discharge encourage oral fluids monitor clinically
[2020-02-09] MEDS: BUPRENORPHINE/NALOXONE 4 MG/1 MG FILM PACKET SL SCH (21:30)
[2020-02-09] MEDS: MELATONIN 5 MG TABLETS PO SCH (21:30)
[2020-02-09] MEDS: THIAMINE HCL 100 MG TABLET (FP) PO SCH (21:30)
[2020-02-09] MEDS ORDERED: BUPRENORPHINE/NALOXONE 8 MG/2 MG FILM PACKET SL SCH (22:00)
[2020-02-10] MEDS: PRENATAL VITAMINS W/ FOLIC ACID TABLET (FP) PO SCH (09:35)
[2020-02-10] MEDS: PHENYTOIN NA EXTENDED 100 MG CAPSULE (FP) PO SCH (09:36)
[2020-02-10] MEDS: NICOTINE 14 MG/24 HOURS TOPICAL PATCH TD SCH (09:36)
[2020-02-10] MEDS: BUPRENORPHINE/NALOXONE 8 MG/2 MG FILM PACKET SL SCH (09:36)
[2020-02-10] MEDS: THIAMINE HCL 100 MG TABLET (FP) PO SCH (21:38)
[2020-02-10] MEDS: MELATONIN 5 MG TABLETS PO SCH (21:38)
[2020-02-10] MEDS: BUPRENORPHINE/NALOXONE 4 MG/1 MG FILM PACKET SL SCH (21:39)
[2020-02-11] MEDS: BUPRENORPHINE/NALOXONE 8 MG/2 MG FILM PACKET SL SCH (09:40)
[2020-02-11] MEDS: PRENATAL VITAMINS W/ FOLIC ACID TABLET (FP) PO SCH (09:40)
[2020-02-11] MEDS: PHENYTOIN NA EXTENDED 100 MG CAPSULE (FP) PO SCH (09:41)
[2020-02-11] MEDS: NICOTINE 14 MG/24 HOURS TOPICAL PATCH TD SCH (09:41)
--- NOTE | 2020-02-11 15:58 | CONSULT ---
[facility] Psychiatric Consult - Data Date of interview: 02/11/20 Admission source: [facility] Identifying data: Plant Tech approached specification writer for psychiatric consultation. Patient stated, "i'm doing well. They said i can see you for a sleep medication but i am fine. I don't need to see you." Psychiatric consultation refused. Please order another psychiatric consultation if requested by patient.
[2020-02-11] MEDS: MELATONIN 5 MG TABLETS PO SCH (21:22)
[2020-02-11] MEDS: THIAMINE HCL 100 MG TABLET (FP) PO SCH (21:22)
[2020-02-11] MEDS: BUPRENORPHINE/NALOXONE 4 MG/1 MG FILM PACKET SL SCH (21:23)
[2020-02-12] MEDS: BUPRENORPHINE/NALOXONE 8 MG/2 MG FILM PACKET SL SCH (09:49)
[2020-02-12] MEDS: PHENYTOIN NA EXTENDED 100 MG CAPSULE (FP) PO SCH (09:49)
[2020-02-12] MEDS: PRENATAL VITAMINS W/ FOLIC ACID TABLET (FP) PO SCH (09:49)
[2020-02-12] MEDS: NICOTINE 14 MG/24 HOURS TOPICAL PATCH TD SCH (09:50)
[2020-02-12] MEDS: BUPRENORPHINE/NALOXONE 4 MG/1 MG FILM PACKET SL SCH (21:42)
[2020-02-12] MEDS: MELATONIN 5 MG TABLETS PO SCH (21:42)
[2020-02-12] MEDS: THIAMINE HCL 100 MG TABLET (FP) PO SCH (21:42)
[2020-02-13 07:02] VITALS: BP 95/63; PULSE 77; TEMP 97.1
--- NOTE | 2020-02-13 08:48 | DS ---
[facility] Rehab Discharge Summary - [facility] Rehab Discharge Summary Admission Date: 02/06/20 Discharge Date: 02/13/20 - History Present History: Alcohol dependence, Cocaine dependence, Opioid dependence Pertinent Past History: Seizure Disorder Hep C Brain Aneurysm - Discharge Physical Exam Vital Signs: Vital Signs Temperature 97.1 F L 02/13/20 06:11 Pulse Rate 77 02/13/20 06:11 Respiratory Rate 16 02/13/20 06:11 Blood Pressure 95/63 02/13/20 06:11 O2 Sat by Pulse Oximetry (%) 97 02/13/20 06:11 Alert o x 3 nad oob ambulating with steady gait cardiac:s1 s2,rrr lungs:ctab abdomen;soft,+bs,nt,nd extremities:no edema,skin intact. Active ROM all ext. Pertinent Admission Physical Exam Findings: Laboratory Tests 02/07/20 07:25 Phenytoin 9.7 - Treatment Discharge Condition: Discharge condition good Hospital Course: CD aftercare referral accepted Rehabilitated safely Responded well - Medication Discharge Medications: Ambulatory Orders Buprenorphine HCl/Naloxone HCl [Suboxone 4 mg/1 mg Film Packet] 1 each SL HS #7 film MDD 1 02/13/20 Buprenorphine/Naloxone [Suboxone 8Mg/2Mg Sl Film -] 1 each SL DAILY@1000 #7 film MDD 1 02/13/20 Phenytoin Sodium Extended 300 mg PO DAILY #30 cap 02/13/20 - Medication-Assisted Treatment (MAT) Medication-Assisted Treatment (MAT): Yes Medication Prescribed: Suboxone MAT Follow-up Referral: [facility] - Discharge Instructions Diet, activity, other medical instructions: Diet:Regular Activity: oob ad pj Other medical instructions:Follow up with your PCP - Diagnosis (1) Alcohol dependence Current Visit: Yes Status: Chronic Qualifiers: Substance use status: uncomplicated Qualified Code(s): F10.20 - Alcohol dependence, uncomplicated (2) Opioid dependence Current Visit: Yes Status: Chronic Qualifiers: Substance use status: uncomplicated Qualified Code(s): F11.20 - Opioid dependence, uncomplicated (3) Brain aneurysm Current Visit: Yes Status: Chronic (4) Cocaine dependence, uncomplicated Current Visit: Yes Status: Chronic (5) Hepatitis C Current Visit: Yes Status: Chronic Qualifiers: Viral hepatitis chronicity: chronic Hepatic coma status: without hepatic coma Qualified Code(s): B18.2 - Chronic viral hepatitis C (6) Nicotine dependence Current Visit: Yes Status: Chronic Qualifiers: Nicotine product type: cigarettes Substance use status: uncomplicated Qualified Code(s): F17.210 - Nicotine dependence, cigarettes, uncomplicated (7) 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 Pt is restricted to [facility] pharmacy as verified after long hours(8:40 a.m to 12:10 p.m) of unsuccessful trials to send in pt's medications to [facility] and [facility]. Pt has been instructed to call her insurance about her restricted providers' information for better service and time management.
[2020-02-13] MEDS: BUPRENORPHINE/NALOXONE 8 MG/2 MG FILM PACKET SL SCH (09:13)
[2020-02-13] MEDS: PRENATAL VITAMINS W/ FOLIC ACID TABLET (FP) PO SCH (09:13)
[2020-02-13] MEDS: NICOTINE 14 MG/24 HOURS TOPICAL PATCH TD SCH (09:13)
[2020-02-13] MEDS: PHENYTOIN NA EXTENDED 100 MG CAPSULE (FP) PO SCH (09:13)
[2020-02-13] MEDS ORDERED: PT OWN MED DRAWER 7, Y5N ONE (09:41)
== END 2020-02-13 12:23 | disposition home or self-care (01) | DRG 772 ==
LOC: YASAS 11:38 → Y3W 11:39
PROVIDERS: ADMIT Allergy & Immunology; ATTEND Allergy & Immunology
PROC: HZ42ZZZ Group Counseling for Substance Abuse Treatment, Cognitive-Behavioral (ICD-10-PCS; principal; 2020-02-06)
DX: F10.20 Alcohol dependence, uncomplicated (principal); F11.20 Opioid dependence, uncomplicated; F14.20 Cocaine dependence, uncomplicated; F17.210 Nicotine dependence, cigarettes, uncomplicated; F32.9 Major depressive disorder, single episode, unspecified; I67.1 Cerebral aneurysm, nonruptured; B18.2 Chronic viral hepatitis C; G40.909 Epilepsy, unspecified, not intractable, without status epilepticus
CPT/HCPCS: 80185

== ENCOUNTER 2020-06-28 20:03 | Inpatient (IN) | payer OTHER ==
[2020-06-28] MEDS ORDERED: METHOCARBAMOL 500 MG TABLET PO PRN (20:42)
[2020-06-28] MEDS ORDERED: IBUPROFEN 400 MG TABLET (FP) PO PRN (20:42)
[2020-06-28] MEDS ORDERED: MAGNESIUM HYDROX 2400MG/30ML ORAL SUSPENSION 30 ML CUP PO PRN (20:42)
[2020-06-28] MEDS ORDERED: BISMUTH SUBSALICYLATE 524 MG/30 ML UD PO PRN (20:42)
[2020-06-28] MEDS ORDERED: ONDANSETRON *ODT* 4 MG TABLET SL PRN (20:42)
[2020-06-28] MEDS ORDERED: MENTHOL/PHENOL 1 EACH UD MM PRN (20:42)
[2020-06-28] MEDS ORDERED: ACETAMINOPHEN 325 MG TABLET (FP) PO PRN ×2 (20:42)
[2020-06-28] MEDS ORDERED: METHADONE HCL 10 MG TABLET (FOR DETOX USE ONLY) PO ONE (20:42)
[2020-06-28] MEDS ORDERED: MAGNESIUM CITRATE 300 ML BOTTLE PO PRN (20:42)
[2020-06-28] MEDS ORDERED: cloNIDine HCL 0.1 MG TABLET PO PRN (20:42)
[2020-06-28] MEDS ORDERED: NICOTINE POLACRILEX 2 MG GUM BUC PRN (20:42)
[2020-06-28] MEDS ORDERED: MAG HYDROX/AL HYDROX/SIMETH 30 ML UNIT-DOSE CUP PO PRN (20:42)
[2020-06-28 21:11] VITALS: BMI 23.4
[2020-06-28] MEDS: THIAMINE HCL 100 MG TABLET (FP) PO SCH (21:54)
[2020-06-28] MEDS: PHENYTOIN NA EXTENDED 100 MG CAPSULE (FP) PO SCH (21:54)
[2020-06-28] MEDS: hydrOXYzine PAMOATE 25 MG CAPSULE (FP) PO SCH (22:00)
[2020-06-28] MEDS: MELATONIN 5 MG TABLETS PO SCH (22:00)
[2020-06-28] MEDS: PRENATAL VITAMINS W/ FOLIC ACID TABLET (FP) PO SCH (22:00)
[2020-06-29] MEDS: hydrOXYzine PAMOATE 25 MG CAPSULE (FP) PO SCH ×2 (07:04→09:35)
[2020-06-29 09:01] LABS: HEMATOCRIT 37.7 % (32.4-45.2); HEMOGLOBIN 12.2 GM/dL (10.7-15.3); MCH 27.5 pg (25.7-33.7); MCHC 32.3 g/dl (32.0-36.0); MEAN CELL VOLUME 85.3 fl (80-96); MEAN PLT VOLUME 8.9 fl (7.5-11.1); PLATELET COUNT 193 K/MM3 (134-434); RBC 4.42 M/mm3 (3.60-5.2); RDW 15.7 % (11.6-15.6); WHITE BLOOD COUNT 3.2 K/mm3 (4.0-10.0)
[2020-06-29 09:04] LABS: POTASSIUM 4.2 mmol/L (3.5-5.1)
[2020-06-29 09:06] LABS: CALCIUM 8.7 mg/dL (8.5-10.1)
[2020-06-29 09:09] LABS: ALBUMIN 2.9 g/dl (3.4-5.0); BLOOD UREA NITROGEN 14.1 mg/dL (7-18)
[2020-06-29 09:11] LABS: BILIRUBIN,TOTAL 0.3 mg/dL (0.2-1); TOT PROT 6.6 g/dl (6.4-8.2)
[2020-06-29] MEDS ORDERED: METHADONE HCL 5 MG TABLET (FOR DETOX USE ONLY) ONE (09:31)
[2020-06-29] MEDS ORDERED: METHADONE HCL 10 MG TABLET (FOR DETOX USE ONLY) ONE (09:31)
[2020-06-29] MEDS: NICOTINE 7 MG/24 HOURS TOPICAL PATCH TD SCH (09:35)
[2020-06-29] MEDS: PHENYTOIN NA EXTENDED 100 MG CAPSULE (FP) PO SCH (09:35)
[2020-06-29] MEDS: PRENATAL VITAMINS W/ FOLIC ACID TABLET (FP) PO SCH (09:35)
[2020-06-29] MEDS ORDERED: hydrOXYzine PAMOATE 25 MG CAPSULE (FP) PO PRN (09:58)
[2020-06-29] MEDS ORDERED: METHADONE (DETOX) 20 MG, METHADONE (DETOX) 5 MG PO ONE (10:00)
[2020-06-29] MEDS: MELATONIN 5 MG TABLETS PO SCH (22:30)
[2020-06-29] MEDS: THIAMINE HCL 100 MG TABLET (FP) PO SCH (22:31)
[2020-06-30] MEDS: NICOTINE 7 MG/24 HOURS TOPICAL PATCH TD SCH (09:57)
[2020-06-30] MEDS ORDERED: METHADONE HCL 10 MG TABLET (FOR DETOX USE ONLY) PO ONE (10:00)
[2020-06-30] MEDS: PHENYTOIN NA EXTENDED 100 MG CAPSULE (FP) PO SCH (11:57)
[2020-06-30] MEDS: PRENATAL VITAMINS W/ FOLIC ACID TABLET (FP) PO SCH (11:58)
[2020-06-30] MEDS: MELATONIN 5 MG TABLETS PO SCH (22:29)
[2020-06-30] MEDS: THIAMINE HCL 100 MG TABLET (FP) PO SCH (22:30)
[2020-07-01] MEDS ORDERED: METHADONE HCL 5 MG TABLET (FOR DETOX USE ONLY) ONE (08:41)
[2020-07-01] MEDS ORDERED: METHADONE HCL 10 MG TABLET (FOR DETOX USE ONLY) ONE (08:42)
[2020-07-01] MEDS ORDERED: METHADONE (DETOX) 10 MG, METHADONE (DETOX) 5 MG PO ONE (10:00)
[2020-07-01] MEDS: PRENATAL VITAMINS W/ FOLIC ACID TABLET (FP) PO SCH (10:14)
[2020-07-01] MEDS: PHENYTOIN NA EXTENDED 100 MG CAPSULE (FP) PO SCH (10:14)
[2020-07-01] MEDS: NICOTINE 7 MG/24 HOURS TOPICAL PATCH TD SCH (10:15)
[2020-07-01] MEDS: MELATONIN 5 MG TABLETS PO SCH (23:36)
[2020-07-01] MEDS: THIAMINE HCL 100 MG TABLET (FP) PO SCH (23:36)
[2020-07-02 09:09] VITALS: BP 129/69; PULSE 87; TEMP 97.5
[2020-07-02] MEDS ORDERED: METHADONE HCL 10 MG TABLET (FOR DETOX USE ONLY) PO ONE (10:00)
[2020-07-02] MEDS: PHENYTOIN NA EXTENDED 100 MG CAPSULE (FP) PO SCH (10:11)
[2020-07-02] MEDS: NICOTINE 7 MG/24 HOURS TOPICAL PATCH TD SCH (10:13)
[2020-07-02] MEDS: PRENATAL VITAMINS W/ FOLIC ACID TABLET (FP) PO SCH (10:13)
[2020-07-03] MEDS ORDERED: METHADONE HCL 5 MG TABLET (FOR DETOX USE ONLY) PO ONE (06:00)
== END 2020-07-02 12:40 | disposition home or self-care (01) | DRG 773 ==
LOC: YASAS 20:03 → Y6N 21:11
PROVIDERS: ADMIT Allergy & Immunology; ATTEND Allergy & Immunology
PROC: HZ2ZZZZ Detoxification Services for Substance Abuse Treatment (ICD-10-PCS; principal; 2020-06-28)
DX: F10.230 Alcohol dependence with withdrawal, uncomplicated (principal); F11.23 Opioid dependence with withdrawal; F14.20 Cocaine dependence, uncomplicated; F12.20 Cannabis dependence, uncomplicated; F17.210 Nicotine dependence, cigarettes, uncomplicated; F19.282 Other psychoactive substance dependence with psychoactive substance-induced sleep disorder; F19.24 Other psychoactive substance dependence with psychoactive substance-induced mood disorder; F41.9 Anxiety disorder, unspecified; F32.9 Major depressive disorder, single episode, unspecified; G40.909 Epilepsy, unspecified, not intractable, without status epilepticus; K00.0 Anodontia; Z62.810 Personal history of physical and sexual abuse in childhood; R63.4 Abnormal weight loss; Z68.23 Body mass index [BMI] 23.0-23.9, adult; Z86.19 Personal history of other infectious and parasitic diseases; Z91.410 Personal history of adult physical and sexual abuse; Z56.0 Unemployment, unspecified; Z59.0 Homelessness
CPT/HCPCS: 36415; 80053; 80185; 85027; 86593; 86780; C9803; U0003

== ENCOUNTER 2020-07-22 15:26 | Inpatient (IN) | payer OTHER ==
[2020-07-22 17:48] VITALS: BMI 22.8
[2020-07-22] MEDS ORDERED: MAG HYDROX/AL HYDROX/SIMETH 30 ML UNIT-DOSE CUP PO PRN (18:31)
[2020-07-22] MEDS ORDERED: NICOTINE POLACRILEX 2 MG GUM BUC PRN (18:31)
[2020-07-22] MEDS ORDERED: MAGNESIUM CITRATE 300 ML BOTTLE PO PRN (18:31)
[2020-07-22] MEDS ORDERED: METHADONE HCL 10 MG TABLET (FOR DETOX USE ONLY) PO ONE (18:31)
[2020-07-22] MEDS ORDERED: cloNIDine HCL 0.1 MG TABLET PO PRN (18:31)
[2020-07-22] MEDS ORDERED: METHOCARBAMOL 500 MG TABLET PO PRN (18:31)
[2020-07-22] MEDS ORDERED: BISMUTH SUBSALICYLATE 524 MG/30 ML UD PO PRN (18:31)
[2020-07-22] MEDS ORDERED: MAGNESIUM HYDROX 2400MG/30ML ORAL SUSPENSION 30 ML CUP PO PRN (18:31)
[2020-07-22] MEDS ORDERED: ONDANSETRON *ODT* 4 MG TABLET SL PRN (18:31)
[2020-07-22] MEDS ORDERED: MENTHOL/PHENOL 1 EACH UD MM PRN (18:31)
[2020-07-22] MEDS ORDERED: IBUPROFEN 400 MG TABLET (FP) PO PRN (18:31)
[2020-07-22] MEDS ORDERED: ACETAMINOPHEN 325 MG TABLET (FP) PO PRN ×2 (18:31)
[2020-07-22] MEDS: PHENYTOIN NA EXTENDED 100 MG CAPSULE (FP) PO SCH (19:39)
[2020-07-22] MEDS: NICOTINE 7 MG/24 HOURS TOPICAL PATCH TD SCH (19:51)
[2020-07-22] MEDS: THIAMINE HCL 100 MG TABLET (FP) PO SCH (22:31)
[2020-07-22] MEDS: hydrOXYzine PAMOATE 25 MG CAPSULE (FP) PO SCH (22:31)
[2020-07-22] MEDS: MELATONIN 5 MG TABLETS PO SCH (22:31)
[2020-07-23] MEDS: hydrOXYzine PAMOATE 25 MG CAPSULE (FP) PO SCH ×5 (06:27→22:11)
[2020-07-23] MEDS ORDERED: METHADONE HCL 5 MG TABLET (FOR DETOX USE ONLY) ONE (09:05)
[2020-07-23] MEDS ORDERED: METHADONE HCL 10 MG TABLET (FOR DETOX USE ONLY) ONE (09:05)
[2020-07-23] MEDS ORDERED: METHADONE (DETOX) 20 MG, METHADONE (DETOX) 5 MG PO ONE (10:00)
[2020-07-23] MEDS: PHENYTOIN NA EXTENDED 100 MG CAPSULE (FP) PO SCH (10:04)
[2020-07-23] MEDS: PRENATAL VITAMINS W/ FOLIC ACID TABLET (FP) PO SCH (10:05)
[2020-07-23] MEDS: NICOTINE 7 MG/24 HOURS TOPICAL PATCH TD SCH (10:05)
[2020-07-23 11:12] LABS: POTASSIUM 3.7 mmol/L (3.5-5.1)
[2020-07-23 11:16] LABS: ALBUMIN 2.9 g/dl (3.4-5.0); BLOOD UREA NITROGEN 20.4 mg/dL (7-18); CALCIUM 8.8 mg/dL (8.5-10.1)
[2020-07-23 11:21] LABS: BILIRUBIN,TOTAL 0.6 mg/dL (0.2-1); TOT PROT 6.1 g/dl (6.4-8.2)
[2020-07-23 11:25] LABS: HEMATOCRIT 35.8 % (32.4-45.2); MCH 26.5 pg (25.7-33.7); MCHC 30.7 g/dl (32.0-36.0); MEAN CELL VOLUME 86.3 fl (80-96); MEAN PLT VOLUME 8.9 fl (7.5-11.1); PLATELET COUNT 198 K/MM3 (134-434); RBC 4.15 M/mm3 (3.60-5.2); RDW 15.8 % (11.6-15.6)
[2020-07-23] MEDS: THIAMINE HCL 100 MG TABLET (FP) PO SCH (22:11)
[2020-07-23] MEDS: MELATONIN 5 MG TABLETS PO SCH (22:11)
[2020-07-24] MEDS: hydrOXYzine PAMOATE 25 MG CAPSULE (FP) PO SCH ×5 (05:47→23:27)
[2020-07-24] MEDS ORDERED: METHADONE HCL 10 MG TABLET (FOR DETOX USE ONLY) PO ONE (10:00)
[2020-07-24] MEDS: NICOTINE 7 MG/24 HOURS TOPICAL PATCH TD SCH (10:15)
[2020-07-24] MEDS: PHENYTOIN NA EXTENDED 100 MG CAPSULE (FP) PO SCH (10:15)
[2020-07-24] MEDS: PRENATAL VITAMINS W/ FOLIC ACID TABLET (FP) PO SCH (10:15)
[2020-07-24] MEDS: THIAMINE HCL 100 MG TABLET (FP) PO SCH (23:27)
[2020-07-24] MEDS: MELATONIN 5 MG TABLETS PO SCH (23:27)
[2020-07-25] MEDS: hydrOXYzine PAMOATE 25 MG CAPSULE (FP) PO SCH ×5 (05:45→22:32)
[2020-07-25] MEDS ORDERED: METHADONE HCL 5 MG TABLET (FOR DETOX USE ONLY) ONE (08:45)
[2020-07-25] MEDS ORDERED: METHADONE HCL 10 MG TABLET (FOR DETOX USE ONLY) ONE (08:45)
[2020-07-25] MEDS ORDERED: METHADONE (DETOX) 10 MG, METHADONE (DETOX) 5 MG PO ONE (10:00)
[2020-07-25] MEDS: PRENATAL VITAMINS W/ FOLIC ACID TABLET (FP) PO SCH (10:15)
[2020-07-25] MEDS: PHENYTOIN NA EXTENDED 100 MG CAPSULE (FP) PO SCH (10:16)
[2020-07-25] MEDS: NICOTINE 7 MG/24 HOURS TOPICAL PATCH TD SCH (10:16)
[2020-07-25] MEDS: THIAMINE HCL 100 MG TABLET (FP) PO SCH (22:32)
[2020-07-25] MEDS: MELATONIN 5 MG TABLETS PO SCH (22:32)
[2020-07-26] MEDS: hydrOXYzine PAMOATE 25 MG CAPSULE (FP) PO SCH ×2 (06:04→09:58)
[2020-07-26] MEDS: PHENYTOIN NA EXTENDED 100 MG CAPSULE (FP) PO SCH (09:57)
[2020-07-26] MEDS: NICOTINE 7 MG/24 HOURS TOPICAL PATCH TD SCH (09:57)
[2020-07-26] MEDS ORDERED: METHADONE HCL 10 MG TABLET (FOR DETOX USE ONLY) PO ONE (10:00)
[2020-07-26] MEDS: PRENATAL VITAMINS W/ FOLIC ACID TABLET (FP) PO SCH (10:00)
[2020-07-26] MEDS ORDERED: hydrOXYzine PAMOATE 25 MG CAPSULE (FP) PO PRN (12:00)
[2020-07-26] MEDS: MELATONIN 5 MG TABLETS PO SCH (23:08)
[2020-07-26] MEDS: THIAMINE HCL 100 MG TABLET (FP) PO SCH (23:08)
[2020-07-27] MEDS ORDERED: METHADONE HCL 5 MG TABLET (FOR DETOX USE ONLY) PO ONE (06:00)
[2020-07-27] MEDS: PHENYTOIN NA EXTENDED 100 MG CAPSULE (FP) PO SCH (10:16)
[2020-07-27] MEDS: PRENATAL VITAMINS W/ FOLIC ACID TABLET (FP) PO SCH (10:16)
[2020-07-27] MEDS: NICOTINE 7 MG/24 HOURS TOPICAL PATCH TD SCH (10:16)
[2020-07-27 13:21] VITALS: BP 116/72; PULSE 83; TEMP 97.6
== END 2020-07-27 13:47 | disposition other institution (70) | DRG 773 ==
LOC: YASAS 15:26 → Y6N 19:07
PROVIDERS: ADMIT Allergy & Immunology; ATTEND Allergy & Immunology
PROC: HZ2ZZZZ Detoxification Services for Substance Abuse Treatment (ICD-10-PCS; principal; 2020-07-22)
DX: F11.23 Opioid dependence with withdrawal (principal); F10.230 Alcohol dependence with withdrawal, uncomplicated; F14.20 Cocaine dependence, uncomplicated; F17.210 Nicotine dependence, cigarettes, uncomplicated; F19.282 Other psychoactive substance dependence with psychoactive substance-induced sleep disorder; F19.24 Other psychoactive substance dependence with psychoactive substance-induced mood disorder; F32.9 Major depressive disorder, single episode, unspecified; G40.909 Epilepsy, unspecified, not intractable, without status epilepticus; K08.109 Complete loss of teeth, unspecified cause, unspecified class; R63.4 Abnormal weight loss; B18.2 Chronic viral hepatitis C; R76.8 Other specified abnormal immunological findings in serum; R79.89 Other specified abnormal findings of blood chemistry; Z86.79 Personal history of other diseases of the circulatory system; Z87.898 Personal history of other specified conditions; Z59.0 Homelessness
CPT/HCPCS: 36415; 80053; 80185; 85027; 86593; 86780; 93005; 93010; C9803; J0735; U0003

== ENCOUNTER 2020-07-27 10:08 | Inpatient (IN) | payer OTHER ==
[2020-07-27] MEDS ORDERED: P-EPHED 60MG/TRIPROLIDI 2.5MG TABLET PO PRN (15:19)
[2020-07-27] MEDS ORDERED: ACETAMINOPHEN 325 MG TABLET (FP) PO PRN (15:19)
[2020-07-27] MEDS ORDERED: MAGNESIUM HYDROX 2400MG/30ML ORAL SUSPENSION 30 ML CUP PO PRN (15:19)
[2020-07-27] MEDS ORDERED: NICOTINE POLACRILEX 2 MG GUM BUC PRN (15:19)
[2020-07-27] MEDS ORDERED: guaiFENesin 200 MG/10 ML 10 ML UNIT-DOSE CUPS PO PRN (15:19)
[2020-07-27] MEDS ORDERED: MENTHOL/PHENOL 1 EACH UD MM PRN (15:19)
[2020-07-27] MEDS ORDERED: MAGNESIUM CITRATE 300 ML BOTTLE PO PRN (15:19)
[2020-07-27] MEDS ORDERED: IBUPROFEN 400 MG TABLET (FP) PO PRN (15:19)
[2020-07-27] MEDS ORDERED: LOPERAMIDE HCL 2 MG CAPSULE PO PRN (15:19)
[2020-07-27] MEDS ORDERED: MAG HYDROX/AL HYDROX/SIMETH 30 ML UNIT-DOSE CUP PO PRN (15:19)
[2020-07-27] MEDS: hydrOXYzine PAMOATE 25 MG CAPSULE (FP) PO PRN (16:54)
[2020-07-27] MEDS: MELATONIN 5 MG TABLETS PO SCH (21:28)
[2020-07-27] MEDS: THIAMINE HCL 100 MG TABLET (FP) PO SCH (21:28)
[2020-07-28] MEDS: PHENYTOIN NA EXTENDED 100 MG CAPSULE (FP) PO SCH (09:57)
[2020-07-28] MEDS: PRENATAL VITAMINS W/ FOLIC ACID TABLET (FP) PO SCH (09:57)
[2020-07-28] MEDS: NICOTINE 7 MG/24 HOURS TOPICAL PATCH TD SCH (09:58)
[2020-07-28] MEDS: MELATONIN 5 MG TABLETS PO SCH (21:22)
[2020-07-28] MEDS: THIAMINE HCL 100 MG TABLET (FP) PO SCH (21:22)
[2020-07-29] MEDS ORDERED: PT OWN MED DRAWER 7, Y5N ONE (08:23)
[2020-07-29] MEDS: NICOTINE 7 MG/24 HOURS TOPICAL PATCH TD SCH (09:35)
[2020-07-29] MEDS: PHENYTOIN NA EXTENDED 100 MG CAPSULE (FP) PO SCH (09:35)
[2020-07-29] MEDS: PRENATAL VITAMINS W/ FOLIC ACID TABLET (FP) PO SCH (09:36)
[2020-07-29] MEDS: hydrOXYzine PAMOATE 25 MG CAPSULE (FP) PO PRN (15:33)
[2020-07-29] MEDS ORDERED: BUPRENORPHINE/NALOXONE 2 MG/0.5 MG FILM PACKET SL ONE (16:00)
[2020-07-29] MEDS: THIAMINE HCL 100 MG TABLET (FP) PO SCH (21:15)
[2020-07-29] MEDS: MELATONIN 5 MG TABLETS PO SCH (21:15)
[2020-07-30] MEDS ORDERED: PT OWN MED DRAWER 7, Y5N ONE (08:10)
[2020-07-30] MEDS: PHENYTOIN NA EXTENDED 100 MG CAPSULE (FP) PO SCH (09:10)
[2020-07-30] MEDS: PRENATAL VITAMINS W/ FOLIC ACID TABLET (FP) PO SCH (09:11)
[2020-07-30] MEDS: NICOTINE 7 MG/24 HOURS TOPICAL PATCH TD SCH (09:11)
[2020-07-30] MEDS ORDERED: BUPRENORPHINE/NALOXONE 4 MG/1 MG FILM PACKET SL ONE (09:30)
[2020-07-30] MEDS ORDERED: BUPRENORPHINE/NALOXONE 2 MG/0.5 MG FILM PACKET SL SCH (10:00)
[2020-07-30 10:22] LABS: POTASSIUM 4.9 mmol/L (3.5-5.1)
[2020-07-30 10:26] LABS: INR 0.89 (0.83-1.09); PROTHROMBIN TIME (PATIENT) 10.8 SEC (9.7-13.0)
[2020-07-30 10:27] LABS: ALBUMIN 3.3 g/dl (3.4-5.0); BLOOD UREA NITROGEN 31.1 mg/dL (7-18); CALCIUM 8.7 mg/dL (8.5-10.1)
[2020-07-30 10:30] LABS: CREATININE 1.1 mg/dL (0.55-1.3)
[2020-07-30 10:32] LABS: BILIRUBIN,TOTAL 0.6 mg/dL (0.2-1)
[2020-07-30] MEDS: BUPRENORPHINE/NALOXONE 4 MG/1 MG FILM PACKET SL SCH (17:00)
[2020-07-30] MEDS: THIAMINE HCL 100 MG TABLET (FP) PO SCH (21:07)
[2020-07-30] MEDS: MELATONIN 5 MG TABLETS PO SCH (21:07)
[2020-07-31] MEDS: BUPRENORPHINE/NALOXONE 4 MG/1 MG FILM PACKET SL SCH ×2 (06:12→16:59)
[2020-07-31] MEDS ORDERED: PT OWN MED DRAWER 7, Y5N ONE (08:41)
[2020-07-31] MEDS: PHENYTOIN NA EXTENDED 100 MG CAPSULE (FP) PO SCH (09:35)
[2020-07-31] MEDS: NICOTINE 7 MG/24 HOURS TOPICAL PATCH TD SCH (09:36)
[2020-07-31] MEDS: PRENATAL VITAMINS W/ FOLIC ACID TABLET (FP) PO SCH (09:36)
[2020-07-31] MEDS: THIAMINE HCL 100 MG TABLET (FP) PO SCH (21:24)
[2020-07-31] MEDS: MELATONIN 5 MG TABLETS PO SCH (21:24)
[2020-08-01] MEDS: BUPRENORPHINE/NALOXONE 4 MG/1 MG FILM PACKET SL SCH ×2 (06:04→17:00)
[2020-08-01] MEDS ORDERED: PT OWN MED DRAWER 7, Y5N ONE (08:57)
[2020-08-01] MEDS: PHENYTOIN NA EXTENDED 100 MG CAPSULE (FP) PO SCH (09:39)
[2020-08-01] MEDS: PRENATAL VITAMINS W/ FOLIC ACID TABLET (FP) PO SCH (09:39)
[2020-08-01] MEDS: NICOTINE 7 MG/24 HOURS TOPICAL PATCH TD SCH (09:39)
[2020-08-01] MEDS: THIAMINE HCL 100 MG TABLET (FP) PO SCH (21:09)
[2020-08-01] MEDS: MELATONIN 5 MG TABLETS PO SCH (21:09)
[2020-08-02] MEDS: BUPRENORPHINE/NALOXONE 4 MG/1 MG FILM PACKET SL SCH (06:16)
[2020-08-02 07:05] VITALS: BP 114/65; PULSE 69; TEMP 97
[2020-08-02] MEDS ORDERED: PT OWN MED DRAWER 7, Y5N ONE (08:11)
[2020-08-02] MEDS: PHENYTOIN NA EXTENDED 100 MG CAPSULE (FP) PO SCH (09:40)
[2020-08-02] MEDS: PRENATAL VITAMINS W/ FOLIC ACID TABLET (FP) PO SCH (09:40)
[2020-08-02] MEDS: NICOTINE 7 MG/24 HOURS TOPICAL PATCH TD SCH (09:41)
== END 2020-08-02 10:25 | disposition home or self-care (01) | DRG 772 ==
LOC: YASAS 10:08 → Y3E 10:09
PROVIDERS: ADMIT Allergy & Immunology; ATTEND Allergy & Immunology
PROC: HZ42ZZZ Group Counseling for Substance Abuse Treatment, Cognitive-Behavioral (ICD-10-PCS; principal; 2020-07-27)
DX: F11.20 Opioid dependence, uncomplicated (principal); F10.20 Alcohol dependence, uncomplicated; F14.20 Cocaine dependence, uncomplicated; F17.210 Nicotine dependence, cigarettes, uncomplicated; G40.909 Epilepsy, unspecified, not intractable, without status epilepticus; K08.109 Complete loss of teeth, unspecified cause, unspecified class; B18.2 Chronic viral hepatitis C; Z86.79 Personal history of other diseases of the circulatory system; Z59.0 Homelessness
CPT/HCPCS: 36415; 80053; 80185; 85610

== ENCOUNTER 2020-10-05 13:08 | Inpatient (IN) | payer OTHER ==
[2020-10-05 14:30] VITALS: BMI 21.7
[2020-10-05] MEDS ORDERED: P-EPHED 60MG/TRIPROLIDI 2.5MG TABLET PO PRN (16:41)
[2020-10-05] MEDS ORDERED: MENTHOL/PHENOL 1 EACH UD MM PRN (16:41)
[2020-10-05] MEDS ORDERED: hydrOXYzine PAMOATE 25 MG CAPSULE (FP) PO PRN (16:41)
[2020-10-05] MEDS ORDERED: cloNIDine HCL 0.1 MG TABLET PO PRN (16:41)
[2020-10-05] MEDS ORDERED: IBUPROFEN 400 MG TABLET (FP) PO PRN (16:41)
[2020-10-05] MEDS ORDERED: guaiFENesin 200 MG/10 ML 10 ML UNIT-DOSE CUPS PO PRN (16:41)
[2020-10-05] MEDS ORDERED: METHADONE HCL 10 MG TABLET (FOR DETOX USE ONLY) PO ONE (16:41)
[2020-10-05] MEDS ORDERED: MAGNESIUM HYDROX 2400MG/30ML ORAL SUSPENSION 30 ML CUP PO PRN (16:41)
[2020-10-05] MEDS ORDERED: BISMUTH SUBSALICYLATE 524 MG/30 ML UD PO PRN (16:41)
[2020-10-05] MEDS ORDERED: METHOCARBAMOL 500 MG TABLET PO PRN (16:41)
[2020-10-05] MEDS ORDERED: MAG HYDROX/AL HYDROX/SIMETH 30 ML UNIT-DOSE CUP PO PRN (16:41)
[2020-10-05] MEDS ORDERED: MAGNESIUM CITRATE 300 ML BOTTLE PO PRN (16:41)
[2020-10-05] MEDS ORDERED: NALOXONE HCL 0.4 MG/ML VIAL IM PRN (16:41)
[2020-10-05] MEDS ORDERED: ONDANSETRON *ODT* 4 MG TABLET SL PRN (16:41)
[2020-10-05] MEDS ORDERED: ACETAMINOPHEN 325 MG TABLET (FP) PO PRN (16:41)
[2020-10-05] MEDS: PRENATAL VITAMINS W/ FOLIC ACID TABLET (FP) PO SCH (17:53)
[2020-10-05] MEDS: PHENYTOIN NA EXTENDED 100 MG CAPSULE (FP) PO SCH (17:53)
[2020-10-05] MEDS: THIAMINE HCL 100 MG TABLET (FP) PO SCH (22:34)
[2020-10-05] MEDS: MELATONIN 5 MG TABLETS PO SCH (22:34)
[2020-10-06] MEDS ORDERED: METHADONE HCL 5 MG TABLET (FOR DETOX USE ONLY) ONE (09:12)
[2020-10-06] MEDS ORDERED: METHADONE HCL 10 MG TABLET (FOR DETOX USE ONLY) ONE (09:12)
[2020-10-06] MEDS: PHENYTOIN NA EXTENDED 100 MG CAPSULE (FP) PO SCH (09:26)
[2020-10-06] MEDS: PRENATAL VITAMINS W/ FOLIC ACID TABLET (FP) PO SCH (09:26)
[2020-10-06] MEDS ORDERED: METHADONE (DETOX) 20 MG, METHADONE (DETOX) 5 MG PO ONE (10:00)
[2020-10-06 13:45] LABS: HEMATOCRIT 34.7 % (32.4-45.2); MCH 27.7 pg (25.7-33.7); MCHC 31.8 g/dl (32.0-36.0); MEAN PLT VOLUME 10.1 fl (7.5-11.1); PLATELET COUNT 152 K/MM3 (134-434); RBC 3.99 M/mm3 (3.60-5.2); RDW 15.9 % (11.6-15.6); WHITE BLOOD COUNT 3.2 K/mm3 (4.0-10.0)
[2020-10-06 13:47] LABS: POTASSIUM 4.6 mmol/L (3.5-5.1)
[2020-10-06 14:06] LABS: ALBUMIN 3.2 g/dl (3.4-5.0)
[2020-10-06 14:07] LABS: BLOOD UREA NITROGEN 18.9 mg/dL (7-18)
[2020-10-06 14:08] LABS: CALCIUM 8.7 mg/dL (8.5-10.1)
[2020-10-06 14:11] LABS: BILIRUBIN,TOTAL 0.2 mg/dL (0.2-1)
[2020-10-06 14:12] LABS: TOT PROT 6.4 g/dl (6.4-8.2)
[2020-10-06] MEDS ORDERED: PHENYTOIN NA EXTENDED 100 MG CAPSULE (FP) PO ONE (14:53)
[2020-10-06] MEDS: THIAMINE HCL 100 MG TABLET (FP) PO SCH (21:59)
[2020-10-06] MEDS: MELATONIN 5 MG TABLETS PO SCH (21:59)
[2020-10-07] MEDS: PRENATAL VITAMINS W/ FOLIC ACID TABLET (FP) PO SCH (09:42)
[2020-10-07] MEDS: PHENYTOIN NA EXTENDED 100 MG CAPSULE (FP) PO SCH (09:44)
[2020-10-07] MEDS: diazePAM 5 MG TABLET PO PRN (09:45)
[2020-10-07] MEDS ORDERED: METHADONE HCL 10 MG TABLET (FOR DETOX USE ONLY) PO ONE (10:00)
[2020-10-07] MEDS: THIAMINE HCL 100 MG TABLET (FP) PO SCH (21:50)
[2020-10-07] MEDS: MELATONIN 5 MG TABLETS PO SCH (21:50)
[2020-10-08] MEDS ORDERED: METHADONE HCL 10 MG TABLET (FOR DETOX USE ONLY) ONE (09:31)
[2020-10-08] MEDS ORDERED: METHADONE HCL 5 MG TABLET (FOR DETOX USE ONLY) ONE (09:32)
[2020-10-08] MEDS: PRENATAL VITAMINS W/ FOLIC ACID TABLET (FP) PO SCH (09:49)
[2020-10-08] MEDS: PHENYTOIN NA EXTENDED 100 MG CAPSULE (FP) PO SCH (09:50)
[2020-10-08] MEDS: diazePAM 5 MG TABLET PO PRN (09:50)
[2020-10-08] MEDS ORDERED: METHADONE (DETOX) 10 MG, METHADONE (DETOX) 5 MG PO ONE (10:00)
[2020-10-08] MEDS: THIAMINE HCL 100 MG TABLET (FP) PO SCH (22:25)
[2020-10-08] MEDS: MELATONIN 5 MG TABLETS PO SCH (22:25)
[2020-10-09] MEDS: PRENATAL VITAMINS W/ FOLIC ACID TABLET (FP) PO SCH (09:58)
[2020-10-09] MEDS: diazePAM 5 MG TABLET PO PRN (09:58)
[2020-10-09] MEDS: PHENYTOIN NA EXTENDED 100 MG CAPSULE (FP) PO SCH (09:59)
[2020-10-09] MEDS ORDERED: METHADONE HCL 10 MG TABLET (FOR DETOX USE ONLY) PO ONE (10:00)
[2020-10-09 14:33] VITALS: BP 114/60; PULSE 94; TEMP 96.2
[2020-10-10] MEDS ORDERED: METHADONE HCL 5 MG TABLET (FOR DETOX USE ONLY) PO ONE (06:00)
== END 2020-10-09 14:23 | disposition home or self-care (01) | DRG 773 ==
LOC: YASAS 13:08 → Y3N 14:47
PROVIDERS: ADMIT Allergy & Immunology; ATTEND Allergy & Immunology
PROC: HZ2ZZZZ Detoxification Services for Substance Abuse Treatment (ICD-10-PCS; principal; 2020-10-05)
DX: F11.23 Opioid dependence with withdrawal (principal); F14.20 Cocaine dependence, uncomplicated; F17.210 Nicotine dependence, cigarettes, uncomplicated; F19.24 Other psychoactive substance dependence with psychoactive substance-induced mood disorder; G40.909 Epilepsy, unspecified, not intractable, without status epilepticus; K00.0 Anodontia; R63.4 Abnormal weight loss; Z68.21 Body mass index [BMI] 21.0-21.9, adult; Z86.19 Personal history of other infectious and parasitic diseases; Z91.012 Allergy to eggs; Z59.0 Homelessness
CPT/HCPCS: 36415; 80053; 80185; 85027; 86593; 86780; C9803; U0003

== ENCOUNTER 2020-11-19 11:26 | Inpatient (IN) | payer OTHER ==
[2020-11-19 12:44] VITALS: BMI 20.4
[2020-11-19] MEDS ORDERED: NALOXONE (NARCAN) HCL 4 MG/0.1 ML SPRAY NS PRN (13:15)
[2020-11-19] MEDS ORDERED: IBUPROFEN 400 MG TABLET (FP) PO PRN (13:16)
[2020-11-19] MEDS ORDERED: NICOTINE POLACRILEX 2 MG GUM BUC PRN (13:16)
[2020-11-19] MEDS ORDERED: ACETAMINOPHEN 325 MG TABLET (FP) PO PRN ×2 (13:16)
[2020-11-19] MEDS ORDERED: cloNIDine HCL 0.1 MG TABLET PO PRN (13:16)
[2020-11-19] MEDS ORDERED: METHADONE HCL 10 MG TABLET (FOR DETOX USE ONLY) PO ONE (13:16)
[2020-11-19] MEDS ORDERED: ONDANSETRON *ODT* 4 MG TABLET SL PRN (13:16)
[2020-11-19] MEDS ORDERED: MENTHOL/PHENOL 1 EACH UD MM PRN (13:16)
[2020-11-19] MEDS ORDERED: BISMUTH SUBSALICYLATE 262 MG/15 ML BTL PO PRN (13:16)
[2020-11-19] MEDS ORDERED: MAGNESIUM CITRATE 300 ML BOTTLE PO PRN (13:16)
[2020-11-19] MEDS ORDERED: METHOCARBAMOL 500 MG TABLET PO PRN (13:16)
[2020-11-19] MEDS ORDERED: MAGNESIUM HYDROX 2400MG/30ML ORAL SUSPENSION 30 ML CUP PO PRN (13:16)
[2020-11-19] MEDS ORDERED: MAG HYDROX/AL HYDROX/SIMETH 30 ML UNIT-DOSE CUP PO PRN (13:16)
[2020-11-19] MEDS: PHENYTOIN NA EXTENDED 100 MG CAPSULE (FP) PO SCH (14:24)
[2020-11-19] MEDS: PRENATAL VITAMINS W/ FOLIC ACID TABLET (FP) PO SCH (14:25)
[2020-11-19] MEDS: NICOTINE 21 MG/24 HOURS TOPICAL PATCH TD SCH (14:27)
[2020-11-19] MEDS: hydrOXYzine PAMOATE 25 MG CAPSULE (FP) PO SCH ×3 (14:39→22:27)
[2020-11-19] MEDS: THIAMINE HCL 100 MG TABLET (FP) PO SCH (22:27)
[2020-11-19] MEDS: MELATONIN 5 MG TABLETS PO SCH (22:27)
[2020-11-20] MEDS: hydrOXYzine PAMOATE 25 MG CAPSULE (FP) PO SCH ×5 (05:58→23:17)
[2020-11-20] MEDS ORDERED: METHADONE HCL 5 MG TABLET (FOR DETOX USE ONLY) ONE (09:30)
[2020-11-20] MEDS ORDERED: METHADONE HCL 10 MG TABLET (FOR DETOX USE ONLY) ONE (09:31)
[2020-11-20] MEDS: PHENYTOIN NA EXTENDED 100 MG CAPSULE (FP) PO SCH (09:52)
[2020-11-20] MEDS: PRENATAL VITAMINS W/ FOLIC ACID TABLET (FP) PO SCH (09:52)
[2020-11-20] MEDS: NICOTINE 21 MG/24 HOURS TOPICAL PATCH TD SCH (09:52)
[2020-11-20] MEDS ORDERED: METHADONE (DETOX) 20 MG, METHADONE (DETOX) 5 MG PO ONE (10:00)
[2020-11-20 13:51] LABS: HEMATOCRIT 36.5 % (32.4-45.2); HEMOGLOBIN 11.8 GM/dL (10.7-15.3); MCH 28.2 pg (25.7-33.7); MCHC 32.4 g/dl (32.0-36.0); MEAN CELL VOLUME 87.1 fl (80-96); MEAN PLT VOLUME 9.8 fl (7.5-11.1); PLATELET COUNT 173 K/MM3 (134-434); RBC 4.19 M/mm3 (3.60-5.2); RDW 16.7 % (11.6-15.6); WHITE BLOOD COUNT 3.7 K/mm3 (4.0-10.0)
[2020-11-20 13:55] LABS: ALBUMIN 2.9 g/dl (3.4-5.0); BLOOD UREA NITROGEN 15.6 mg/dL (7-18); CALCIUM 8.6 mg/dL (8.5-10.1)
[2020-11-20 13:59] LABS: CREATININE 0.9 mg/dL (0.55-1.3)
[2020-11-20 14:01] LABS: TOT PROT 6.1 g/dl (6.4-8.2)
[2020-11-20 14:03] LABS: BILIRUBIN,TOTAL 0.5 mg/dL (0.2-1)
[2020-11-20] MEDS: THIAMINE HCL 100 MG TABLET (FP) PO SCH (23:17)
[2020-11-20] MEDS: MELATONIN 5 MG TABLETS PO SCH (23:17)
[2020-11-21] MEDS: hydrOXYzine PAMOATE 25 MG CAPSULE (FP) PO SCH ×5 (06:35→23:08)
[2020-11-21] MEDS ORDERED: METHADONE HCL 10 MG TABLET (FOR DETOX USE ONLY) PO ONE (10:00)
[2020-11-21] MEDS: PHENYTOIN NA EXTENDED 100 MG CAPSULE (FP) PO SCH (10:20)
[2020-11-21] MEDS: PRENATAL VITAMINS W/ FOLIC ACID TABLET (FP) PO SCH (10:21)
[2020-11-21] MEDS: NICOTINE 21 MG/24 HOURS TOPICAL PATCH TD SCH (10:21)
[2020-11-21] MEDS ORDERED: PHENYTOIN NA EXTENDED 100 MG CAPSULE (FP) PO ONE (10:40)
[2020-11-21] MEDS ORDERED: cloNIDine HCL 0.1 MG TABLET PO PRN (10:44)
[2020-11-21] MEDS: THIAMINE HCL 100 MG TABLET (FP) PO SCH (22:50)
[2020-11-21] MEDS: MELATONIN 5 MG TABLETS PO SCH (22:50)
[2020-11-22] MEDS: hydrOXYzine PAMOATE 25 MG CAPSULE (FP) PO SCH ×5 (06:14→23:38)
[2020-11-22] MEDS ORDERED: METHADONE HCL 5 MG TABLET (FOR DETOX USE ONLY) ONE (08:45)
[2020-11-22] MEDS ORDERED: METHADONE HCL 10 MG TABLET (FOR DETOX USE ONLY) ONE (08:46)
[2020-11-22] MEDS ORDERED: METHADONE (DETOX) 10 MG, METHADONE (DETOX) 5 MG PO ONE (10:00)
[2020-11-22 10:06] LABS: SARS-CoV-2 NAA Not Detected (Not Detected)
[2020-11-22] MEDS: PHENYTOIN NA EXTENDED 100 MG CAPSULE (FP) PO SCH (10:25)
[2020-11-22] MEDS: PRENATAL VITAMINS W/ FOLIC ACID TABLET (FP) PO SCH (10:26)
[2020-11-22] MEDS: NICOTINE 21 MG/24 HOURS TOPICAL PATCH TD SCH (10:26)
[2020-11-22] MEDS ORDERED: TRIMETHOBENZAMIDE HCL 200MG/2ML INJ IM ONE (18:24)
[2020-11-22] MEDS: THIAMINE HCL 100 MG TABLET (FP) PO SCH (23:38)
[2020-11-22] MEDS: MELATONIN 5 MG TABLETS PO SCH (23:38)
[2020-11-22] MEDS: cloNIDine HCL 0.1 MG TABLET PO PRN (23:38)
[2020-11-23] MEDS: hydrOXYzine PAMOATE 25 MG CAPSULE (FP) PO SCH ×5 (07:38→23:34)
[2020-11-23] MEDS: PHENYTOIN NA EXTENDED 100 MG CAPSULE (FP) PO SCH (09:49)
[2020-11-23] MEDS: cloNIDine HCL 0.1 MG TABLET PO PRN ×2 (09:49→23:34)
[2020-11-23] MEDS: PRENATAL VITAMINS W/ FOLIC ACID TABLET (FP) PO SCH (09:49)
[2020-11-23] MEDS: NICOTINE 21 MG/24 HOURS TOPICAL PATCH TD SCH (09:52)
[2020-11-23] MEDS ORDERED: METHADONE HCL 10 MG TABLET (FOR DETOX USE ONLY) PO ONE (10:00)
[2020-11-23] MEDS: THIAMINE HCL 100 MG TABLET (FP) PO SCH (23:34)
[2020-11-23] MEDS: MELATONIN 5 MG TABLETS PO SCH (23:34)
[2020-11-24] MEDS ORDERED: METHADONE HCL 5 MG TABLET (FOR DETOX USE ONLY) PO ONE (06:00)
[2020-11-24] MEDS: hydrOXYzine PAMOATE 25 MG CAPSULE (FP) PO SCH ×2 (07:08→10:13)
[2020-11-24] MEDS: cloNIDine HCL 0.1 MG TABLET PO PRN (07:11)
[2020-11-24 09:30] VITALS: BP 151/97; PULSE 88; TEMP 97.5
[2020-11-24] MEDS: NICOTINE 21 MG/24 HOURS TOPICAL PATCH TD SCH (10:13)
[2020-11-24] MEDS: PHENYTOIN NA EXTENDED 100 MG CAPSULE (FP) PO SCH (10:13)
[2020-11-24] MEDS: PRENATAL VITAMINS W/ FOLIC ACID TABLET (FP) PO SCH (10:13)
== END 2020-11-24 11:04 | disposition other institution (70) | DRG 773 ==
LOC: YASAS 11:26 → UNDOADMIN 13:41 → Y3N 13:41 → Y6N 13:43 → UNDOADMIN 13:43 → Y6N 22:48
PROVIDERS: ADMIT Allergy & Immunology; ATTEND Allergy & Immunology
PROC: HZ2ZZZZ Detoxification Services for Substance Abuse Treatment (ICD-10-PCS; principal; 2020-11-19)
DX: F11.23 Opioid dependence with withdrawal (principal); F14.20 Cocaine dependence, uncomplicated; F17.210 Nicotine dependence, cigarettes, uncomplicated; F19.24 Other psychoactive substance dependence with psychoactive substance-induced mood disorder; G40.909 Epilepsy, unspecified, not intractable, without status epilepticus; B18.2 Chronic viral hepatitis C; Z62.810 Personal history of physical and sexual abuse in childhood; R63.4 Abnormal weight loss; Z68.20 Body mass index [BMI] 20.0-20.9, adult; Z86.19 Personal history of other infectious and parasitic diseases; Z91.410 Personal history of adult physical and sexual abuse; Z86.79 Personal history of other diseases of the circulatory system; Z98.890 Other specified postprocedural states; Z56.0 Unemployment, unspecified; Z59.0 Homelessness
CPT/HCPCS: 36415; 80053; 80185; 85027; 86593; 86780; C9803; J0735; Q0162; U0003; U0005

== ENCOUNTER 2020-11-24 11:37 | Inpatient (IN) | payer OTHER ==
[2020-11-24] MEDS ORDERED: MAGNESIUM HYDROX 2400MG/30ML ORAL SUSPENSION 30 ML CUP PO PRN (11:50)
[2020-11-24] MEDS ORDERED: MAGNESIUM CITRATE 300 ML BOTTLE PO PRN (11:50)
[2020-11-24] MEDS ORDERED: IBUPROFEN 400 MG TABLET (FP) PO PRN (11:50)
[2020-11-24] MEDS ORDERED: ACETAMINOPHEN 325 MG TABLET (FP) PO PRN (11:50)
[2020-11-24] MEDS ORDERED: LOPERAMIDE HCL 2 MG CAPSULE PO PRN (11:50)
[2020-11-24] MEDS ORDERED: MAG HYDROX/AL HYDROX/SIMETH 30 ML UNIT-DOSE CUP PO PRN (11:50)
[2020-11-24] MEDS ORDERED: P-EPHED 60MG/TRIPROLIDI 2.5MG TABLET PO PRN (11:50)
[2020-11-24] MEDS ORDERED: guaiFENesin 200 MG/10 ML 10 ML UNIT-DOSE CUPS PO PRN (11:50)
[2020-11-24] MEDS ORDERED: MENTHOL/PHENOL 1 EACH UD MM PRN (11:50)
[2020-11-24] MEDS ORDERED: NICOTINE POLACRILEX 2 MG GUM BUC PRN (11:50)
[2020-11-24] MEDS ORDERED: hydrOXYzine PAMOATE 25 MG CAPSULE (FP) PO PRN (11:50)
[2020-11-24] MEDS: MELATONIN 5 MG TABLETS PO SCH (21:55)
[2020-11-24] MEDS: THIAMINE HCL 100 MG TABLET (FP) PO SCH (21:55)
[2020-11-25] MEDS: PRENATAL VITAMINS W/ FOLIC ACID TABLET (FP) PO SCH (10:10)
[2020-11-25] MEDS: NICOTINE 7 MG/24 HOURS TOPICAL PATCH TD SCH (10:11)
[2020-11-25] MEDS: PHENYTOIN NA EXTENDED 100 MG CAPSULE (FP) PO SCH (10:11)
[2020-11-25] MEDS ORDERED: ONDANSETRON *ODT* 4 MG TABLET SL PRN (11:32)
[2020-11-25] MEDS: METHOCARBAMOL 500 MG TABLET PO PRN (16:58)
[2020-11-25] MEDS: THIAMINE HCL 100 MG TABLET (FP) PO SCH (22:19)
[2020-11-25] MEDS: MELATONIN 5 MG TABLETS PO SCH (22:19)
[2020-11-26] MEDS: PHENYTOIN NA EXTENDED 100 MG CAPSULE (FP) PO SCH (09:17)
[2020-11-26] MEDS: METHOCARBAMOL 500 MG TABLET PO PRN (09:17)
[2020-11-26] MEDS: NICOTINE 7 MG/24 HOURS TOPICAL PATCH TD SCH (09:18)
[2020-11-26] MEDS: PRENATAL VITAMINS W/ FOLIC ACID TABLET (FP) PO SCH (09:18)
[2020-11-26] MEDS ORDERED: cloNIDine HCL 0.1 MG TABLET PO PRN (11:30)
[2020-11-26] MEDS ORDERED: BUPRENORPHINE/NALOXONE 2 MG/0.5 MG FILM PACKET SL ONE (12:15)
[2020-11-26] MEDS: MELATONIN 5 MG TABLETS PO SCH (21:14)
[2020-11-26] MEDS: BUPRENORPHINE/NALOXONE 4 MG/1 MG FILM PACKET SL SCH (21:14)
[2020-11-26] MEDS: THIAMINE HCL 100 MG TABLET (FP) PO SCH (21:14)
[2020-11-27] MEDS: NICOTINE 7 MG/24 HOURS TOPICAL PATCH TD SCH (10:06)
[2020-11-27] MEDS: BUPRENORPHINE/NALOXONE 4 MG/1 MG FILM PACKET SL SCH ×2 (10:06→21:12)
[2020-11-27] MEDS: PRENATAL VITAMINS W/ FOLIC ACID TABLET (FP) PO SCH (10:06)
[2020-11-27] MEDS: PHENYTOIN NA EXTENDED 100 MG CAPSULE (FP) PO SCH (10:06)
[2020-11-27] MEDS: METHOCARBAMOL 500 MG TABLET PO PRN (21:11)
[2020-11-27] MEDS: THIAMINE HCL 100 MG TABLET (FP) PO SCH (21:11)
[2020-11-27] MEDS: MELATONIN 5 MG TABLETS PO SCH (21:11)
[2020-11-28 06:56] VITALS: BP 101/60; TEMP 98.4
[2020-11-28 07:06] LABS: SARS-CoV-2 NAA Not Detected (Not Detected)
[2020-11-28] MEDS: PRENATAL VITAMINS W/ FOLIC ACID TABLET (FP) PO SCH (10:18)
[2020-11-28] MEDS: PHENYTOIN NA EXTENDED 100 MG CAPSULE (FP) PO SCH (10:18)
[2020-11-28] MEDS: BUPRENORPHINE/NALOXONE 4 MG/1 MG FILM PACKET SL SCH (10:19)
[2020-11-28] MEDS: NICOTINE 7 MG/24 HOURS TOPICAL PATCH TD SCH (10:19)
[2020-11-28 16:28] VITALS: PULSE 95
== END 2020-11-28 17:32 | disposition left against medical advice (07) | DRG 770 ==
LOC: YASAS 11:37 → UNDOADMIN 11:40 → Y5N 11:40
PROVIDERS: ADMIT Allergy & Immunology; ATTEND Allergy & Immunology
PROC: HZ42ZZZ Group Counseling for Substance Abuse Treatment, Cognitive-Behavioral (ICD-10-PCS; principal; 2020-11-24)
DX: F11.20 Opioid dependence, uncomplicated (principal); F10.20 Alcohol dependence, uncomplicated; F14.20 Cocaine dependence, uncomplicated; F17.210 Nicotine dependence, cigarettes, uncomplicated; F19.282 Other psychoactive substance dependence with psychoactive substance-induced sleep disorder; F19.24 Other psychoactive substance dependence with psychoactive substance-induced mood disorder; F32.9 Major depressive disorder, single episode, unspecified; G40.909 Epilepsy, unspecified, not intractable, without status epilepticus; B18.2 Chronic viral hepatitis C; Z86.79 Personal history of other diseases of the circulatory system; Z86.19 Personal history of other infectious and parasitic diseases
CPT/HCPCS: C9803; U0003; U0005

== ENCOUNTER 2021-01-17 10:56 | Inpatient (IN) | payer OTHER ==
[2021-01-17 11:37] VITALS: BMI 19.4
[2021-01-17] MEDS ORDERED: ONDANSETRON *ODT* 4 MG TABLET SL PRN (12:27)
[2021-01-17] MEDS ORDERED: ACETAMINOPHEN 325 MG TABLET (FP) PO PRN ×2 (12:27)
[2021-01-17] MEDS ORDERED: MAGNESIUM CITRATE 300 ML BOTTLE PO PRN (12:27)
[2021-01-17] MEDS ORDERED: IBUPROFEN 400 MG TABLET (FP) PO PRN (12:27)
[2021-01-17] MEDS ORDERED: MENTHOL/PHENOL 1 EACH UD MM PRN (12:27)
[2021-01-17] MEDS ORDERED: MAG HYDROX/AL HYDROX/SIMETH 30 ML UNIT-DOSE CUP PO PRN (12:27)
[2021-01-17] MEDS ORDERED: MAGNESIUM HYDROX 2400MG/30ML ORAL SUSPENSION 30 ML CUP PO PRN (12:27)
[2021-01-17] MEDS ORDERED: BISMUTH SUBSALICYLATE 524 MG/30 ML PO PRN (12:27)
[2021-01-17] MEDS ORDERED: cloNIDine HCL 0.1 MG TABLET PO PRN (12:27)
[2021-01-17] MEDS ORDERED: METHOCARBAMOL 500 MG TABLET PO PRN (12:27)
[2021-01-17] MEDS ORDERED: METHADONE HCL 10 MG TABLET (FOR DETOX USE ONLY) PO ONE (13:00)
[2021-01-17] MEDS: NICOTINE 21 MG/24 HOURS TOPICAL PATCH TD SCH (13:15)
[2021-01-17] MEDS: PHENYTOIN NA EXTENDED 100 MG CAPSULE (FP) PO SCH (13:16)
[2021-01-17] MEDS: hydrOXYzine PAMOATE 25 MG CAPSULE (FP) PO SCH ×3 (14:50→22:41)
[2021-01-17 15:58] LABS: HIV INTERPRETATION NEGATIVE (NEGATIVE)
[2021-01-17] MEDS: THIAMINE HCL 100 MG TABLET (FP) PO SCH (22:41)
[2021-01-17] MEDS: MELATONIN 5 MG TABLETS PO SCH (22:41)
[2021-01-18] MEDS: hydrOXYzine PAMOATE 25 MG CAPSULE (FP) PO SCH ×2 (05:54→10:54)
[2021-01-18] MEDS ORDERED: METHADONE HCL 5 MG TABLET (FOR DETOX USE ONLY) ONE (09:49)
[2021-01-18] MEDS ORDERED: METHADONE HCL 10 MG TABLET (FOR DETOX USE ONLY) ONE (09:49)
[2021-01-18] MEDS ORDERED: METHADONE (DETOX) 20 MG, METHADONE (DETOX) 5 MG PO ONE (10:00)
[2021-01-18] MEDS: PHENYTOIN NA EXTENDED 100 MG CAPSULE (FP) PO SCH (10:52)
[2021-01-18] MEDS: NICOTINE 21 MG/24 HOURS TOPICAL PATCH TD SCH (10:54)
[2021-01-18] MEDS: PRENATAL VITAMINS W/ FOLIC ACID TABLET (FP) PO SCH (10:54)
[2021-01-18 11:39] LABS: ALBUMIN 3.3 g/dl (3.4-5.0); BLOOD UREA NITROGEN 20.5 mg/dL (7-18); CALCIUM 8.5 mg/dL (8.5-10.1)
[2021-01-18 11:42] LABS: CREATININE 1.1 mg/dL (0.55-1.3); HEMATOCRIT 34.4 % (32.4-45.2); HEMOGLOBIN 11.3 GM/dL (10.7-15.3); MCH 28.7 pg (25.7-33.7); MEAN CELL VOLUME 86.8 fl (80-96); MEAN PLT VOLUME 8.8 fl (7.5-11.1); PLATELET COUNT 198 K/MM3 (134-434); RBC 3.96 M/mm3 (3.60-5.2); WHITE BLOOD COUNT 5.9 K/mm3 (4.0-10.0)
[2021-01-18 11:43] LABS: BILIRUBIN,TOTAL 0.8 mg/dL (0.2-1)
[2021-01-18 11:44] LABS: TOT PROT 6.7 g/dl (6.4-8.2)
[2021-01-18] MEDS ORDERED: hydrOXYzine PAMOATE 25 MG CAPSULE (FP) PO PRN (11:57)
[2021-01-18] MEDS: THIAMINE HCL 100 MG TABLET (FP) PO SCH (23:06)
[2021-01-18] MEDS: MELATONIN 5 MG TABLETS PO SCH (23:06)
[2021-01-19] MEDS: PRENATAL VITAMINS W/ FOLIC ACID TABLET (FP) PO SCH (09:55)
[2021-01-19] MEDS: PHENYTOIN NA EXTENDED 100 MG CAPSULE (FP) PO SCH (09:55)
[2021-01-19] MEDS: NICOTINE 21 MG/24 HOURS TOPICAL PATCH TD SCH (09:55)
[2021-01-19] MEDS ORDERED: METHADONE HCL 10 MG TABLET (FOR DETOX USE ONLY) PO ONE (10:00)
[2021-01-19] MEDS: MELATONIN 5 MG TABLETS PO SCH (22:39)
[2021-01-19] MEDS: THIAMINE HCL 100 MG TABLET (FP) PO SCH (22:39)
[2021-01-20] MEDS ORDERED: METHADONE HCL 10 MG TABLET (FOR DETOX USE ONLY) ONE (09:38)
[2021-01-20] MEDS ORDERED: METHADONE HCL 5 MG TABLET (FOR DETOX USE ONLY) ONE (09:39)
[2021-01-20] MEDS ORDERED: METHADONE (DETOX) 10 MG, METHADONE (DETOX) 5 MG PO ONE (10:00)
[2021-01-20] MEDS: PHENYTOIN NA EXTENDED 100 MG CAPSULE (FP) PO SCH (10:01)
[2021-01-20] MEDS: NICOTINE 21 MG/24 HOURS TOPICAL PATCH TD SCH (10:02)
[2021-01-20] MEDS: PRENATAL VITAMINS W/ FOLIC ACID TABLET (FP) PO SCH (10:02)
[2021-01-20] MEDS ORDERED: PANTOPRAZOLE 40 MG TABLET PO ONE (11:12)
[2021-01-20] MEDS ORDERED: SIMETHICONE 80 MG TAB.CHEW (FP) PO PRN (11:54)
[2021-01-20] MEDS: MELATONIN 5 MG TABLETS PO SCH (22:35)
[2021-01-20] MEDS: THIAMINE HCL 100 MG TABLET (FP) PO SCH (22:35)
[2021-01-21] MEDS ORDERED: PANTOPRAZOLE 40 MG TABLET PO SCH (10:00)
[2021-01-21] MEDS ORDERED: METHADONE HCL 10 MG TABLET (FOR DETOX USE ONLY) PO ONE (10:00)
[2021-01-21] MEDS: PHENYTOIN NA EXTENDED 100 MG CAPSULE (FP) PO SCH (10:07)
[2021-01-21] MEDS: NICOTINE 21 MG/24 HOURS TOPICAL PATCH TD SCH (10:07)
[2021-01-21] MEDS: PRENATAL VITAMINS W/ FOLIC ACID TABLET (FP) PO SCH (10:07)
[2021-01-21 17:28] VITALS: BP 127/84; PULSE 83; TEMP 97.1
[2021-01-22] MEDS ORDERED: METHADONE HCL 5 MG TABLET (FOR DETOX USE ONLY) PO ONE (06:00)
== END 2021-01-21 20:36 | disposition other institution (70) | DRG 773 ==
LOC: YASAS 10:56 → Y3N 12:39
PROVIDERS: ADMIT Allergy & Immunology; ATTEND Allergy & Immunology
PROC: HZ2ZZZZ Detoxification Services for Substance Abuse Treatment (ICD-10-PCS; principal; 2021-01-17)
DX: F11.23 Opioid dependence with withdrawal (principal); F10.230 Alcohol dependence with withdrawal, uncomplicated; F14.20 Cocaine dependence, uncomplicated; F17.210 Nicotine dependence, cigarettes, uncomplicated; F19.282 Other psychoactive substance dependence with psychoactive substance-induced sleep disorder; F19.24 Other psychoactive substance dependence with psychoactive substance-induced mood disorder; F32.9 Major depressive disorder, single episode, unspecified; G40.909 Epilepsy, unspecified, not intractable, without status epilepticus; K21.9 Gastro-esophageal reflux disease without esophagitis; B18.2 Chronic viral hepatitis C; K00.0 Anodontia; R79.89 Other specified abnormal findings of blood chemistry; R07.9 Chest pain, unspecified; R89.2 Abnormal level of other drugs, medicaments and biological substances in specimens from other organs, systems and tissues; R63.4 Abnormal weight loss; Z68.1 Body mass index [BMI] 19.9 or less, adult; Z86.59 Personal history of other mental and behavioral disorders
CPT/HCPCS: 36415; 80053; 80185; 84520; 85027; 86593; 86780; 87389; 93005; 93010; C9803; U0003; U0005

== ENCOUNTER 2021-01-21 20:07 | Inpatient (IN) | payer OTHER ==
[2021-01-21] MEDS ORDERED: MENTHOL/PHENOL 1 EACH UD MM PRN (21:49)
[2021-01-21] MEDS ORDERED: MAGNESIUM CITRATE 300 ML BOTTLE PO PRN (21:49)
[2021-01-21] MEDS ORDERED: MAGNESIUM HYDROX 2400MG/30ML ORAL SUSPENSION 30 ML CUP PO PRN (21:49)
[2021-01-21] MEDS ORDERED: IBUPROFEN 400 MG TABLET (FP) PO PRN (21:49)
[2021-01-21] MEDS ORDERED: ACETAMINOPHEN 325 MG TABLET (FP) PO PRN (21:49)
[2021-01-21] MEDS ORDERED: guaiFENesin 200 MG/10 ML 10 ML UNIT-DOSE CUPS PO PRN (21:49)
[2021-01-21] MEDS ORDERED: P-EPHED 60MG/TRIPROLIDI 2.5MG TABLET PO PRN (21:49)
[2021-01-21] MEDS ORDERED: LOPERAMIDE HCL 2 MG CAPSULE PO PRN (21:49)
[2021-01-21] MEDS ORDERED: MAG HYDROX/AL HYDROX/SIMETH 30 ML UNIT-DOSE CUP PO PRN (21:49)
[2021-01-21] MEDS: THIAMINE HCL 100 MG TABLET (FP) PO SCH (22:04)
[2021-01-21] MEDS: MELATONIN 5 MG TABLETS PO SCH (22:05)
[2021-01-22] MEDS: PRENATAL VITAMINS W/ FOLIC ACID TABLET (FP) PO SCH (10:13)
[2021-01-22] MEDS: PHENYTOIN NA EXTENDED 100 MG CAPSULE (FP) PO SCH (10:13)
[2021-01-22] MEDS: hydrOXYzine PAMOATE 25 MG CAPSULE (FP) PO PRN (11:48)
[2021-01-22] MEDS: MELATONIN 5 MG TABLETS PO SCH (21:08)
[2021-01-22] MEDS: THIAMINE HCL 100 MG TABLET (FP) PO SCH (22:45)
[2021-01-23] MEDS: hydrOXYzine PAMOATE 25 MG CAPSULE (FP) PO PRN (10:17)
[2021-01-23] MEDS: PHENYTOIN NA EXTENDED 100 MG CAPSULE (FP) PO SCH (10:17)
[2021-01-23] MEDS: PRENATAL VITAMINS W/ FOLIC ACID TABLET (FP) PO SCH (10:17)
[2021-01-23] MEDS: THIAMINE HCL 100 MG TABLET (FP) PO SCH (22:30)
[2021-01-23] MEDS: MELATONIN 5 MG TABLETS PO SCH (22:30)
[2021-01-24] MEDS: PHENYTOIN NA EXTENDED 100 MG CAPSULE (FP) PO SCH (10:39)
[2021-01-24] MEDS: PRENATAL VITAMINS W/ FOLIC ACID TABLET (FP) PO SCH (10:39)
[2021-01-24] MEDS ORDERED: ONDANSETRON *ODT* 4 MG TABLET SL PRN (10:56)
[2021-01-24] MEDS ORDERED: BUPRENORPHINE/NALOXONE 2 MG/0.5 MG FILM PACKET SL ONE ×2 (14:21→22:00)
[2021-01-24] MEDS: THIAMINE HCL 100 MG TABLET (FP) PO SCH (21:26)
[2021-01-24] MEDS: MELATONIN 5 MG TABLETS PO SCH (21:26)
[2021-01-25] MEDS: PRENATAL VITAMINS W/ FOLIC ACID TABLET (FP) PO SCH (10:13)
[2021-01-25] MEDS: PHENYTOIN NA EXTENDED 100 MG CAPSULE (FP) PO SCH (10:13)
[2021-01-25] MEDS: BUPRENORPHINE/NALOXONE 4 MG/1 MG FILM PACKET SL SCH (10:14)
[2021-01-25] MEDS: THIAMINE HCL 100 MG TABLET (FP) PO SCH (21:20)
[2021-01-25] MEDS: MELATONIN 5 MG TABLETS PO SCH (21:20)
[2021-01-26] MEDS: PRENATAL VITAMINS W/ FOLIC ACID TABLET (FP) PO SCH (09:52)
[2021-01-26] MEDS: BUPRENORPHINE/NALOXONE 4 MG/1 MG FILM PACKET SL SCH (09:52)
[2021-01-26] MEDS: PHENYTOIN NA EXTENDED 100 MG CAPSULE (FP) PO SCH (09:53)
[2021-01-26] MEDS ORDERED: BUPRENORPHINE/NALOXONE 4 MG/1 MG FILM PACKET SL SCH ×2 (20:00→22:00)
[2021-01-26] MEDS: MELATONIN 5 MG TABLETS PO SCH (21:10)
[2021-01-26] MEDS: THIAMINE HCL 100 MG TABLET (FP) PO SCH (21:11)
[2021-01-27 07:23] VITALS: BP 98/59; PULSE 70; TEMP 98.7
== END 2021-01-27 07:18 | disposition left against medical advice (07) | DRG 770 ==
LOC: YASAS 20:07 → Y3W 20:15
PROVIDERS: ADMIT Allergy & Immunology; ATTEND Allergy & Immunology
PROC: HZ42ZZZ Group Counseling for Substance Abuse Treatment, Cognitive-Behavioral (ICD-10-PCS; principal; 2021-01-21)
DX: F10.20 Alcohol dependence, uncomplicated (principal); F11.20 Opioid dependence, uncomplicated; F14.20 Cocaine dependence, uncomplicated; F17.213 Nicotine dependence, cigarettes, with withdrawal; K21.9 Gastro-esophageal reflux disease without esophagitis; G40.909 Epilepsy, unspecified, not intractable, without status epilepticus; B18.2 Chronic viral hepatitis C; R63.4 Abnormal weight loss; Z68.1 Body mass index [BMI] 19.9 or less, adult; Z86.19 Personal history of other infectious and parasitic diseases; Z59.0 Homelessness
CPT/HCPCS: 80185

== ENCOUNTER 2021-04-05 11:55 | Inpatient (IN) | payer OTHER ==
[2021-04-05] MEDS ORDERED: ONDANSETRON *ODT* 4 MG TABLET SL PRN (15:58)
[2021-04-05] MEDS ORDERED: diazePAM 5 MG TABLET PO PRN (15:58)
[2021-04-05] MEDS ORDERED: MAGNESIUM HYDROX 2400MG/30ML ORAL SUSPENSION 30 ML CUP PO PRN (15:58)
[2021-04-05] MEDS ORDERED: MAG HYDROX/AL HYDROX/SIMETH 30 ML UNIT-DOSE CUP PO PRN (15:58)
[2021-04-05] MEDS ORDERED: NICOTINE 10 MG CARTRIDGE (INHALER) IH PRN (15:58)
[2021-04-05] MEDS ORDERED: BISMUTH SUBSALICYLATE 524 MG/30 ML PO PRN (15:58)
[2021-04-05] MEDS ORDERED: METHOCARBAMOL 500 MG TABLET PO PRN (15:58)
[2021-04-05] MEDS ORDERED: methaDONE HCL 10 MG TABLET (FOR DETOX USE ONLY) PO ONE (15:58)
[2021-04-05] MEDS ORDERED: ACETAMINOPHEN 325 MG TABLET (FP) PO PRN ×2 (15:58)
[2021-04-05] MEDS ORDERED: IBUPROFEN 400 MG TABLET (FP) PO PRN (15:58)
[2021-04-05] MEDS ORDERED: hydrOXYzine PAMOATE 25 MG CAPSULE (FP) PO PRN (15:58)
[2021-04-05] MEDS ORDERED: MENTHOL/PHENOL 1 EACH UD MM PRN (15:58)
[2021-04-05] MEDS ORDERED: cloNIDine HCL 0.1 MG TABLET PO PRN (15:58)
[2021-04-05] MEDS ORDERED: MAGNESIUM CITRATE 300 ML BOTTLE PO PRN (15:58)
[2021-04-05] MEDS ORDERED: methaDONE HCL 10 MG TABLET (FOR DETOX USE ONLY) ONE (18:54)
[2021-04-05] MEDS: THIAMINE HCL 100 MG TABLET (FP) PO SCH (23:12)
[2021-04-05] MEDS: diazePAM 5 MG TABLET PO SCH (23:13)
[2021-04-05] MEDS: MELATONIN 5 MG TABLETS PO SCH (23:13)
[2021-04-06] MEDS: diazePAM 5 MG TABLET PO SCH ×4 (06:14→23:08)
[2021-04-06] MEDS ORDERED: methaDONE HCL 10 MG TABLET (FOR DETOX USE ONLY) ONE (08:45)
[2021-04-06] MEDS: PRENATAL VITAMINS W/ FOLIC ACID TABLET (FP) PO SCH (10:50)
[2021-04-06 11:10] LABS: HEMATOCRIT 37.2 % (32.4-45.2); MCH 28.1 pg (25.7-33.7); MCHC 32.3 g/dl (32.0-36.0); MEAN PLT VOLUME 8.9 fl (7.5-11.1); PLATELET COUNT 174 10^3/uL (134-434); RBC 4.27 M/mm3 (3.60-5.2); RDW 15.2 % (11.6-15.6); WHITE BLOOD COUNT 3.1 K/mm3 (4.0-10.0)
[2021-04-06 11:17] LABS: CALCIUM 8.3 mg/dL (8.5-10.1)
[2021-04-06 11:18] LABS: ALBUMIN 2.8 g/dl (3.4-5.0); BLOOD UREA NITROGEN 15.7 mg/dL (7-18)
[2021-04-06 11:21] LABS: CREATININE 0.9 mg/dL (0.55-1.3)
[2021-04-06 11:23] LABS: BILIRUBIN,TOTAL 0.5 mg/dL (0.2-1); TOT PROT 6.1 g/dl (6.4-8.2)
[2021-04-06] MEDS: THIAMINE HCL 100 MG TABLET (FP) PO SCH (23:08)
[2021-04-06] MEDS: MELATONIN 5 MG TABLETS PO SCH (23:08)
[2021-04-07] MEDS: diazePAM 5 MG TABLET PO SCH ×3 (05:39→23:23)
[2021-04-07] MEDS ORDERED: methaDONE HCL 10 MG TABLET (FOR DETOX USE ONLY) PO ONE (10:00)
[2021-04-07] MEDS: PRENATAL VITAMINS W/ FOLIC ACID TABLET (FP) PO SCH (10:06)
[2021-04-07] MEDS ORDERED: PHENYTOIN NA EXTENDED 100 MG CAPSULE (FP) PO SCH (14:00)
[2021-04-07] MEDS ORDERED: PHENYTOIN NA EXTENDED 100 MG CAPSULE (FP) PO ONE ×2 (16:00→18:00)
[2021-04-07] MEDS: THIAMINE HCL 100 MG TABLET (FP) PO SCH (23:23)
[2021-04-07] MEDS: MELATONIN 5 MG TABLETS PO SCH (23:23)
[2021-04-08] MEDS: diazePAM 5 MG TABLET PO SCH ×2 (05:17→18:14)
[2021-04-08] MEDS ORDERED: methaDONE HCL 10 MG TABLET (FOR DETOX USE ONLY) ONE (09:23)
[2021-04-08] MEDS: PRENATAL VITAMINS W/ FOLIC ACID TABLET (FP) PO SCH (10:34)
[2021-04-08] MEDS: PHENYTOIN NA EXTENDED 100 MG CAPSULE (FP) PO SCH ×2 (13:47→22:35)
[2021-04-08] MEDS ORDERED: PHENYTOIN NA EXTENDED 100 MG CAPSULE (FP) PO ONE (14:00)
[2021-04-08] MEDS: THIAMINE HCL 100 MG TABLET (FP) PO SCH (22:35)
[2021-04-08] MEDS: MELATONIN 5 MG TABLETS PO SCH (22:35)
[2021-04-09] MEDS: PHENYTOIN NA EXTENDED 100 MG CAPSULE (FP) PO SCH ×2 (05:22→13:25)
[2021-04-09] MEDS ORDERED: diazePAM 5 MG TABLET PO ONE (06:00)
[2021-04-09] MEDS ORDERED: methaDONE HCL 10 MG TABLET (FOR DETOX USE ONLY) PO ONE (10:00)
[2021-04-09] MEDS: PRENATAL VITAMINS W/ FOLIC ACID TABLET (FP) PO SCH (10:24)
[2021-04-09 11:55] VITALS: BP 134/77; PULSE 60; TEMP 97.8
== END 2021-04-09 13:51 | disposition home or self-care (01) | DRG 773 ==
LOC: YASAS 11:55 → Y3N 18:07
PROVIDERS: ADMIT Allergy & Immunology; ATTEND Allergy & Immunology
PROC: HZ2ZZZZ Detoxification Services for Substance Abuse Treatment (ICD-10-PCS; principal; 2021-04-05)
DX: F11.23 Opioid dependence with withdrawal (principal); F10.10 Alcohol abuse, uncomplicated; F14.20 Cocaine dependence, uncomplicated; F17.210 Nicotine dependence, cigarettes, uncomplicated; G40.909 Epilepsy, unspecified, not intractable, without status epilepticus; K21.9 Gastro-esophageal reflux disease without esophagitis; B18.2 Chronic viral hepatitis C; E86.0 Dehydration; R63.4 Abnormal weight loss; Z68.20 Body mass index [BMI] 20.0-20.9, adult; Z86.19 Personal history of other infectious and parasitic diseases; Z59.0 Homelessness
CPT/HCPCS: 36415; 80053; 80185; 85027; 86593; 86780; C9803; J0735; U0003; U0005

== ENCOUNTER 2021-07-02 06:39 | Inpatient (IN) | payer OTHER ==
[2021-07-02 07:09] VITALS: BMI 18.3
[2021-07-02] MEDS ORDERED: cloNIDine HCL 0.1 MG TABLET PO PRN (08:44)
[2021-07-02] MEDS ORDERED: diazePAM 5 MG TABLET PO PRN (08:44)
[2021-07-02] MEDS ORDERED: MAG HYDROX/AL HYDROX/SIMETH 30 ML UNIT-DOSE CUP PO PRN (08:45)
[2021-07-02] MEDS ORDERED: MENTHOL/PHENOL 1 EACH UD MM PRN (08:45)
[2021-07-02] MEDS ORDERED: MAGNESIUM CITRATE 300 ML BOTTLE PO PRN (08:45)
[2021-07-02] MEDS ORDERED: IBUPROFEN 400 MG TABLET (FP) PO PRN (08:45)
[2021-07-02] MEDS ORDERED: ONDANSETRON *ODT* 4 MG TABLET SL PRN (08:45)
[2021-07-02] MEDS ORDERED: NICOTINE 10 MG CARTRIDGE (INHALER) IH PRN (08:45)
[2021-07-02] MEDS ORDERED: BISMUTH SUBSALICYLATE 524 MG/30 ML PO PRN (08:45)
[2021-07-02] MEDS ORDERED: ACETAMINOPHEN 325 MG TABLET (FP) PO PRN ×2 (08:45)
[2021-07-02] MEDS ORDERED: MAGNESIUM HYDROX 2400MG/30ML ORAL SUSPENSION 30 ML CUP PO PRN (08:45)
[2021-07-02] MEDS ORDERED: cloNIDine HCL 0.1 MG TABLET PO ONE (09:10)
[2021-07-02] MEDS ORDERED: methaDONE HCL 10 MG TABLET (FOR DETOX USE ONLY) PO ONE (09:30)
[2021-07-02] MEDS: hydrOXYzine PAMOATE 25 MG CAPSULE (FP) PO SCH ×4 (10:18→22:38)
[2021-07-02] MEDS: PRENATAL VITAMINS W/ FOLIC ACID TABLET (FP) PO SCH (10:18)
[2021-07-02] MEDS: diazePAM 5 MG TABLET PO SCH ×3 (10:21→22:40)
[2021-07-02] MEDS: MELATONIN 5 MG TABLETS PO SCH (22:38)
[2021-07-02] MEDS: THIAMINE HCL 100 MG TABLET (FP) PO SCH (22:38)
[2021-07-03] MEDS: diazePAM 5 MG TABLET PO SCH ×4 (05:49→22:06)
[2021-07-03] MEDS: hydrOXYzine PAMOATE 25 MG CAPSULE (FP) PO SCH ×5 (05:49→22:06)
[2021-07-03] MEDS ORDERED: methaDONE HCL 10 MG TABLET (FOR DETOX USE ONLY) ONE (10:04)
[2021-07-03] MEDS: METHOCARBAMOL 500 MG TABLET PO PRN (10:28)
[2021-07-03] MEDS: PRENATAL VITAMINS W/ FOLIC ACID TABLET (FP) PO SCH (10:28)
[2021-07-03] MEDS: MELATONIN 5 MG TABLETS PO SCH (22:06)
[2021-07-03] MEDS: THIAMINE HCL 100 MG TABLET (FP) PO SCH (22:06)
[2021-07-04] MEDS: hydrOXYzine PAMOATE 25 MG CAPSULE (FP) PO SCH ×5 (06:34→22:23)
[2021-07-04] MEDS: diazePAM 5 MG TABLET PO SCH ×3 (06:34→22:22)
[2021-07-04] MEDS ORDERED: methaDONE HCL 10 MG TABLET (FOR DETOX USE ONLY) PO ONE (10:00)
[2021-07-04] MEDS: PRENATAL VITAMINS W/ FOLIC ACID TABLET (FP) PO SCH (10:35)
[2021-07-04 13:28] LABS: HEMATOCRIT 33.8 % (32.4-45.2); HEMOGLOBIN 10.9 GM/dL (10.7-15.3); MCH 28.5 pg (25.7-33.7); MCHC 32.3 g/dl (32.0-36.0); MEAN CELL VOLUME 88.1 fl (80-96); MEAN PLT VOLUME 9.5 fl (7.5-11.1); PLATELET COUNT 159 10^3/uL (134-434); RBC 3.84 M/mm3 (3.60-5.2); RDW 16.5 % (11.6-15.6); WHITE BLOOD COUNT 3.2 K/mm3 (4.0-10.0)
[2021-07-04 13:44] LABS: BLOOD UREA NITROGEN 26.4 mg/dL (7-18); CALCIUM 8.2 mg/dL (8.5-10.1)
[2021-07-04 13:48] LABS: BILIRUBIN,TOTAL 0.2 mg/dL (0.2-1); CREATININE 1.3 mg/dL (0.55-1.3); TOT PROT 5.8 g/dl (6.4-8.2)
[2021-07-04 13:51] LABS: ALBUMIN 2.6 g/dl (3.4-5.0)
[2021-07-04] MEDS ORDERED: PHENYTOIN NA EXTENDED 100 MG CAPSULE (FP) PO SCH (15:30)
[2021-07-04] MEDS ORDERED: PHENYTOIN NA EXTENDED 100 MG CAPSULE (FP) PO ONE ×2 (15:33→18:00)
[2021-07-04] MEDS: THIAMINE HCL 100 MG TABLET (FP) PO SCH (22:23)
[2021-07-04] MEDS: MELATONIN 5 MG TABLETS PO SCH (22:23)
[2021-07-05] MEDS: hydrOXYzine PAMOATE 25 MG CAPSULE (FP) PO SCH ×5 (05:48→22:26)
[2021-07-05] MEDS: diazePAM 5 MG TABLET PO SCH ×2 (05:49→18:08)
[2021-07-05] MEDS ORDERED: methaDONE HCL 10 MG TABLET (FOR DETOX USE ONLY) ONE (09:54)
[2021-07-05] MEDS: PHENYTOIN NA EXTENDED 100 MG CAPSULE (FP) PO SCH (10:13)
[2021-07-05] MEDS: PRENATAL VITAMINS W/ FOLIC ACID TABLET (FP) PO SCH (10:13)
[2021-07-05] MEDS: METHOCARBAMOL 500 MG TABLET PO PRN (10:13)
[2021-07-05 19:25] LABS: BLOOD UREA NITROGEN 28.8 mg/dL (7-18); CALCIUM 8.4 mg/dL (8.5-10.1); PHOSPHOROUS 3.4 mg/dL (2.5-4.9)
[2021-07-05 20:51] LABS: ALBUMIN 2.9 g/dl (3.4-5.0)
[2021-07-05] MEDS: THIAMINE HCL 100 MG TABLET (FP) PO SCH (22:26)
[2021-07-05] MEDS: MELATONIN 5 MG TABLETS PO SCH (22:26)
[2021-07-06] MEDS ORDERED: diazePAM 5 MG TABLET PO ONE (06:00)
[2021-07-06] MEDS: hydrOXYzine PAMOATE 25 MG CAPSULE (FP) PO SCH ×5 (07:00→22:39)
[2021-07-06] MEDS ORDERED: methaDONE HCL 10 MG TABLET (FOR DETOX USE ONLY) PO ONE (10:00)
[2021-07-06] MEDS: PHENYTOIN NA EXTENDED 100 MG CAPSULE (FP) PO SCH (10:57)
[2021-07-06] MEDS: PRENATAL VITAMINS W/ FOLIC ACID TABLET (FP) PO SCH (10:58)
[2021-07-06] MEDS: MELATONIN 5 MG TABLETS PO SCH (22:39)
[2021-07-06] MEDS: THIAMINE HCL 100 MG TABLET (FP) PO SCH (22:39)
[2021-07-07] MEDS: hydrOXYzine PAMOATE 25 MG CAPSULE (FP) PO SCH ×5 (06:21→22:49)
[2021-07-07] MEDS: PRENATAL VITAMINS W/ FOLIC ACID TABLET (FP) PO SCH (10:31)
[2021-07-07] MEDS: METHOCARBAMOL 500 MG TABLET PO PRN (10:31)
[2021-07-07] MEDS: PHENYTOIN NA EXTENDED 100 MG CAPSULE (FP) PO SCH (10:31)
[2021-07-07] MEDS: MELATONIN 5 MG TABLETS PO SCH (22:49)
[2021-07-07] MEDS: THIAMINE HCL 100 MG TABLET (FP) PO SCH (22:50)
[2021-07-08] MEDS: hydrOXYzine PAMOATE 25 MG CAPSULE (FP) PO SCH (05:41)
[2021-07-08 05:54] VITALS: BP 156/75; PULSE 76; TEMP 98.9
[2021-07-08] MEDS: PRENATAL VITAMINS W/ FOLIC ACID TABLET (FP) PO SCH (10:26)
[2021-07-08] MEDS: PHENYTOIN NA EXTENDED 100 MG CAPSULE (FP) PO SCH (10:26)
== END 2021-07-08 10:52 | disposition other institution (70) | DRG 773 ==
LOC: YASAS 06:39 → Y6N 09:10
PROVIDERS: ADMIT Allergy & Immunology; ATTEND Allergy & Immunology
PROC: HZ2ZZZZ Detoxification Services for Substance Abuse Treatment (ICD-10-PCS; principal; 2021-07-02)
DX: F11.23 Opioid dependence with withdrawal (principal); F10.230 Alcohol dependence with withdrawal, uncomplicated; F14.20 Cocaine dependence, uncomplicated; F17.210 Nicotine dependence, cigarettes, uncomplicated; F51.05 Insomnia due to other mental disorder; G40.909 Epilepsy, unspecified, not intractable, without status epilepticus; K00.0 Anodontia; R63.4 Abnormal weight loss; Z68.1 Body mass index [BMI] 19.9 or less, adult; Z86.19 Personal history of other infectious and parasitic diseases; Z98.890 Other specified postprocedural states
CPT/HCPCS: 36415; 70450-TC; 71045-TC-FY; 74176-TC; 80053; 80069; 80185; 82550; 82553; 82962; 83690; 84484; 85027; 86593; 86780; 93005; 93010; C9803; J0131; J0735; U0003; U0005

== ENCOUNTER 2022-06-20 15:50 | Inpatient (IN) | payer OTHER ==
[2022-06-20 16:39] VITALS: BMI 19.8
[2022-06-20] MEDS ORDERED: MAG HYDROX/AL HYDROX/SIMETH 30 ML UNIT-DOSE CUP PO PRN (17:51)
[2022-06-20] MEDS ORDERED: BISMUTH SUBSALICYLATE 524 MG/30 ML PO PRN (17:51)
[2022-06-20] MEDS ORDERED: ONDANSETRON *ODT* 4 MG TABLET SL PRN (17:51)
[2022-06-20] MEDS ORDERED: NICOTINE POLACRILEX 2 MG GUM BUC PRN (17:51)
[2022-06-20] MEDS ORDERED: LOPERAMIDE HCL 2 MG CAPSULE PO PRN (17:51)
[2022-06-20] MEDS ORDERED: NALOXONE HCL (KLOXXADO) 8 MG SPRAY NS PRN (17:51)
[2022-06-20] MEDS ORDERED: ACETAMINOPHEN 325 MG TABLET (FP) PO PRN ×2 (17:51)
[2022-06-20] MEDS ORDERED: IBUPROFEN 400 MG TABLET (FP) PO PRN (17:51)
[2022-06-20] MEDS ORDERED: NICOTINE 10 MG CARTRIDGE (INHALER) IH PRN (17:51)
[2022-06-20] MEDS ORDERED: BENZOCAINE/MENTHOL (CHLORASEPTIC ) LOZENGE MM PRN (17:51)
[2022-06-20] MEDS ORDERED: IBUPROFEN 600 MG TABLET (FP) PO PRN (17:51)
[2022-06-20] MEDS ORDERED: DICYCLOMINE HCL 10 MG CAPSULE PO PRN (17:51)
[2022-06-20] MEDS ORDERED: MAGNESIUM HYDROX 2400MG/30ML ORAL SUSPENSION 30 ML CUP PO PRN (17:51)
[2022-06-20] MEDS ORDERED: MAGNESIUM CITRATE 300 ML BOTTLE PO PRN (17:51)
[2022-06-20] MEDS ORDERED: amLODIPine BESYLATE 5 MG TABLET (FP) PO ONE (19:30)
[2022-06-20] MEDS ORDERED: amLODIPine BESYLATE 5 MG TABLET (FP) PO SCH (19:30)
[2022-06-20] MEDS: hydrOXYzine PAMOATE 25 MG CAPSULE (FP) PO PRN (19:35)
[2022-06-20] MEDS ORDERED: cloNIDine HCL 0.1 MG TABLET PO ONE (21:57)
[2022-06-20] MEDS: MELATONIN 5 MG TABLETS PO SCH (22:16)
[2022-06-20] MEDS: THIAMINE HCL 100 MG TABLET (FP) PO SCH (22:16)
[2022-06-20] MEDS: METHOCARBAMOL 500 MG TABLET PO PRN (22:17)
[2022-06-21] MEDS: METHOCARBAMOL 500 MG TABLET PO PRN (04:51)
[2022-06-21] MEDS: hydrOXYzine PAMOATE 25 MG CAPSULE (FP) PO PRN (04:51)
[2022-06-21] MEDS ORDERED: methaDONE HCL 10 MG TABLET (FOR DETOX USE ONLY) PO ONE (10:00)
[2022-06-21] MEDS: PHENYTOIN NA EXTENDED 100 MG CAPSULE (FP) PO SCH (10:39)
[2022-06-21] MEDS: cloNIDine HCL 0.1 MG TABLET PO PRN (10:39)
[2022-06-21] MEDS: PRENATAL VITAMINS W/ FOLIC ACID TABLET (FP) PO SCH (10:40)
[2022-06-21] MEDS ORDERED: P-EPHED 60MG/TRIPROLIDI 2.5MG TABLET PO PRN (12:15)
[2022-06-21 15:39] LABS: HEMATOCRIT 42.7 % (32.4-45.2); HEMOGLOBIN 13.5 GM/dL (10.7-15.3); MCH 27.5 pg (25.7-33.7); MCHC 31.5 g/dl (32.0-36.0); MEAN CELL VOLUME 87.1 fl (80-96); MEAN PLT VOLUME 8.9 fl (7.5-11.1); PLATELET COUNT 211 10^3/uL (134-434); RBC 4.91 M/mm3 (3.60-5.2); RDW 16.4 % (11.6-15.6); WHITE BLOOD COUNT 2.6 K/mm3 (4.0-10.0)
[2022-06-21 16:11] LABS: BLOOD UREA NITROGEN 14.7 mg/dL (7-18); CALCIUM 8.8 mg/dL (8.5-10.1)
[2022-06-21 16:12] LABS: ALBUMIN 3.2 g/dl (3.4-5.0)
[2022-06-21 16:15] LABS: BILIRUBIN,TOTAL 0.4 mg/dL (0.2-1); CREATININE 0.8 mg/dL (0.55-1.3); TOT PROT 7.4 g/dl (6.4-8.2)
[2022-06-21] MEDS: THIAMINE HCL 100 MG TABLET (FP) PO SCH (22:27)
[2022-06-21] MEDS: MELATONIN 5 MG TABLETS PO SCH (22:27)
[2022-06-22] MEDS: PHENYTOIN NA EXTENDED 100 MG CAPSULE (FP) PO SCH (10:22)
[2022-06-22] MEDS: METHOCARBAMOL 500 MG TABLET PO PRN (10:22)
[2022-06-22] MEDS: cloNIDine HCL 0.1 MG TABLET PO PRN (10:22)
[2022-06-22] MEDS: PRENATAL VITAMINS W/ FOLIC ACID TABLET (FP) PO SCH (10:23)
[2022-06-22] MEDS: amLODIPine BESYLATE 5 MG TABLET (FP) PO SCH (10:24)
[2022-06-22] MEDS: THIAMINE HCL 100 MG TABLET (FP) PO SCH (21:10)
[2022-06-22] MEDS: MELATONIN 5 MG TABLETS PO SCH (21:10)
[2022-06-23] MEDS ORDERED: methaDONE HCL 10 MG TABLET (FOR DETOX USE ONLY) PO ONE (10:00)
[2022-06-23] MEDS: PHENYTOIN NA EXTENDED 100 MG CAPSULE (FP) PO SCH (10:11)
[2022-06-23] MEDS: cloNIDine HCL 0.1 MG TABLET PO PRN (10:11)
[2022-06-23] MEDS: METHOCARBAMOL 500 MG TABLET PO PRN (10:11)
[2022-06-23] MEDS: amLODIPine BESYLATE 5 MG TABLET (FP) PO SCH (10:11)
[2022-06-23] MEDS: PRENATAL VITAMINS W/ FOLIC ACID TABLET (FP) PO SCH (10:12)
[2022-06-23] MEDS: THIAMINE HCL 100 MG TABLET (FP) PO SCH (23:00)
[2022-06-23] MEDS: MELATONIN 5 MG TABLETS PO SCH (23:00)
[2022-06-24 09:40] VITALS: BP 171/100; PULSE 75; RESP 16; TEMP 97.1
[2022-06-24] MEDS: PRENATAL VITAMINS W/ FOLIC ACID TABLET (FP) PO SCH (10:09)
[2022-06-24] MEDS: amLODIPine BESYLATE 5 MG TABLET (FP) PO SCH (10:09)
[2022-06-24] MEDS: METHOCARBAMOL 500 MG TABLET PO PRN (10:09)
[2022-06-24] MEDS: PHENYTOIN NA EXTENDED 100 MG CAPSULE (FP) PO SCH (10:09)
[2022-06-25] MEDS ORDERED: methaDONE HCL 10 MG TABLET (FOR DETOX USE ONLY) PO ONE (10:00)
== END 2022-06-24 12:15 | disposition home or self-care (01) | DRG 773 ==
LOC: YASAS 15:50 → UNDOADMIN 19:13 → Y3N 19:13 → UNDOADMIN 06-21 10:00 → Y3N 06-21 10:00
PROVIDERS: ADMIT Allergy & Immunology; ATTEND Surgery
PROC: HZ2ZZZZ Detoxification Services for Substance Abuse Treatment (ICD-10-PCS; principal; 2022-06-20)
DX: F11.23 Opioid dependence with withdrawal (principal); F10.230 Alcohol dependence with withdrawal, uncomplicated; F14.20 Cocaine dependence, uncomplicated; F12.20 Cannabis dependence, uncomplicated; F17.210 Nicotine dependence, cigarettes, uncomplicated; E87.5 Hyperkalemia; F19.24 Other psychoactive substance dependence with psychoactive substance-induced mood disorder; F43.10 Post-traumatic stress disorder, unspecified; Z86.19 Personal history of other infectious and parasitic diseases; Z91.012 Allergy to eggs; Z59.00 Homelessness unspecified; Z56.0 Unemployment, unspecified
CPT/HCPCS: 36415; 80053; 80185; 85027; 86593; 86780; 87811; C9803-CS; U0003; U0005